=== PATIENT | male | born 1960 ===

== ENCOUNTER 2017-12-14 13:21 | Inpatient (IN) | payer OTHER ==
[~2017-12-14] VITALS: Ht 175.3 cm; Wt 86.4 kg
[~2017-12-14 13:21] MED LIST: CICL160A INH; CILO100T PO; CIPR1TAB11 PO; CMD10 PO; HYDR25TA4 PO; INSHI7030 SC; INSU1INJ SC; IRBE-37 PO; LEVA45AE INH; NORT25CA PO; ROSU40TA PO; [UNRECOGNIZED DRUG - OTHER] TOP
[2017-12-14] MEDS ORDERED: SODIUM CHLORIDE 0.9% 1000ML 1,000 ML IV STA (13:50)
--- NOTE | 2017-12-14 13:56 | EMERGENCY ROOM VISIT NOTE ---
History Report prepared by Kimo: Tiffany Lee Under the Supervision of: Dr. Solis Amaro M.D. First contact with patient: 13:40 Chief Complaint: FOOT PAIN Stated Complaint: L FOOT PAIN History of Present Illness The patient is a 57 year old male who presents to the Emergency Room with complaints of worsening left foot pain for the past several days. He is accompanied by 2 corrections officers from [facility], where he resides. He follows with the [facility] and states they recommended a CT scan and possible evaluation by Vascular Surgery. He currently has 79% stenosis of the mid left and right leg, seen on US done 11/21/17. His left pinky toe is black and draining. The patient rates his pain as a 6/10 in severity. He admits to a history of diabetes, PVD, COPD and HTN and states his sugars have been "pretty good" recently. He denies any pain in his legs or calves. He has not experienced any shortness of breath but admits he is a current smoker. His BSG in the field was 115. 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 A total of 10 systems reviewed and were otherwise negative. Past Medical & Surgical Medical Problems: (1) COPD (chronic obstructive pulmonary disease) (2) Diabetes mellitus (3) Hypertension (4) PVD (peripheral vascular disease) Social History Smoking Status: Current Every Day Smoker Drug Use: none Marital Status: single Housing Status: other ([facility]) Occupation Status: other Current/Historical Medications Scheduled Ciclesonide (Alvesco), 2 PUFF INH QAM Cilostazol (Pletal), 100 MG PO BID Ciprofloxacin Tab (Cipro), 500 MG PO BID Emollient Ointment (Hydrophor), 1 DOSE TOP BID Hydrochlorothiazide (Hctz), 25 MG PO QAM Insulin Human Isophan/Regular (Humulin 70/30), 25 UNITS SC QAM Insulin Isophan/Regular (Humulin 70/30), 30 UNITS SC QPM Irbesartan (Avapro), 1 TAB PO DAILY Nortriptyline (Pamelor), 25 MG PO HS Rosuvastatin Calcium (Crestor), 1 TAB PO DAILY Warfarin Sod (Coumadin), 10 MG PO HS Scheduled PRN Levalbuterol Tartrate (Levalbuterol Tartrate Hfa), 45 MCG INH TID PRN for PRN Allergies Coded Allergies: NO KNOWN DRUG ALLERGIES (Verified Allergy, Unknown, ., 12/14/17) Uncoded Allergies: BEETS (Allergy, Unknown, SWELLS UP, 12/07/15) Physical Exam Vital Signs Date Time Temp Pulse Resp B/P (MAP) Pulse Ox O2 Delivery O2 Flow Rate FiO2 12/14/17 15:31 89 20 232/92 98 Room Air 12/14/17 13:23 36.8 86 18 206/83 97 Room Air Physical Exam GENERAL: Patient is in Care Home garb, handcuffed to rail, well appearing and in no acute distress. EYES: No scleral icterus, unremarkable pupils. ENT: Mucous membranes moist, no nasal congestion. NECK: No masses appreciated, no meningismus, trachea is midline. RESPIRATORY: No dyspnea. Mild wheezing in bilateral lungs, no rhonchi. CARDIOVASCULAR: Regular rate and rhythm. No murmurs, rubs, gallops appreciated. GASTROINTESTINAL: Abdomen soft, nontender, no peritonitis. Bowel sounds positive. No masses appreciated. BACK: No midline tenderness, no CVA tenderness EXTREMITIES: Left foot is mildly swollen with first and fifth toes gangrenous and weeping, with a large ulceration along medial aspect of great toe. Normal motion all extremities, no cyanosis, no edema. NEUROLOGIC: Alert and oriented, no acute motor or sensory deficits, no focal weakness, cranial nerves grossly intact. SKIN: No rash, no jaundice, no diaphoresis. Medical Decision & Procedures ER Provider Diagnostic Interpretation: Radiology results and stated below per my review and radiologist interpretation. LEFT FOOT 3 VIEWS CLINICAL HISTORY: Gangrene of the first and fifth toes. FINDINGS: 3 views of the left foot are obtained. No prior studies are available for comparison at the time of dictation. The skeletal structures are heterogeneously osteopenic. No acute fracture is seen. There is postoperative change from fusion at the first interphalangeal joint with a cortical lag screw transfixing the joint. The orthopedic hardware is intact. Chronic posttraumatic deformity is seen in the distal shaft of the third, fourth, and fifth metatarsals. No bony erosion or periostitis is identified. Pes planus is observed. Degenerative spurring is seen along the dorsal aspect of the tarsal bones. Mild soft tissue edema is seen in the forefoot. There is atherosclerotic calcification of the regional arteries. IMPRESSION: 1. Soft tissue swelling in the forefoot with no acute bony abnormality identified. 2. Osteopenia with degenerative, chronic posttraumatic, and postoperative change as above. Electronically signed by: Ankush Osorio M.D. 12/14/2017 2:42 PM Laboratory Results 12/14/17 14:15 Red Blood Count 4.84, Mean Corpuscular Volume 86.8, Mean Corpuscular Hemoglobin 30.6, Mean Corpuscular Hemoglobin Concent 35.2, Mean Platelet Volume 9.2, Neutrophils (%) (Auto) 66.8, Lymphocytes (%) (Auto) 23.4, Monocytes (%) (Auto) 7.4, Eosinophils (%) (Auto) 1.8, Basophils (%) (Auto) 0.1, Neutrophils # (Auto) 5.86, Lymphocytes # (Auto) 2.05, Monocytes # (Auto) 0.65, Eosinophils # (Auto) 0.16, Basophils # (Auto) 0.01 12/14/17 14:15 Test 12/14/17 14:15 White Blood Count 8.77 K/uL (4.8-10.8) Red Blood Count 4.84 M/uL (4.7-6.1) Hemoglobin 14.8 g/dL (14.0-18.0) Hematocrit 42.0 % (42-52) Mean Corpuscular Volume 86.8 fL (80-100) Mean Corpuscular Hemoglobin 30.6 pg (25-34) Mean Corpuscular Hemoglobin Concent 35.2 g/dl (32-36) Platelet Count 163 K/uL (130-400) Mean Platelet Volume 9.2 fL (7.4-10.4) Neutrophils (%) (Auto) 66.8 % Lymphocytes (%) (Auto) 23.4 % Monocytes (%) (Auto) 7.4 % Eosinophils (%) (Auto) 1.8 % Basophils (%) (Auto) 0.1 % Neutrophils # (Auto) 5.86 K/uL (1.4-6.5) Lymphocytes # (Auto) 2.05 K/uL (1.2-3.4) Monocytes # (Auto) 0.65 K/uL (0.11-0.59) Eosinophils # (Auto) 0.16 K/uL (0-0.5) Basophils # (Auto) 0.01 K/uL (0-0.2) RDW Standard Deviation 48.4 fL (36.4-46.3) RDW Coefficient of Variation 15.4 % (11.5-14.5) Immature Granulocyte % (Auto) 0.5 % Immature Granulocyte # (Auto) 0.04 K/uL (0.00-0.02) Anion Gap 7.0 mmol/L (3-11) Estimated GFR () 108.5 Estimated GFR (Non- 93.6 BUN/Creatinine Ratio 13.3 (10-20) Calcium Level 8.7 mg/dl (8.5-10.1) C-Reactive Protein 0.81 mg/dl (0-0.29) Chemistry Specimen Hemolysis Laboratory results as reviewed by me. Medications Administered Medications (Trade) Dose Ordered Sig/Ivelisse Route Start Time Stop Time Status Last Admin Dose Admin Sodium Chloride 1,000 ml @ 75 mls/hr [id number] STAT IV 12/14/17 13:50 12/14/17 17:16 DC 12/14/17 14:23 75 MLS/HR ED Course 1341: The patient was evaluated in room B8. A complete history and physical exam was performed. 1350: NSS 1000 ml @ 75 mls/hr IV. 1500: Upon review of his records, the [facility] Care Clinic has been treating his left great toe. This morning during dressing change they noticed the left pinky toe was gangrenous and draining large amounts of pus. 1502: I reevaluated the patient. He is resting comfortably. I discussed my recommendation he remain in the hospital for further evaluation and management and he verbalized complete understanding and agreement. 1505: I discussed the patients case with Dr. Young, [facility] Hospitalist. I discussed getting blood cultures and starting antibiotics and the hospital medicine team will consult orthopedics or vascular surgery. The patient will be further evaluated. Medical Decision 57 yr old following with wound care for great left toe infection arrives for evaluation of this and left 5th digit ischemia. Pulses weak in foot but no evidnece of acute ischemia to entire leg at this time. Clearly infected 1st and 5th digits and I suspect they both just need to be removed as clearly becoming gangrenous. There is mild swelling of foot along though otherwise no evidence of systemic infection. Mild hypoglycemia thus given some food to eat as hadn't eaten all day. I do not feel that this diabetic male, with known vasculopathy will benefit from being discharged with outpatient follow up as he likely needs more urgent evaluation by ortho/vascular. Already following with wound care and will defer abx decisions to hospitalist as he is not septic nor evidence of bacteremia at this time. Medication Reconcilliation Current Medication List: was personally reviewed by me Blood Pressure Screening Patient's blood pressure: Elevated blood pressure Blood pressure disposition: Referred to PCP (The hospital medicine team will further monitor the patients elevated blood pressure) Consults Time Called: 1500 Consulting Physician: Dr. Young, [facility] Hospitalist Returned Call: [phone] I discussed the patients case with Dr. Young, [facility] Hospitalist. I discussed getting blood cultures and starting antibiotics and the hospital medicine team will consult orthopedics or vascular surgery. The patient will be further evaluated. Impression Primary Impression: Gangrene of toe of left foot Scribe Attestation The scribe's documentation has been prepared under my direction and personally reviewed by me in its entirety. I confirm that the note above accurately reflects all work, treatment, procedures, and medical decision making performed by me. Departure Information Dispostion Being Evaluated By Hospitalist Referrals No Doctor, Assigned (PCP) Patient Instructions My [facility]
[2017-12-14 14:25] LABS: BASO % 0.1 %; BASO ABS # 0.01 K/uL (0-0.2); EOS % 1.8 %; EOS ABS # 0.16 K/uL (0-0.5); HEMOGLOBIN 14.8 g/dL (14.0-18.0); IG# 0.04 K/uL (0.00-0.02); LYMPH % 23.4 %; LYMPH ABS # 2.05 K/uL (1.2-3.4); MEAN CELL VOLUME 86.8 fL (80-100); MEAN CORPUSCULAR HEMOGLOBIN 30.6 pg (25-34); MEAN CORPUSCULAR HGB CONC 35.2 g/dl (32-36); MEAN PLATELET VOLUME 9.2 fL (7.4-10.4); MONO % 7.4 %; MONO ABS # 0.65 K/uL (0.11-0.59); NEUT % 66.8 %; NEUT ABS # 5.86 K/uL (1.4-6.5); PLATELET COUNT 163 K/uL (130-400); RED CELL DISTRIBUTION WIDTH CV 15.4 % (11.5-14.5); RED CELL DISTRIBUTION WIDTH SD 48.4 fL (36.4-46.3); WHITE BLOOD COUNT 8.77 K/uL (4.8-10.8)
--- NOTE | 2017-12-14 14:44 | DIAGNOSTIC IMAGING REPORT ---
LEFT FOOT 3 VIEWS CLINICAL HISTORY: Gangrene of the first and fifth toes. FINDINGS: 3 views of the left foot are obtained. No prior studies are available for comparison at the time of dictation. The skeletal structures are heterogeneously osteopenic. No acute fracture is seen. There is postoperative change from fusion at the first interphalangeal joint with a cortical lag screw transfixing the joint. The orthopedic hardware is intact. Chronic posttraumatic deformity is seen in the distal shaft of the third, fourth, and fifth metatarsals. No bony erosion or periostitis is identified. Pes planus is observed. Degenerative spurring is seen along the dorsal aspect of the tarsal bones. Mild soft tissue edema is seen in the forefoot. There is atherosclerotic calcification of the regional arteries. IMPRESSION: 1. Soft tissue swelling in the forefoot with no acute bony abnormality identified. 2. Osteopenia with degenerative, chronic posttraumatic, and postoperative change as above. Electronically signed by: Ankush Osorio M.D. 12/14/2017 2:42 PM Dictated Date/Time: 12/14/2017 2:37 PM
[2017-12-14 14:55] LABS: BLOOD UREA NITROGEN 12 mg/dl (7-18); CALCIUM 8.7 mg/dl (8.5-10.1); CARBON DIOXIDE 28 mmol/L (21-32); CREATININE 0.89 mg/dl (0.60-1.40); GLUCOSE 54 mg/dl (70-99); POTASSIUM 4.1 mmol/L (3.5-5.1); SODIUM 143 mmol/L (136-145)
--- NOTE | 2017-12-14 15:42 | History and Physical ---
History & Physical Date & Time of Service: Dec 14, 2017 at 15:37 Chief Complaint: L Foot Pain Primary Care Physician: Ashleigh ONTIVEROS History of Present Illness Source: patient, other (correctional officers present at bedside) Mr. Sky Palma is a 57-year-old black gentleman with significant history of peripheral vascular disease, diabetes mellitus type 2, COPD, and hypertension. Patient is regularly seen at [facility] wound care clinic. As per records, they have requested vascular surgery to evaluate patient. Patient was in his usual state of health until a month ago when he developed dull pain on the fifth toe of left foot. Initially pain was dull but has been progressively getting worse in the last 2 days pain has become significantly sharper with a 9 out of 10 in severity. Furthermore patient reports some purulent drainage coming from affected toe. Pain tends to radiate across the metatarsals but does not move up cephalad. As per records patient has a 79% stenosis of the mid leg and right leg seen on ultrasound on 21 November 2017. He denies any other symptoms. No fevers, chills, chest pain, shortness of breath, nausea, vomiting , rest of ROS is negative. In the emergency department patient is afebrile hemodynamically stable Past Medical/Surgical History Medical Problems: (1) COPD (chronic obstructive pulmonary disease) (2) Diabetes mellitus (3) Hypertension (4) PVD (peripheral vascular disease) Social History Smoking Status: Current Every Day Smoker Drug Use: none Marital Status: single Occupational Status: other Allergies Coded Allergies: NO KNOWN DRUG ALLERGIES (Verified Allergy, Unknown, ., 12/14/17) Uncoded Allergies: BEETS (Allergy, Unknown, SWELLS UP, 12/07/15) Home Medications Scheduled Ciclesonide (Alvesco), 2 PUFF INH QAM Cilostazol (Pletal), 100 MG PO BID Ciprofloxacin Tab (Cipro), 500 MG PO BID Emollient Ointment (Hydrophor), 1 DOSE TOP BID Hydrochlorothiazide (Hctz), 25 MG PO QAM Insulin Human Isophan/Regular (Humulin 70/30), 25 UNITS SC QAM Insulin Isophan/Regular (Humulin 70/30), 30 UNITS SC QPM Irbesartan (Avapro), 1 TAB PO DAILY Nortriptyline (Pamelor), 25 MG PO HS Rosuvastatin Calcium (Crestor), 1 TAB PO DAILY Warfarin Sod (Coumadin), 10 MG PO HS Scheduled PRN Levalbuterol Tartrate (Levalbuterol Tartrate Hfa), 45 MCG INH TID PRN for PRN Review of Systems Constitutional: No fever, No chills, No sweats, No weight loss, No weakness, No fatigue, No problem reported Eyes: No worsening of vision, No eye pain, No redness, No discharge, No diplopia, No problem reported ENT: No hearing loss, No unusual epistaxis, No nasal symptoms, No sore throat, No tinnitus, No dental problems, No trouble swallowing, No problem reported Respiratory: No cough, No sputum, No wheezing, No shortness of breath, No dyspnea on exertion, No dyspnea at rest, No hemoptysis, No problem reported Cardiovascular: No chest pain, No orthopnea, No PND, No edema, No claudication , No palpitations, No problem reported Abdomen: No pain, No nausea, No vomiting, No diarrhea, No constipation, No GI bleeding, No problem reported Musculoskeletal: + joint pain ((L) 5th toe), No muscle pain, No swelling, No calf pain, No problem reported Genitourinary - Male: No hematuria, No dysuria, No urinary frequency, No urinary urgency, No urinary hesitancy, No urinary retention, No urinary incontinence, No penile discharge, No lesions, No impotence, No problem reported Neurologic: No memory loss, No paralysis, No weakness, No numbness/tingling, No vertigo, No balance problems, No problem reported Psychiatric: No depression symptoms, No anhedonism, No anxiety, No insomnia, No substance abuse, No problem reported Endocrine: No fatigue, No excessive thirst, No excessive urination, No problem reported Hematologic / Lymphatic: No abnormal bleeding/bruising, No clotting problems, No swollen lymph nodes, No night sweats, No problem reported Allergic / Immunologic: No environmental allergies, No seasonal allergies, No pet sensitivities, No food allergies, No hives, No frequent infections, No poor healing, No prolonged convalescence, No problem reported Physical Exam Vital Signs Date Time Temp Pulse Resp B/P (MAP) Pulse Ox O2 Delivery O2 Flow Rate FiO2 12/14/17 15:31 89 20 232/92 98 Room Air 12/14/17 13:23 36.8 86 18 206/83 97 Room Air General Appearance: WD/WN, no apparent distress Head: normocephalic, atraumatic Eyes: PERRL, EOMI ENT: normal ENT inspection Neck: supple, no adenopathy, no JVD, trachea midline Respiratory/Chest: chest non-tender, lungs clear, normal breath sounds, no respiratory distress, no accessory muscle use Cardiovascular: regular rate, rhythm, no edema, no gallop, no JVD, no murmur, + pertinent finding (distal pulses are present but faint) Abdomen/GI: normal bowel sounds, non tender, soft Extremities/Musculoskelatal: normal inspection, no calf tenderness, no pedal edema, normal range of motion 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, no motor/sensory deficits, oriented x 3 Skin: + pertinent finding (significant color change of (L)5th toe; gangrene - no crepitus apprecaited) Diagnostics Laboratory Results Results Past 24 Hours Test 12/14/17 14:15 Range/Units White Blood Count 8.77 4.8-10.8 K/uL Red Blood Count 4.84 4.7-6.1 M/uL Hemoglobin 14.8 14.0-18.0 g/dL Hematocrit 42.0 42-52 % Mean Corpuscular Volume 86.8 80-100 fL Mean Corpuscular Hemoglobin 30.6 25-34 pg Mean Corpuscular Hemoglobin Concent 35.2 32-36 g/dl Platelet Count 163 130-400 K/uL Mean Platelet Volume 9.2 7.4-10.4 fL Neutrophils (%) (Auto) 66.8 % Lymphocytes (%) (Auto) 23.4 % Monocytes (%) (Auto) 7.4 % Eosinophils (%) (Auto) 1.8 % Basophils (%) (Auto) 0.1 % Neutrophils # (Auto) 5.86 1.4-6.5 K/uL Lymphocytes # (Auto) 2.05 1.2-3.4 K/uL Monocytes # (Auto) 0.65 0.11-0.59 K/uL Eosinophils # (Auto) 0.16 0-0.5 K/uL Basophils # (Auto) 0.01 0-0.2 K/uL RDW Standard Deviation 48.4 36.4-46.3 fL RDW Coefficient of Variation 15.4 11.5-14.5 % Immature Granulocyte % (Auto) 0.5 % Immature Granulocyte # (Auto) 0.04 0.00-0.02 K/uL Sodium Level 143 136-145 mmol/L Potassium Level 4.1 3.5-5.1 mmol/L Chloride Level 108 98-107 mmol/L Carbon Dioxide Level 28 21-32 mmol/L Anion Gap 7.0 3-11 mmol/L Blood Urea Nitrogen 12 7-18 mg/dl Creatinine 0.89 0.60-1.40 mg/dl Estimated GFR () 108.5 Estimated GFR (Non- 93.6 BUN/Creatinine Ratio 13.3 10-20 Random Glucose 54 70-99 mg/dl Calcium Level 8.7 8.5-10.1 mg/dl C-Reactive Protein 0.81 0-0.29 mg/dl Chemistry Specimen Hemolysis Diagnostic Radiology Left X-ray CLINICAL HISTORY: Gangrene of the first and fifth toes. FINDINGS: 3 views of the left foot are obtained. No prior studies are available for comparison at the time of dictation. The skeletal structures are heterogeneously osteopenic. No acute fracture is seen. There is postoperative change from fusion at the first interphalangeal joint with a cortical lag screw transfixing the joint. The orthopedic hardware is intact. Chronic posttraumatic deformity is seen in the distal shaft of the third, fourth, and fifth metatarsals. No bony erosion or periostitis is identified. Pes planus is observed. Degenerative spurring is seen along the dorsal aspect of the tarsal bones. Mild soft tissue edema is seen in the forefoot. There is atherosclerotic calcification of the regional arteries. IMPRESSION: 1. Soft tissue swelling in the forefoot with no acute bony abnormality identified. 2. Osteopenia with degenerative, chronic posttraumatic, and postoperative change as above. Impression Assessment and Plan D.E 57/M admitted for gangrene of the left foot fifth digit. Patient has a known history of peripheral vascular disease and diabetes myelitis. CRP obtained emergency department is elevated will obtain an ESR and further imaging. As per records patient is well known to the [facility] wound care center and they have requested that vascular surgery see and evaluate patient. Since diabetic infections tend to be polymicrobial patient will be covered with broad-spectrum antibiotics and will be started on intravenous vancomycin and piperacillin-tazobactam. Patient currently afebrile hemodynamically stable. 1) (L) 5th tow Gangrene - possible osteomyelitis - known Hx of PVD and DM-II - vancomycin and pipercillin-tazobactam - Vascular Surgery and Wound services consulted - obtain MRI and ESR 2) Peripheral VAscular Disease - on anticoagulation therapy - resume warfarin and cilostazol 3) Hypertension - uncontrolled - clonidine 0.1mg PO NOW - resume HCTZ 25 mg PO qAM - might need further adjustment of medications 4) Diabetes mellitus type II - check CBG as per nursing - resume insulin therapy with sliding scale - ADA diet Admit: Med/Surg VS qshift Diet: ADA< heart healthy Activity: ad leanne DVT ppx SCD; on AC therapy Code Status FULL Resuscitation Status VTE Prophylaxis Will order VTE Prophylaxis: Yes
[2017-12-14] MEDS ORDERED: GLUCAGON FOR INJ 1 MG VIAL SQ PRN (15:45)
[2017-12-14] MEDS ORDERED: GLUCOSE 40% GEL 15 GM TUBE PO PRN (15:45)
[2017-12-14] MEDS ORDERED: DEXTROSE 50% 50 ML SYR IV PRN (15:45)
[2017-12-14] MEDS ORDERED: GLUCOSE 10 TABS/TUBE PO PRN (15:45)
[2017-12-14] MEDS ORDERED: VANCOMYCIN CONSULT ACTIVE PRN (16:15)
[2017-12-14] MEDS ORDERED: CLONIDINE HCL 0.1 MG TAB PO ONE ×2 (16:15→18:45)
[2017-12-14] MEDS ORDERED: PIPERACILL/TAZOBAC CONSULT ACTIVE PRN (16:15)
[2017-12-14] MEDS ORDERED: PATIENT'S HEIGHT AND/OR WEIGHT NEEDED SCH (16:30)
[2017-12-14 16:45] VITALS: BP 190/84; PULSE 88; TEMP 36.8; O2SAT 97; Ht 175.3 cm; Wt 86.4 kg
[2017-12-14] MEDS ORDERED: PIPERACILL/TAZOBAC IV 3.375 GM in DEXTROSE 5% 100ML 100 ML IV ONE (17:16)
[2017-12-14] MEDS ORDERED: VANCOMYCIN IV 2,000 MG in SODIUM CHLORIDE 0.9% 500ML 500 ML IV ONE (17:16)
[2017-12-14] MEDS ORDERED: INSULIN HUMAN 70% NPH/30% REGULAR SC SCH (17:30)
[2017-12-14] MEDS: INSULIN ASPART 100 UNITS/ML 3 ML PEN SC SCH ×2 (17:31→21:24)
[2017-12-14] MEDS ORDERED: OXYCODONE HCL IR 5 MG TAB (IMMEDIATE RELEASE) PO STA (18:38)
[2017-12-14 18:45] VITALS: BP 206/100
[2017-12-14] MEDS: INS REG SC SCH (18:52)
[2017-12-14] MEDS: INS HUMAN ISOPH SC SCH (18:52)
--- NOTE | 2017-12-14 19:25 | Pharmacy Progress Note ---
Pharmacy Abx Initial Consult Date of Service Dec 14, 2017. Pharmacy Dosing Scope Date of Consult: 12/14/17 Consultation requested by: Dr. Velasquez Pharmacy is consulted to initiate Vancomycin and Zosyn IV dosing therapy, order appropriate labs and adjust drug dose/frequency. Subjective The patient is a 57 year old male admitted on Dec 14, 2017 at 15:54. Objective Height (Feet): 5 Height (Inches): 9.00 Weight (Kilograms): 86.360 Vital Signs (Past 12Hrs) Vital Signs Past 12 Hours Date Time Temp Pulse Resp B/P (MAP) Pulse Ox O2 Delivery O2 Flow Rate FiO2 12/14/17 16:45 36.8 88 20 190/84 97 Room Air 12/14/17 16:29 89 20 200/88 98 12/14/17 15:31 89 20 232/92 98 Room Air 12/14/17 13:23 36.8 86 18 206/83 97 Room Air Lab Results (24Hrs) Laboratory Tests (24 Hours) Test 12/14/17 14:15 12/14/17 19:04 C-Reactive Protein 0.81 mg/dl (0-0.29) H White Blood Count 8.77 K/uL (4.8-10.8) Red Blood Count 4.84 M/uL (4.7-6.1) Hemoglobin 14.8 g/dL (14.0-18.0) Hematocrit 42.0 % (42-52) Mean Corpuscular Volume 86.8 fL (80-100) Mean Corpuscular Hemoglobin 30.6 pg (25-34) Mean Corpuscular Hemoglobin Concent 35.2 g/dl (32-36) Platelet Count 163 K/uL (130-400) Mean Platelet Volume 9.2 fL (7.4-10.4) Neutrophils (%) (Auto) 66.8 % Lymphocytes (%) (Auto) 23.4 % Monocytes (%) (Auto) 7.4 % Eosinophils (%) (Auto) 1.8 % Basophils (%) (Auto) 0.1 % Neutrophils # (Auto) 5.86 K/uL (1.4-6.5) Lymphocytes # (Auto) 2.05 K/uL (1.2-3.4) Monocytes # (Auto) 0.65 K/uL (0.11-0.59) H Eosinophils # (Auto) 0.16 K/uL (0-0.5) Basophils # (Auto) 0.01 K/uL (0-0.2) Micro Results Date/Time Source Procedure Growth Status 12/14/17 18:20 Nasal MRSA DNA Surveillance Screen Pending Received Risk Factors for Resistance * Resident in a [facility] or extended-care facility --> prisoner Assessment & Plan Assessment 57 year old male on empiric IV Vancomycin and Zosyn for left 5th toe gangrene, possible osteomyelitis. * Baseline renal function unclear, but no renal impairment noted. Most recent sCr = 0.89mg/dL with estimated CrCl ~97 mL/min. Estimated pharmacokinetic parameters: * Ke ~0.085/hr, T1/2 ~8.1 hrs Plan Vancomycin IV * Loading dose: 2000 mg (~23 mg/kg) IV x 1 * Maintenance dose: 1250 mg IV (~15 mg/kg) every 10 hours * Goal trough level for osteomyelitis : 15 to 20 mcg/mL * Trough level ordered for 12/16 @ 1130 (prior to 4th dose and should be reflective of steady state) Piperacillin/tazobactam * 3.375 g bolus administered over 30 minutes, then 3.375 g IV extended infusion every 8 hours for CrCl greater than 20 mL/min Pharmacy will continue to follow and will adjust dose/frequency as necessary. Thank you.
--- NOTE | 2017-12-14 19:28 | DIAGNOSTIC IMAGING REPORT ---
MRI OF THE LEFT FOREFOOT WITHOUT IV CONTRAST CLINICAL HISTORY: Gangrene. COMPARISON STUDY: Radiographs of left foot dated 12/14/2017. TECHNIQUE: MRI of the left forefoot is performed utilizing various T1 and T2-weighted sequences in the axial, sagittal, and coronal planes. IV contrast was not administered for this examination. The examination is severely compromised by motion artifact. This degrades diagnostic utility. FINDINGS: There is susceptibility artifact identified in the first toe secondary to orthopedic fixation at the first interphalangeal joint. Susceptibility artifact degrades assessment of the adjacent osseous structures. Marrow edema is suggested in the first proximal and middle phalanges. This is difficult to assess. Chronic post traumatic deformity is suggested in the distal third through fifth metatarsals. Soft tissue edema is seen throughout the forefoot, possibly resulting cellulitis. There is myositis in the regional musculature. The flexor extensor tendons are not well visualized. No organized fluid collection is suggested but this is not well assessed. IMPRESSION: 1. Severely motion degraded examination. This compromise diagnostic utility. 2. The first toe cannot be assessed due to extensive susceptibility artifact from metallic orthopedic hardware. 3. Marrow edema is suggested within the fifth proximal and middle phalanges. Osteomyelitis would be impossible to exclude. Clinical correlation will be required. 4. Diffuse soft tissue edema is noted throughout the forefoot and suggests cellulitis. Clinical correlation will be required. Dictated: 12/14/2017 5:56 PM Transcribed: 12/14/2017 7:28 PM [place] Electronically signed by: Ankush Osorio M.D. 12/14/2017 7:57 PM Dictated Date/Time: 12/14/2017 5:56 PM
[2017-12-14 19:37] LABS: INR 1.5 (0.9-1.1)
[2017-12-14] MEDS: CILOSTAZOL 100 MG TAB PO SCH (21:25)
[2017-12-14] MEDS: WARFARIN SOD 10 MG TAB PO SCH (21:26)
[2017-12-14] MEDS: NORTRIPTYLINE HCL 25 MG CAP PO SCH (21:27)
[2017-12-14] MEDS: PIPERACILL/TAZOBAC IV 3.375 GM in DEXTROSE 5% 100ML IV SCH (21:55)
[2017-12-14 22:14] VITALS: BP 184/94; PULSE 81
[2017-12-14] MEDS: OXYCODONE HCL IR 5 MG TAB (IMMEDIATE RELEASE) PO PRN (23:41)
[2017-12-15 00:22] VITALS: BP 176/93; PULSE 77; TEMP 37.1; O2SAT 97
[2017-12-15 05:33] LABS: BASO % 0.1 %; BASO ABS # 0.01 K/uL (0-0.2); EOS % 2.4 %; EOS ABS # 0.19 K/uL (0-0.5); HEMATOCRIT 36.5 % (42-52); HEMOGLOBIN 12.3 g/dL (14.0-18.0); IG# 0.04 K/uL (0.00-0.02); LYMPH % 34.3 %; LYMPH ABS # 2.73 K/uL (1.2-3.4); MEAN CELL VOLUME 87.3 fL (80-100); MEAN CORPUSCULAR HEMOGLOBIN 29.4 pg (25-34); MEAN CORPUSCULAR HGB CONC 33.7 g/dl (32-36); MEAN PLATELET VOLUME 8.7 fL (7.4-10.4); MONO % 9.7 %; MONO ABS # 0.77 K/uL (0.11-0.59); NEUT ABS # 4.22 K/uL (1.4-6.5); PLATELET COUNT 145 K/uL (130-400); RED CELL DISTRIBUTION WIDTH CV 15.2 % (11.5-14.5); RED CELL DISTRIBUTION WIDTH SD 48.2 fL (36.4-46.3); WHITE BLOOD COUNT 7.96 K/uL (4.8-10.8)
[2017-12-15 06:10] LABS: CALCIUM 8.3 mg/dl (8.5-10.1); CREATININE 0.91 mg/dl (0.60-1.40); POTASSIUM 3.8 mmol/L (3.5-5.1)
[2017-12-15] MEDS: PIPERACILL/TAZOBAC IV 3.375 GM in DEXTROSE 5% 100ML IV SCH ×3 (06:23→21:41)
[2017-12-15] MEDS: VANCOMYCIN IV 1,250 MG in SODIUM CHLORIDE 0.9% 250ML 250 ML IV SCH ×2 (06:23→16:13)
[2017-12-15] MEDS: OXYCODONE HCL IR 5 MG TAB (IMMEDIATE RELEASE) PO PRN ×4 (06:24→23:34)
[2017-12-15 07:14] VITALS: BP 173/84; PULSE 73; TEMP 36.8; O2SAT 97
[2017-12-15] MEDS ORDERED: INSULIN 70% ASPART PROTAMINE/30% ASPART SC SCH (08:00)
[2017-12-15] MEDS: INSULIN ASPART 100 UNITS/ML 3 ML PEN SC SCH ×4 (09:31→21:36)
[2017-12-15] MEDS: INS REG SC SCH ×2 (09:35→17:54)
[2017-12-15] MEDS: INS HUMAN ISOPH SC SCH ×2 (09:35→17:54)
[2017-12-15] MEDS: IRBESARTAN 150 MG TAB PO SCH (09:36)
[2017-12-15] MEDS: ROSUVASTATIN CALCIUM 20 MG TAB PO SCH (09:36)
[2017-12-15] MEDS: CILOSTAZOL 100 MG TAB PO SCH ×2 (09:36→21:40)
[2017-12-15] MEDS: HYDROCHLOROTHIAZIDE 25 MG TAB PO SCH (09:36)
--- NOTE | 2017-12-15 12:09 | Progress Note ---
Subjective Date of Service: Dec 15, 2017. Subjective Pt evaluation today including: conversation w/ patient, physical exam, chart review, lab review, review of studies, review of inpatient medication list Pain: 8-9 Voiding: no voiding problems, no incontinence Pt is seen and examined by me. Pt still has alot of pain in his toe, but denies cp,sob,dizziness,palpitation and loss of consciousness. Problem List Medical Problems: (1) Gangrene of left foot Status: Acute (2) Gangrene of toe of left foot Status: Acute Review of Systems Musculoskeletal: + joint pain (left fifth toe) Objective Vital Signs Date Time Temp Pulse Resp B/P (MAP) Pulse Ox O2 Delivery O2 Flow Rate FiO2 12/15/17 10:05 Room Air 12/15/17 07:14 36.8 73 18 173/84 (113) 97 Room Air 12/15/17 00:22 37.1 77 18 176/93 (120) 97 Room Air 12/14/17 23:59 Room Air 12/14/17 22:14 81 184/94 (124) 12/14/17 18:45 206/100 (135) 12/14/17 16:45 36.8 88 20 190/84 97 Room Air 12/14/17 16:29 89 20 200/88 98 12/14/17 15:31 89 20 232/92 98 Room Air 12/14/17 13:23 36.8 86 18 206/83 97 Room Air Physical Exam Comments: General Appearance: WD/WN, no apparent distress Head: normocephalic, atraumatic Eyes: PERRL, EOMI ENT: normal ENT inspection Neck: supple, no adenopathy, no JVD, trachea midline Respiratory/Chest: chest non-tender, lungs clear, normal breath sounds, no respiratory distress, no accessory muscle use Cardiovascular: regular rate, rhythm, no edema, no gallop, no JVD, no murmur, + pertinent finding (distal pulses are present but faint) Abdomen/GI: normal bowel sounds, non tender, soft Extremities/Musculoskelatal: normal inspection, no calf tenderness, no pedal edema, normal range of motion Neurologic/Psych: record maker II-XII nml as tested, no motor/sensory deficits, oriented x 3 Skin: + pertinent finding (significant color change of (L)5th toe; gangrene - no crepitus apprecaited) Laboratory Results Last 24 Hours Test 12/14/17 14:15 12/14/17 16:47 12/14/17 19:04 12/14/17 20:34 White Blood Count 8.77 K/uL Red Blood Count 4.84 M/uL Hemoglobin 14.8 g/dL Hematocrit 42.0 % Mean Corpuscular Volume 86.8 fL Mean Corpuscular Hemoglobin 30.6 pg Mean Corpuscular Hemoglobin Concent 35.2 g/dl Platelet Count 163 K/uL Mean Platelet Volume 9.2 fL Neutrophils (%) (Auto) 66.8 % Lymphocytes (%) (Auto) 23.4 % Monocytes (%) (Auto) 7.4 % Eosinophils (%) (Auto) 1.8 % Basophils (%) (Auto) 0.1 % Neutrophils # (Auto) 5.86 K/uL Lymphocytes # (Auto) 2.05 K/uL Monocytes # (Auto) 0.65 K/uL Eosinophils # (Auto) 0.16 K/uL Basophils # (Auto) 0.01 K/uL RDW Standard Deviation 48.4 fL RDW Coefficient of Variation 15.4 % Immature Granulocyte % (Auto) 0.5 % Immature Granulocyte # (Auto) 0.04 K/uL Sodium Level 143 mmol/L Potassium Level 4.1 mmol/L Chloride Level 108 mmol/L Carbon Dioxide Level 28 mmol/L Anion Gap 7.0 mmol/L Blood Urea Nitrogen 12 mg/dl Creatinine 0.89 mg/dl Estimated GFR () 108.5 Estimated GFR (Non- 93.6 BUN/Creatinine Ratio 13.3 Random Glucose 54 mg/dl Calcium Level 8.7 mg/dl C-Reactive Protein 0.81 mg/dl Chemistry Specimen Hemolysis Bedside Glucose 124 mg/dl 233 mg/dl Erythrocyte Sedimentation Rate 59 mm/hr Prothrombin Time 16.1 SECONDS Prothromb Time International Ratio 1.5 Test 12/15/17 05:06 12/15/17 06:31 12/15/17 06:54 White Blood Count 7.96 K/uL Red Blood Count 4.18 M/uL Hemoglobin 12.3 g/dL Hematocrit 36.5 % Mean Corpuscular Volume 87.3 fL Mean Corpuscular Hemoglobin 29.4 pg Mean Corpuscular Hemoglobin Concent 33.7 g/dl Platelet Count 145 K/uL Mean Platelet Volume 8.7 fL Neutrophils (%) (Auto) 53.0 % Lymphocytes (%) (Auto) 34.3 % Monocytes (%) (Auto) 9.7 % Eosinophils (%) (Auto) 2.4 % Basophils (%) (Auto) 0.1 % Neutrophils # (Auto) 4.22 K/uL Lymphocytes # (Auto) 2.73 K/uL Monocytes # (Auto) 0.77 K/uL Eosinophils # (Auto) 0.19 K/uL Basophils # (Auto) 0.01 K/uL RDW Standard Deviation 48.2 fL RDW Coefficient of Variation 15.2 % Immature Granulocyte % (Auto) 0.5 % Immature Granulocyte # (Auto) 0.04 K/uL Sodium Level 138 mmol/L Potassium Level 3.8 mmol/L Chloride Level 104 mmol/L Carbon Dioxide Level 29 mmol/L Anion Gap 5.0 mmol/L Blood Urea Nitrogen 13 mg/dl Creatinine 0.91 mg/dl Est Creatinine Clear Calc Drug Dose 95.2 ml/min Estimated GFR () 106.5 Estimated GFR (Non- 91.9 BUN/Creatinine Ratio 14.0 Random Glucose 52 mg/dl Calcium Level 8.3 mg/dl Bedside Glucose 74 mg/dl 95 mg/dl Assessment and Plan 57/M admitted for gangrene of the left foot fifth digit. Patient has a known history of peripheral vascular disease and diabetes myelitis. CRP obtained emergency department is elevated will obtain an ESR and further imaging. As per records patient is well known to the [facility] wound care center and they have requested that vascular surgery see and evaluate patient. Since diabetic infections tend to be polymicrobial patient will be covered with broad- spectrum antibiotics and will be started on intravenous vancomycin and piperacillin-tazobactam. Patient currently afebrile hemodynamically stable. 1) (L) 5th tow Gangrene - possible osteomyelitis - known Hx of PVD and DM-II - vancomycin and pipercillin-tazobactam - Vascular Surgery and Wound services consulted- pending - MRI: Marrow edema is suggested within the fifth proximal and middle phalanges.Osteomyelitis would be impossible to exclude. Clinical correlation will be required. Diffuse soft tissue edema is noted throughout the forefoot and suggests cellulitis. 2) Peripheral Vascular Disease - on anticoagulation therapy - resume warfarin and cilostazol 3) Hypertension - uncontrolled - clonidine 0.1mg PO NOW - resume HCTZ 25 mg PO qAM - might need further adjustment of medications 4) Diabetes mellitus type II - check CBG as per nursing - resume insulin therapy with sliding scale - ADA diet Admit: Med/Surg VS qshift Diet: ADA< heart healthy Activity: ad leanne DVT ppx SCD; on AC therapy Code Status FULL Continued [facility] stay due to: multiple IV medications needed Discharge planning: other
[2017-12-15 15:16] VITALS: BP 153/78; PULSE 88; TEMP 37; O2SAT 95
[2017-12-15 16:00] VITALS: O2SAT 95
[2017-12-15] MEDS: NORTRIPTYLINE HCL 25 MG CAP PO SCH (21:40)
[2017-12-15] MEDS: WARFARIN SOD 10 MG TAB PO SCH (21:41)
[2017-12-15 23:21] VITALS: BP 168/83; PULSE 84; TEMP 36.7; O2SAT 98
[2017-12-16] MEDS: VANCOMYCIN IV 1,250 MG in SODIUM CHLORIDE 0.9% 250ML 250 ML IV SCH ×3 (01:52→21:43)
[2017-12-16] MEDS: PIPERACILL/TAZOBAC IV 3.375 GM in DEXTROSE 5% 100ML IV SCH ×4 (06:21→21:43)
[2017-12-16] MEDS: OXYCODONE HCL IR 5 MG TAB (IMMEDIATE RELEASE) PO PRN ×3 (06:29→18:37)
[2017-12-16 07:25] VITALS: BP 181/81; PULSE 98; TEMP 36.8; O2SAT 97
[2017-12-16 07:33] LABS: CREATININE 0.95 mg/dl (0.60-1.40)
[2017-12-16] MEDS: IRBESARTAN 150 MG TAB PO SCH (08:06)
[2017-12-16] MEDS: CILOSTAZOL 100 MG TAB PO SCH ×2 (08:06→21:00)
[2017-12-16] MEDS: HYDROCHLOROTHIAZIDE 25 MG TAB PO SCH (08:06)
[2017-12-16] MEDS: ROSUVASTATIN CALCIUM 20 MG TAB PO SCH (08:06)
[2017-12-16] MEDS: INS HUMAN ISOPH SC SCH ×2 (08:09→18:34)
[2017-12-16] MEDS: INSULIN ASPART 100 UNITS/ML 3 ML PEN SC SCH ×4 (08:09→20:59)
[2017-12-16] MEDS: INS REG SC SCH ×2 (08:09→18:34)
[2017-12-16] MEDS ORDERED: OPTIRAY 320 IV PRN (08:15)
--- NOTE | 2017-12-16 08:34 | CARDIOLOGY CONSULTATION ---
DATE OF CONSULTATION: 12/16/2017 CONSULTATION REQUESTED BY: Silvano Velasquez MD. REASON FOR CONSULTATION: Lower extremity ulceration, question peripheral arterial disease. HISTORY OF PRESENT ILLNESS: Mr. Palma is a 57-year-old man with a history of longstanding insulin-dependent diabetes, hypertension, hyperlipidemia, COPD, ongoing tobacco abuse, and peripheral arterial disease who was previously seen by me at the wound care center and was admitted to [facility] in the setting of progression of new ulceration involving his left fifth toe. Cardiology consulted for further management of his peripheral arterial disease. The patient has been followed by the wound care center for an ulceration involving his first digit on his left foot for more than a month. This initially occurred in the setting of clipping toenail. Of note, patient has a prior history of hammertoe surgery involving that first digit on his left foot with questionable in place hardware at that site. The patient's previous peripheral arterial disease workup has included a lower extremity duplex done at the retirement where he is currently located which showed a right mid SFA stenosis, read as 75-90% and also DPA stenosis of the left which was read as 75% stenosis with a peak systolic velocity of 126. More recently, the patient's first digit ulceration has been slowly healing. The day prior to admission he was noted at the retirement to have pus draining from the fifth digit on his left foot and admission was recommended. Since admission, he has been started on broad spectrum antibiotics with vancomycin and Zosyn. He denies any fevers, chills or worsening pain at his foot. PAST MEDICAL HISTORY: 1. Diabetes, longstanding, on insulin. 2. Hypertension, difficult to control. 3. Dyslipidemia. 4. Prior hammertoe surgery. 5. Questionable COPD. 6. Questionable coronary artery disease. 7. History of possible left lower extremity DVT in 2009 on anticoagulation. 8. Peripheral arterial disease. SOCIAL HISTORY: The patient currently a prisoner at [facility]. He is an ongoing smoker. FAMILY HISTORY: Denies family history of premature coronary artery disease or sudden cardiac . ALLERGIES: No known drug allergies. HOME MEDICATIONS: Include ciclesonide, cilostazol, ciprofloxacin, hydrochlorothiazide, insulin, Valsartan, nortriptyline, rosuvastatin and warfarin. REVIEW OF SYSTEMS: Complete and otherwise negative unless listed in HPI. PHYSICAL EXAMINATION: VITAL SIGNS: Temperature 36.8, pulse 98, blood pressure 181/81, satting 97% on room air. GENERAL: The patient appears comfortable in no acute distress. HEENT: Sclerae are anicteric. Oropharynx is clear. LUNGS: Clear to auscultation bilaterally. HEART: Regular rate and rhythm with no appreciable murmurs. ABDOMEN: Soft, nontender. EXTREMITIES: He has 1+ radial pulses bilaterally. Distal lower extremities are thin without significant edema. DP and PT pulses nonpalpable bilaterally. Distal extremity is warm. Capillary refill could not be assessed. He has a healing small ulceration over the medial aspect of his first digit on his left foot. This is improved from a week and a half ago. His fifth digit is black, foul smelling without significant drainage. NEUROLOGIC: Decreased sensation to light touch in his feet bilaterally. PSYCHIATRIC: He is alert and oriented x3. LABORATORY DATA: White blood cell count on presentation 8.7, hemoglobin of 14.8, platelets of 163. His INR was 1.5. His creatinine today is 0.95. C-reactive protein mildly elevated at 0.81. IMAGING: Lower extremity MRI suggested marrow edema involving the fifth proximal and mid phalanges. Suspicion for osteomyelitis and diffuse soft tissue edema noted throughout the forefoot suggest possible cellulitis. IMPRESSION AND PLAN: 1. Left lower extremity diabetic foot ulceration, gangrenous fifth digit, suspected osteomyelitis. 2. Moderate peripheral arterial disease by prior lower extremity arterial duplex. 3. Insulin-dependent diabetes. 4. Hypertension. 5. Ongoing tobacco use. 6. Prior deep venous thrombosis on anticoagulation. 7. Dyslipidemia on high intensity statin. Mr. Palma is here with infection of fifth digit on his left foot in the setting of prior lower extremity arterial duplex suggesting moderate disease. Reviewed prior ultrasound report and velocities noted do not correlate with degree of stenosis suggested in final impression. ABIs were within normal limits. Recommend additional noninvasive imaging at this time and would obtain a CTA with bilateral lower extremity runoff to further evaluate left lower extremity arterial system. Otherwise, agree with continued antibiotics. Recommend consulting orthopedics for management of osteomyelitis/gangrenous digit. The patient previously on anticoagulation for what sounds to be a remote DVT. In case need for possible angiogram, possible surgical resection we would stop Coumadin at this time. Should be on baby aspirin. Otherwise, continue current statin and titrate antihypertensives. Further recommendations pending findings on CTA. Thank you for allowing us to participate in the care of this patient. CONTRERAS
[2017-12-16] MEDS ORDERED: VANCOMYCIN TROUGH ONE (11:30)
--- NOTE | 2017-12-16 14:05 | Pharmacy Progress Note ---
Pharmacy Abx Dose Short Note Date of Service Dec 16, 2017. Assessment & Plan 12/17/17 Trough therapeutic at 20.4. small decline in renal fxn overnight. Will lengthen dosing interval from q10 to q12. Trough ordered for 12/20/17 @0330. 12/16/17 Mr. Palma' trough prior to Css came back therapeutic, 18.1mcg/mL. Will continue current dose and regimen, given renal fxn has remained stable and he has a low risk of accumulation. Further, given the possibility of osteomyelitis in the setting of PVD I feel levels closer to 20mcg/mL should be achieved. Will order lvl for 12/18/17 @0330 to ensure we are achieving therapeutic lvls in Mr. Palma. R/o gangrene: Spoke with Dr. Craven about possibly adding Clindamycin for anti- toxin affect. Being deferred to ortho at this juncture. Pharmacy will continue to follow and will adjust dose/frequency as necessary. Thank you.
--- NOTE | 2017-12-16 14:06 | DIAGNOSTIC IMAGING REPORT ---
ANGIO AA REGGIE [facility]OFF CLINICAL HISTORY: 57 years-old Male presenting with gangrene of the left foot. TECHNIQUE: Multidetector CT angiography of the abdomen and pelvis with bilateral lower extremity runoff was performed after the administration of intravenous contrast. 3-D volumetric and/or maximum intensity projection (MIP) images were subsequently reconstructed for review. IV contrast: 120 mL of Optiray 320. A dose lowering technique was used consistent with the principles of ALARA (as low as reasonably achievable). Stenosis measurements were based on NASCET-like criteria. COMPARISON: None. CT DOSE (mGy.cm): The estimated cumulative dose is 1687.39 mGy.cm. FINDINGS: Fiction And Nonfiction Author topogram: Unremarkable. Vasculature: Abdomen and pelvis: Mild calcified atherosclerotic plaque of the normal caliber abdominal aorta. Celiac, superior mesenteric, bilateral single renal, and inferior mesenteric arteries patent. A replaced right hepatic artery is noted arising from the superior mesenteric artery. Atherosclerosis of the patent SMA. Bilateral common, internal, and external iliac arteries patent despite calcified atherosclerotic plaque. Right lower extremity: Common, superficial, and deep femoral arteries patent though with extensive calcified atherosclerotic plaque. Calcified and noncalcified atherosclerotic plaque mildly narrows the right popliteal artery (approximately 25% stenosis). Allowing for extensive calcified atherosclerotic plaque grossly patent three-vessel runoff in the right lower leg. Patent vasculature along the dorsal and plantar aspects of the right foot. Left lower extremity: Common, superficial, and deep femoral arteries patent though with extensive calcified atherosclerotic plaque. Complete occlusion of the distal most left superficial femoral artery at the abductor hiatus (series 3 image 6:30). Reconstitution of the proximal most popliteal artery via deep femoral collateral vessels. Noncalcified atherosclerotic plaque results in narrowing of the mid left popliteal artery (approximately 50% stenosis). Poor opacification of the mid to distal anterior tibial artery. The degree of calcified atherosclerotic plaque of the posterior tibial artery makes assessment of its patency difficult. The peroneal artery is widely patent though calcified atherosclerotic plaque. Opacification of the dorsal and plantar arteries of the left foot though less robustly than on the right. Remaining abdomen and pelvis: Lung bases: Dependent reticulation and architectural distortion suggesting scarring. Emphysema may be present. Normal heart size. No pericardial or pleural effusion. Liver: Normal morphology. No liver lesion allowing for the early arterial phase of contrast. Biliary: Pneumobilia. Gallbladder surgically absent. Pancreas: Moderate parenchymal atrophy. Spleen: Normal. Adrenal glands: Nonspecific nodular thickening of the left adrenal gland. Right adrenal gland normal. Kidneys and ureters: Normal. No hydronephrosis. Bladder: Circumferential bladder wall thickening. Pelvic organs: Prostate enlargement likely secondary to benign prostatic hyperplasia. Bowel: Moderate stool burden. The appendix is normal. No bowel obstruction. Peritoneal cavity: No free fluid or intraperitoneal gas. Lymph nodes: No enlarged lymph nodes in the abdomen or pelvis. Abdominal wall: Fat and fluid containing right inguinal hernia smaller fat-containing left inguinal hernia. Mild body wall edema diffusely. Musculoskeletal: Degenerative changes of the spine. Tricompartmental degenerative changes of the knees. IMPRESSION: 1. Focal short segment occlusion of the distal left superficial femoral artery to the proximal left popliteal artery, where there is reconstitution of flow. Poor opacification of the anterior and posterior left tibial arteries with relative asymmetry in the robustness of opacification of the left foot arteries versus the right. The degree of calcified atherosclerotic plaque makes assessment for complete occlusion of the small vessels difficult. 2. Patent right lower extreme the arteries. 3. Circumferential bladder wall thickening likely chronic outlet obstruction in the setting of prostatomegaly. 4. Pneumobilia is of uncertain etiology but mild reflects sphincter Oddi dysfunction or prior sphincterotomy. 5. Bilateral inguinal hernias. 6. Bilateral tricompartmental degenerative changes of the knees. Electronically signed by: Bladimir Schmitz M.D. 12/16/2017 2:05 PM Dictated Date/Time: 12/16/2017 1:47 PM
[2017-12-16 16:00] VITALS: O2SAT 95
[2017-12-16 16:18] VITALS: BP 142/76; PULSE 93; TEMP 37.1; O2SAT 97
--- NOTE | 2017-12-16 17:08 | Progress Note ---
Subjective Date of Service: Dec 16, 2017. Subjective Pt evaluation today including: conversation w/ patient Pt has no pain in his L foot at this time. Swelling has also resolved. He now has pain and swelling in his L knee, which he is quite clear was not present yesterday. No trauma. It was first noted this AM. Guards present were with him yesterday and state this was not there yesterday either. Stable otherwise. Pt denies fever, SOB, chest pain, abd pain, n/v/c/d. Tolerating PO without issue. Problem List Medical Problems: (1) Gangrene of left foot Status: Acute (2) Gangrene of toe of left foot Status: Acute Review of Systems All Other Systems: Reviewed and Negative Objective Vital Signs Date Time Temp Pulse Resp B/P (MAP) Pulse Ox O2 Delivery O2 Flow Rate FiO2 12/16/17 16:18 37.1 93 18 142/76 (98) 97 Room Air 12/16/17 08:00 Room Air 12/16/17 07:25 36.8 98 18 181/81 (114) 97 Room Air 12/16/17 00:30 Room Air 12/15/17 23:21 36.7 84 18 168/83 (111) 98 Room Air Physical Exam General Appearance: WD/WN, no apparent distress Eyes: normal inspection, sclerae normal Respiratory/Chest: normal breath sounds, no respiratory distress Cardiovascular: regular rate, rhythm, + normal peripheral pulses Abdomen: non tender, soft Extremities: non-tender, no pedal edema, + pertinent finding (L knee is swollen and diffusely TTP) Neurologic/Psychiatric: alert, normal mood/affect, oriented x 3 Skin: normal color, warm/dry Laboratory Results Last 24 Hours Test 12/15/17 20:37 12/16/17 03:07 12/16/17 03:47 12/16/17 06:37 Bedside Glucose 116 mg/dl 42 mg/dl 81 mg/dl Creatinine 0.95 mg/dl Est Creatinine Clear Calc Drug Dose 91.2 ml/min Estimated GFR () 101.1 Estimated GFR (Non- 87.3 Test 12/16/17 08:04 12/16/17 11:20 12/16/17 11:57 Bedside Glucose 230 mg/dl 289 mg/dl Vancomycin Level Trough 18.1 mcg/ml Assessment and Plan 57/M admitted for gangrene of the left foot fifth digit. Patient has a known history of peripheral vascular disease and diabetes myelitis. CRP obtained emergency department is elevated will obtain an ESR and further imaging. As per records patient is well known to the [facility] wound care center and they have requested that vascular surgery see and evaluate patient. Since diabetic infections tend to be polymicrobial patient will be covered with broad- spectrum antibiotics and will be started on intravenous vancomycin and piperacillin-tazobactam. Patient currently afebrile hemodynamically stable. 1) (L) 5th tow Gangrene - possible osteomyelitis, unable to exclude with MRI - known Hx of PVD and DM-II - vancomycin and pipercillin-tazobactam Follows with Dr. Mendez for vasc. Recs for ortho c/s and CTA b/l LE Ortho c/s pending 2) Peripheral Vascular Disease - on anticoagulation therapy - holding coumadin for possible OR 3) Hypertension - uncontrolled - clonidine 0.1mg PO NOW - resume HCTZ 25 mg PO qAM - might need further adjustment of medications 4) Diabetes mellitus type II - check CBG as per nursing - resume insulin therapy with sliding scale - ADA diet Admit: Med/Surg VS qshift Diet: ADA< heart healthy Activity: ad leanne DVT ppx SCD Code Status FULL Continued [facility] stay due to: multiple IV medications needed Discharge planning: other
--- NOTE | 2017-12-16 18:27 | ORTHOPEDIC CONSULTATION ---
DATE OF CONSULTATION: 12/16/2017 HISTORY OF PRESENT ILLNESS: This is a 57-year-old [facility] inmate seen at the request of Dr. Velasquez, for osteomyelitis and gangrene of the left fifth toe. Apparently, the patient has ongoing history of peripheral vascular disease, insulin-requiring diabetes mellitus for the last 10 years, COPD, hypertension, tobacco abuse. He has seen in the past by [facility] and he has been under the care of the wound care center and the vascular surgery for evaluations. Approximately a month ago, he developed pain in the left fifth toe and then eventually had drainage and discharge. He was admitted to the hospital for IV antibiotics. He has a 79% stenosis of his mid leg and right leg for an ultrasound dated 11/21/2017. He had no fevers, chills, nausea, vomiting, diarrhea, shortness of breath or chest pain. PAST MEDICAL HISTORY: As stated above. PAST SURGICAL HISTORY: Prior surgeries of his foot unrelated. ALLERGIES: No known drug allergies. HE HAS FOOD ALLERGY TO BEATS WITH SWELLING. MEDICATIONS: Alvesco 2 puffs q.a.m., Pletal 100 mg p.o. b.i.d.; Cipro 500 mg p.o. b.i.d., discontinued; Hydrophor one dose topical b.i.d., hydrochlorothiazide 25 mg p.o. q.a.m., Humulin 70/30 25 units q.a.m., Humulin 70/30 units q.p.m., Avapro 1 tab p.o. daily, Pamelor 25 mg p.o. at bedtime, Crestor 1 tab p.o. daily, Coumadin 10 mg p.o. at bedtime, p.r.n., Levalbuterol tartrate 45 mcg inhaled t.i.d. p.r.n. New medications added - vancomycin and Zosyn. SOCIAL HISTORY: He is a current everyday smoker. Denies current drug use or alcohol use. He is incarcerated. He is single. PHYSICAL EXAMINATION: GENERAL: This is a 57-year-old -[place] gentleman sitting at bedside, eating his dinner, business assistant is present. EXTREMITIES: Examination of the lower extremities demonstrates significantly dried and cracked skin on the left foot with 2 plantar ulcers which appeared to be in varying degrees of healing. There is no discharge. He has a malodorous fifth toe which has a slight foul-smelling discharge. The skin is hypertrophic and dried, consistent with gangrene changes distally. The fifth toe essentially is insensate to light touch. Deep pressure produced discomfort in any region of the forefoot. Dorsalis pedis and posterior tibial pulses are nonpalpable with digital pressure. The foot is moderately warm. Difficult to assess capillary refill due to the condition of the patient's skin. He has a stocking distribution neuropathic changes with loss of light touch from the distal tibia extending distally to the toes. This was involving bilateral feet. He also has a thickened hypertrophic skin of the fifth toe with no active discharge or drainage; however appearance of hypertrophic callus skin with some degree of healing ulceration. IMAGING DATA: Radiographs and other studies were reviewed. LABORATORY DATA: Reviewed. IMPRESSION: 1. Left fifth toe gangrene. 2. Peripheral vascular disease with noted partial occlusion superficial femoral artery. 3. Ulceration of the great toe, left foot. 4. Insulin-requiring diabetes mellitus. 5. Ongoing tobacco abuse. RECOMMENDATIONS: The patient is optimized for surgical intervention, per Dr. Mendez in any other procedures that he may deem necessary to perform to improve patient's peripheral vascular status, would recommend amputation of the fifth toe, at minimum. The patient is at high risk for requiring a transmetatarsal amputation versus BKA, depending upon flow distal to the trifurcation, as per Dr. Mendez' assessments. Will follow with you. Thank for the opportunity to consult in care of this patient.
[2017-12-16] MEDS: NORTRIPTYLINE HCL 25 MG CAP PO SCH (21:00)
[2017-12-16 23:07] VITALS: BP 152/83; PULSE 94; TEMP 37.1; O2SAT 96
[2017-12-17] MEDS: PIPERACILL/TAZOBAC IV 3.375 GM in DEXTROSE 5% 100ML IV SCH ×3 (06:04→21:38)
[2017-12-17] MEDS: INSULIN ASPART 100 UNITS/ML 3 ML PEN SC SCH ×4 (06:30→21:45)
[2017-12-17 07:12] VITALS: BP 132/81; PULSE 98; TEMP 37.1; O2SAT 96
[2017-12-17 07:13] LABS: INR 1.6 (0.9-1.1)
[2017-12-17] MEDS: VANCOMYCIN IV 1,250 MG in SODIUM CHLORIDE 0.9% 250ML 250 ML IV SCH ×2 (07:25→18:25)
[2017-12-17] MEDS: IRBESARTAN 150 MG TAB PO SCH (07:26)
[2017-12-17] MEDS: ROSUVASTATIN CALCIUM 20 MG TAB PO SCH (07:26)
[2017-12-17] MEDS: CILOSTAZOL 100 MG TAB PO SCH ×2 (07:26→21:02)
[2017-12-17] MEDS: HYDROCHLOROTHIAZIDE 25 MG TAB PO SCH (07:26)
[2017-12-17 07:36] LABS: CREATININE 1.08 mg/dl (0.60-1.40)
[2017-12-17] MEDS: INS HUMAN ISOPH SC SCH ×2 (08:02→18:32)
[2017-12-17] MEDS: INS REG SC SCH ×2 (08:02→18:32)
[2017-12-17] MEDS ORDERED: SENNA 8.6 MG TAB PO ONE (11:30)
[2017-12-17] MEDS ORDERED: MAGNESIUM HYDROXIDE SUSP 30 ML UDC PO ONE (11:30)
--- NOTE | 2017-12-17 12:47 | Progress Note ---
Subjective Date of Service: Dec 17, 2017. Subjective Pt evaluation today including: conversation w/ patient Pt notes no pain to L foot. Pain and swelling of L knee are much improved. Still present. Toleration PO without issue. Pt denies fever, SOB, chest pain, abd pain, n/v. Nursing informs me that pt has not had a bowel movement x3 days. Problem List Medical Problems: (1) Gangrene of left foot Status: Acute (2) Gangrene of toe of left foot Status: Acute Review of Systems All Other Systems: Reviewed and Negative Objective Vital Signs Date Time Temp Pulse Resp B/P (MAP) Pulse Ox O2 Delivery O2 Flow Rate FiO2 12/17/17 08:00 Room Air 12/17/17 07:12 37.1 98 18 132/81 (98) 96 Room Air 12/17/17 00:00 Room Air 12/16/17 23:07 37.1 94 18 152/83 (106) 96 Room Air 12/16/17 16:18 37.1 93 18 142/76 (98) 97 Room Air 12/16/17 16:00 95 Room Air Physical Exam Comments: General Appearance: WD/WN, no apparent distress Eyes: normal inspection, sclerae normal Respiratory/Chest: normal breath sounds, no respiratory distress Cardiovascular: regular rate, rhythm, + normal peripheral pulses Abdomen: non tender, soft Extremities: no pedal edema, + pertinent finding (L knee swelling is mostly resolved and with minimal TTP) Neurologic/Psychiatric: alert, normal mood/affect, oriented x 3 Skin: normal color, warm/dry Laboratory Results Last 24 Hours Test 12/16/17 17:04 12/16/17 20:18 12/17/17 06:33 Bedside Glucose 157 mg/dl 197 mg/dl Prothrombin Time 16.7 SECONDS Prothromb Time International Ratio 1.6 Creatinine 1.08 mg/dl Est Creatinine Clear Calc Drug Dose 80.2 ml/min Estimated GFR () 86.6 Estimated GFR (Non- 74.7 Assessment and Plan 57/M admitted for gangrene of the left foot fifth digit. Patient has a known history of peripheral vascular disease and diabetes myelitis. CRP obtained emergency department is elevated will obtain an ESR and further imaging. As per records patient is well known to the [facility] wound care manton and they have requested that vascular surgery see and evaluate patient. Since diabetic infections tend to be polymicrobial patient will be covered with broad- spectrum antibiotics and will be started on intravenous vancomycin and piperacillin-tazobactam. Patient currently afebrile hemodynamically stable. 1) (L) 5th tow Gangrene - possible osteomyelitis, unable to exclude with MRI - known Hx of PVD and DM-II - vancomycin and pipercillin-tazobactam Follows with Dr. Mendez for vasc issues CTA noted with L superficial femoral and L popliteal arterial occlusions Ortho planning for amputation of L 5th toe and high risk for requiring BKA 2) Peripheral Vascular Disease - on anticoagulation therapy - holding coumadin for possible OR 3) Hypertension labile on admission, now improved Cont HCTZ 25 mg PO qAM - might need further adjustment of medications 4) Diabetes mellitus type II - resume insulin therapy with sliding scale - ADA diet Add MOM/senna for constipation Admit: Med/Surg VS qshift Diet: ADA< heart healthy Activity: ad leanne DVT ppx SCD Code Status FULL Continued [facility] stay due to: multiple IV medications needed Discharge planning: other
--- NOTE | 2017-12-17 12:50 | Cardiology Follow-Up ---
Subjective Subjective Date of Service: Dec 17, 2017. Pt evaluation today including: conversation w/ patient, physical exam, chart review, lab review, review of studies, review of inpatient medication list Additional Details: Patient feeling well. No foot pain. No chest pain, shortness of breath, fevers or chills. Problem List Medical Problems: (1) Gangrene of left foot Status: Acute (2) Gangrene of toe of left foot Status: Acute Review of Systems Constitutional: No fever, No chills Cardiac: No chest pain Abdomen: No pain, No nausea Musculoskeletal: + joint pain (left fifth toe) Heme: No abnormal bleeding/bruising Skin: No rash Objective Vital Signs Last Vital Signs Documentation Date Time Temp Pulse Resp B/P (MAP) Pulse Ox O2 Delivery O2 Flow Rate FiO2 12/17/17 08:00 Room Air 12/17/17 07:12 37.1 98 18 132/81 (98) 96 Physical Exam: General Appearance: no apparent distress Respiratory/Chest: normal breath sounds, no respiratory distress Cardiovascular: regular rate, rhythm Abdomen: non tender, soft Extremities: non-tender, no pedal edema, + pertinent finding (L knee is swollen and diffusely TTP) Neurologic/Psychiatric: alert, normal mood/affect, oriented x 3 Skin: normal color, warm/dry Assessment and Plan 1. Left lower extremity diabetic foot ulceration, gangrenous fifth digit, suspected osteomyelitis. 2. Peripheral arterial disease--occluded distal SFA, likely DREW disease 3. Insulin-dependent diabetes. 4. Hypertension. 5. Ongoing tobacco use. 6. Prior deep venous thrombosis--anticoagulation on hold 7. Dyslipidemia Reviewed images from CTA from yesterday. Patient with short-segment occlusion in distal SFA and likely severe left DREW disease Recommend proceeding bilateral lower extremity angiogram and likely endovascular intervention to distal SFA, possible DREW Discussed procedure, risks, benefits, alternatives with patient and he is willing to proceed. Plan for procedure tomorrow morning Keep patient NPO past midnight, gentle IV fluids overnight, continue to hold Coumadin. Start low-dose aspirin, can discontinue Pletal. No other changes antihypertensives/statin Continued [facility] stay due to: multiple IV medications needed Discharge planning: other Medications: Current Inpatient Medications Medications (Trade) Dose Ordered Sig/Ivelisse Route Start Time Stop Time Status Last Admin Dose Admin Insulin Aspart (novoLOG ASPART) SLIDING SCALE If C... ACHS SC 12/14/17 16:00 01/13/18 15:59 12/17/17 11:46 2 UNITS Glucose (Glucose 40% Gel) 15-30 GRAMS 15 GRAMS... UD PRN PO 12/14/17 15:45 01/13/18 15:44 Glucose (Glucose Chew Tab) 4-8 Tablets 4 Tabl... UD PRN PO 12/14/17 15:45 01/13/18 15:44 Dextrose (Dextrose 50% 50ML Syringe) 25-50ML OF 50% DW IV FOR... UD PRN IV 12/14/17 15:45 01/13/18 15:44 12/16/17 03:25 25 ML Glucagon (Glucagon Inj) 1 mg UD PRN SQ 12/14/17 15:45 01/13/18 15:44 Miscellaneous Information (Consult) 1 ea UD PRN N/A 12/14/17 16:15 01/13/18 16:14 Miscellaneous Information (Consult) 1 ea UD PRN N/A 12/14/17 16:15 01/13/18 16:14 Cilostazol (Pletal Tab) 100 mg BID PO 12/14/17 20:00 01/13/18 20:59 12/17/17 07:26 100 MG Hydrochlorothiazide (Hydrochlorothiazide Tab) 25 mg QAM PO 12/15/17 08:00 01/14/18 08:59 12/17/17 07:26 25 MG Irbesartan (Avapro Tab) 150 mg DAILY PO 12/15/17 08:00 01/14/18 08:59 12/17/17 07:26 150 MG Nortriptyline HCl (Pamelor Cap) 25 mg HS PO 12/14/17 21:00 01/13/18 20:59 12/16/17 21:00 25 MG Rosuvastatin Calcium (Crestor Tab) 40 mg DAILY PO 12/15/17 08:00 01/14/18 08:59 12/17/17 07:26 40 MG Warfarin Sodium (Coumadin Tab) 10 mg HS PO 12/14/17 22:00 01/13/18 21:59 Future Hold 12/15/17 21:41 10 MG Miscellaneous Information (Order Awaiting Action) 1 ea QS N/A 12/15/17 00:00 5/1/18 00:00 Insulin Human Isoph/Insulin Regular (humuLIN 70/30) 25 units QDB SC 12/15/17 08:00 01/14/18 07:59 12/17/17 08:02 25 UNITS Insulin Human Isoph/Insulin Regular (humuLIN 70/30) 30 units QDD SC 12/14/17 18:30 01/13/18 18:29 12/16/17 18:34 30 UNITS Oxycodone HCl (Roxicodone Immediate Rel Tab) 5 mg Q4H PRN PO 12/14/17 18:45 12/28/17 18:44 12/16/17 18:37 5 MG Oxycodone HCl (Roxicodone Immediate Rel Tab) 10 mg Q4H PRN PO 12/14/17 18:45 12/28/17 18:44 12/16/17 13:52 10 MG Piperacillin Sod/ Tazobactam Sod 3.375 gm/Dextrose 115 ml @ 28.75 mls/ hr Q8H IV 12/14/17 22:00 12/24/17 21:59 12/17/17 06:04 28.75 MLS/HR Vancomycin HCl 1250 mg/Sodium Chloride 275 ml @ 125 mls/hr Q10H IV 12/15/17 06:00 12/24/17 05:59 12/17/17 07:25 125 MLS/HR Ioversol (Optiray 320) 125 ml UD PRN IV 12/16/17 08:15 12/20/17 08:14 Magnesium Hydroxide (Milk Of Magnesia Susp) 30 ml DAILY PO 12/18/17 08:00 01/17/18 07:59 Senna (Senokot Tab) 8.6 mg QAM PO 12/18/17 08:00 01/17/18 07:59 Lab Results: 12/17/17 06:33 Test 12/16/17 20:18 12/17/17 06:33 Bedside Glucose 197 mg/dl (70-99) Prothrombin Time 16.7 SECONDS (9.0-12.0) Prothromb Time International Ratio 1.6 (0.9-1.1) Est Creatinine Clear Calc Drug Dose 80.2 ml/min Estimated GFR () 86.6 Estimated GFR (Non- 74.7
[2017-12-17] MEDS: OXYCODONE HCL IR 5 MG TAB (IMMEDIATE RELEASE) PO PRN ×2 (13:55→21:47)
[2017-12-17 14:51] VITALS: BP 129/80; PULSE 100; TEMP 37.1; O2SAT 93
[2017-12-17 16:00] VITALS: O2SAT 95
[2017-12-17] MEDS: NORTRIPTYLINE HCL 25 MG CAP PO SCH (21:03)
[2017-12-17 23:26] VITALS: BP 128/75; PULSE 21; TEMP 37.3; O2SAT 100
[2017-12-17 23:59] VITALS: O2SAT 100
[2017-12-18] VITALS (9 sets, daily range): BP systolic 121–175; BP diastolic 69–92; PULSE 101–117; TEMP 36.5–36.9; O2SAT 91–100
[2017-12-18] MEDS ORDERED: VANCOMYCIN TROUGH ONE (03:30)
[2017-12-18 03:33] LABS: INR 1.2 (0.9-1.1)
[2017-12-18 03:43] LABS: CREATININE 1.16 mg/dl (0.60-1.40)
[2017-12-18] MEDS: VANCOMYCIN IV 1,250 MG in SODIUM CHLORIDE 0.9% 250ML 250 ML IV SCH ×2 (04:56→15:56)
[2017-12-18] MEDS: PIPERACILL/TAZOBAC IV 3.375 GM in DEXTROSE 5% 100ML IV SCH ×3 (06:19→21:10)
[2017-12-18] MEDS: INSULIN ASPART 100 UNITS/ML 3 ML PEN SC SCH ×4 (06:30→21:07)
[2017-12-18] MEDS ORDERED: NITROGLYCERIN/D5W 100MCG/ML 20ML SYR ONE (07:39)
--- NOTE | 2017-12-18 07:43 | Cardiology Follow-Up ---
Subjective Subjective Date of Service: Dec 18, 2017. Pt evaluation today including: conversation w/ patient, physical exam, chart review, lab review, review of studies, review of inpatient medication list Additional Details: Feeling well. Ready to proceed with procedure. Problem List Medical Problems: (1) Gangrene of left foot Status: Acute (2) Gangrene of toe of left foot Status: Acute Review of Systems Constitutional: No fever, No chills Cardiac: No chest pain Abdomen: No pain, No nausea Musculoskeletal: + joint pain (left fifth toe) Heme: No abnormal bleeding/bruising Skin: No rash Objective Vital Signs Last Vital Signs Documentation Date Time Temp Pulse Resp B/P (MAP) Pulse Ox O2 Delivery O2 Flow Rate FiO2 12/18/17 06:50 36.8 101 19 175/75 (108) 95 Room Air Physical Exam: General Appearance: no apparent distress Respiratory/Chest: normal breath sounds, no respiratory distress Cardiovascular: regular rate, rhythm Abdomen: non tender, soft Extremities: non-tender, no pedal edema, + pertinent finding (L knee is swollen and diffusely TTP) Neurologic/Psychiatric: alert, normal mood/affect, oriented x 3 Skin: normal color, warm/dry Assessment and Plan 1. Left lower extremity diabetic foot ulceration, gangrenous fifth digit, suspected osteomyelitis. 2. Peripheral arterial disease--occluded distal SFA, likely DREW disease 3. Insulin-dependent diabetes. 4. Hypertension. 5. Ongoing tobacco use. 6. Prior deep venous thrombosis--anticoagulation on hold 7. Dyslipidemia Proceed with bilateral LE angiogram and likely intervention to left SFA +/- DREW. Further recommendations pending findings. Continued [facility] stay due to: multiple IV medications needed Discharge planning: other Medications: Current Inpatient Medications Medications (Trade) Dose Ordered Sig/Ivelisse Route Start Time Stop Time Status Last Admin Dose Admin Insulin Aspart (novoLOG ASPART) SLIDING SCALE If C... ACHS SC 12/14/17 16:00 01/13/18 15:59 12/17/17 21:45 2 UNITS Glucose (Glucose 40% Gel) 15-30 GRAMS 15 GRAMS... UD PRN PO 12/14/17 15:45 01/13/18 15:44 Glucose (Glucose Chew Tab) 4-8 Tablets 4 Tabl... UD PRN PO 12/14/17 15:45 01/13/18 15:44 Dextrose (Dextrose 50% 50ML Syringe) 25-50ML OF 50% DW IV FOR... UD PRN IV 12/14/17 15:45 01/13/18 15:44 12/16/17 03:25 25 ML Glucagon (Glucagon Inj) 1 mg UD PRN SQ 12/14/17 15:45 01/13/18 15:44 Miscellaneous Information (Consult) 1 ea UD PRN N/A 12/14/17 16:15 01/13/18 16:14 Miscellaneous Information (Consult) 1 ea UD PRN N/A 12/14/17 16:15 01/13/18 16:14 Cilostazol (Pletal Tab) 100 mg BID PO 12/14/17 20:00 01/13/18 20:59 12/17/17 21:02 100 MG Hydrochlorothiazide (Hydrochlorothiazide Tab) 25 mg QAM PO 12/15/17 08:00 01/14/18 08:59 12/17/17 07:26 25 MG Irbesartan (Avapro Tab) 150 mg DAILY PO 12/15/17 08:00 01/14/18 08:59 12/17/17 07:26 150 MG Nortriptyline HCl (Pamelor Cap) 25 mg HS PO 12/14/17 21:00 01/13/18 20:59 12/17/17 21:03 25 MG Rosuvastatin Calcium (Crestor Tab) 40 mg DAILY PO 12/15/17 08:00 01/14/18 08:59 12/17/17 07:26 40 MG Warfarin Sodium (Coumadin Tab) 10 mg HS PO 12/14/17 22:00 01/13/18 21:59 Future Hold 12/15/17 21:41 10 MG Miscellaneous Information (Order Awaiting Action) 1 ea QS N/A 12/15/17 00:00 01/14/18 00:00 Insulin Human Isoph/Insulin Regular (humuLIN 70/30) 25 units QDB SC 12/15/17 08:00 01/14/18 07:59 12/17/17 08:02 25 UNITS Insulin Human Isoph/Insulin Regular (humuLIN 70/30) 30 units QDD SC 12/14/17 18:30 01/13/18 18:29 12/17/17 18:32 30 UNITS Oxycodone HCl (Roxicodone Immediate Rel Tab) 5 mg Q4H PRN PO 12/14/17 18:45 12/28/17 18:44 12/17/17 21:47 5 MG Oxycodone HCl (Roxicodone Immediate Rel Tab) 10 mg Q4H PRN PO 12/14/17 18:45 12/28/17 18:44 12/17/17 13:55 10 MG Piperacillin Sod/ Tazobactam Sod 3.375 gm/Dextrose 115 ml @ 28.75 mls/ hr Q8H IV 12/14/17 22:00 12/24/17 21:59 12/18/17 06:19 28.75 MLS/HR Vancomycin HCl 1250 mg/Sodium Chloride 275 ml @ 125 mls/hr Q10H IV 12/15/17 06:00 12/24/17 05:59 12/18/17 04:56 125 MLS/HR Ioversol (Optiray 320) 125 ml UD PRN IV 12/16/17 08:15 12/20/17 08:14 Magnesium Hydroxide (Milk Of Magnesia Susp) 30 ml DAILY PO 12/18/17 08:00 01/17/18 07:59 Senna (Senokot Tab) 8.6 mg QAM PO 12/18/17 08:00 01/17/18 07:59 Lab Results: 12/18/17 03:14 Test 12/17/17 20:11 12/18/17 03:14 Bedside Glucose 235 mg/dl (70-99) Prothrombin Time 12.7 SECONDS (9.0-12.0) Prothromb Time International Ratio 1.2 (0.9-1.1) Est Creatinine Clear Calc Drug Dose 74.7 ml/min Estimated GFR () 79.4 Estimated GFR (Non- 68.5 Vancomycin Level Trough 20.4 mcg/ml (SEE COMMENT)
--- NOTE | 2017-12-18 07:44 | Pre Sedation Assessment ---
Pre Sedation Assessment General Date of Sedation: Dec 18, 2017. Vital Signs Past 12 Hours Date Time Temp Pulse Resp B/P (MAP) Pulse Ox O2 Delivery O2 Flow Rate FiO2 12/18/17 06:50 36.8 101 19 175/75 (108) 95 Room Air 12/17/17 23:59 100 Room Air 12/17/17 23:26 37.3 21 19 128/75 (92) 100 Room Air Review Cardiovascular: regular rate, rhythm, no edema Lungs: chest non-tender, lungs clear Pre-Sedation Airway Assessment Smoking Status: Current Every Day Smoker Hx of Sleep Apnea: Yes Hx of difficult intubation: No Short Thick Neck: Yes Thyro-mental Distance: > 3 Finger Breadths Oral Cavity: Dental Abnormalities Mallampati Classification: Class II ASA Classification: Class III NPO Status Date of Last Intake of Fluids: Dec 17, 2017 Time of Last Intake of Fluids: 2300 Date of Last Intake of Solids: Dec 17, 2017 Time of Last Intake of Solids: 2300 Procedure Planning Contraindications for Sedation: None Current Medications Reviewed: Yes Notes The planned sedation has been discussed with the patient. Informed Consent was obtained. I have identified the patient, determined the appropriateness of sedation and have assessed the patient immediately prior to the procedure. All medicine(s) and interventions are by my order.
[2017-12-18] MEDS ORDERED: MIDAZOLAM HCL 1 MG/ML 2ML VIAL ONE ×2 (07:45→09:16)
[2017-12-18] MEDS ORDERED: HEPARIN SOD (PORCINE) 1000 UNIT/ML 10 ML VIAL ONE (07:45)
[2017-12-18] MEDS ORDERED: FENTANYL CITRATE INJ 50 MCG/1 ML 2 ML VIAL ONE ×2 (07:45→09:16)
[2017-12-18] MEDS: MAGNESIUM HYDROXIDE SUSP 30 ML UDC PO SCH (08:00)
[2017-12-18] MEDS ORDERED: HydrALAZINE HCL 20 MG/ML VIAL IV. ONE (08:55)
[2017-12-18] MEDS: HydrALAZINE HCL 20 MG/ML VIAL ONE (08:56)
[2017-12-18] MEDS ORDERED: NiCARDipine HCL INJ 2.5 MG/ML 10 ML AMP ONE (09:13)
[2017-12-18] MEDS ORDERED: NITROGLYCERIN 5 MG/ML 10 ML VIAL ONE (09:13)
[2017-12-18] MEDS ORDERED: HEPARIN SOD (PORCINE) 1000 UNIT/ML 10 ML VIAL IV ONE (10:10)
[2017-12-18] MEDS ORDERED: NITROGLYCERIN 5 MG/ML 10 ML VIAL IART ONE (10:10)
[2017-12-18] MEDS ORDERED: MIDAZOLAM HCL 1 MG/ML 2ML VIAL IV ONE (10:10)
[2017-12-18] MEDS ORDERED: LIDOCAINE HCL 1% 20 ML VIAL SQ ONE (10:10)
[2017-12-18] MEDS ORDERED: IODIXANOL (VISIPAQUE) 270 MG/ML 150ML IV ONE (10:10)
[2017-12-18] MEDS ORDERED: FENTANYL CITRATE INJ 50 MCG/1 ML 2 ML VIAL IV ONE ×2 (10:10→10:26)
--- NOTE | 2017-12-18 10:49 | Post Sedation Assessment ---
Post Sedation Assessment General Date of Sedation Dec 18, 2017. Vital Signs: Vital Signs Past 12 Hours Date Time Temp Pulse Resp B/P (MAP) Pulse Ox O2 Delivery O2 Flow Rate FiO2 12/18/17 10:29 121 18 112/73 100 Room Air 12/18/17 10:24 122 18 112/72 100 Room Air 12/18/17 10:19 123 16 107/69 100 Room Air 12/18/17 10:14 125 16 106/73 100 Room Air 12/18/17 10:09 125 16 148/72 100 Room Air 12/18/17 10:05 125 16 100 Oxymask 4 12/18/17 10:00 123 16 100 Oxymask 4 12/18/17 09:55 122 16 100 Oxymask 4 12/18/17 09:50 127 16 99 Oxymask 4 12/18/17 09:45 126 16 100 Oxymask 4 12/18/17 09:40 126 16 100 Oxymask 4 12/18/17 09:35 125 12 100 Oxymask 4 12/18/17 09:30 122 16 100 Oxymask 4 12/18/17 09:25 125 16 100 Oxymask 4 12/18/17 09:20 122 16 100 Oxymask 4 12/18/17 09:15 122 16 100 Oxymask 4 12/18/17 09:10 120 16 100 Oxymask 4 12/18/17 09:05 119 16 100 Oxymask 4 12/18/17 09:00 118 16 100 Oxymask 4 12/18/17 08:55 113 16 100 Oxymask 4 12/18/17 08:50 116 14 100 Oxymask 4 12/18/17 08:45 117 20 100 Oxymask 4 12/18/17 08:40 111 14 100 Oxymask 4 12/18/17 08:35 106 16 100 Oxymask 4 12/18/17 08:30 108 20 100 Oxymask 4 12/18/17 08:25 113 15 162/89 100 Room Air 4 12/18/17 08:00 Room Air 12/18/17 06:50 36.8 101 19 175/75 (108) 95 Room Air 12/17/17 23:59 100 Room Air 12/17/17 23:26 37.3 21 19 128/75 (92) 100 Room Air Post Procedure Recovery Score Activity: (2) Moves 4 extremities * Respiration: (2) Deep breath/cough Circulation: (2) +/-20% PreAnes Value Consciousness: (2) Fully Awake Oxygen Saturation: (2) > 92% On Room Air Post Anesthesia Score: 10 Discharge Sedation Level of Care: Fast Track Phase II Post Sedation Plan On clinical assessment, the patient appears to have tolerated the sedation without complications. Patient is recovering as anticipated. Patient will continue to be monitored by nursing and may be discharged when sedation discharge criteria are met per below protocol. Upon Completions of procedure and additional 15 minutes continue every 5 minute vital signs and the P.A.R. score; then discharge to a Phase I or Fast Track to Phase II per the following guidelines: * Discharge Patient to appropriate Phase II area if PAR is 8 or greater or return to pre- procedure baseline. The post - procedure orders will be as directed. * If PAR score is less than 8 or not return to pre-procedure baseline then patient will follow Phase I monitoring till PAR is reached for Phase II. The Phase I may be done in procedure room or may call to secure a Phase I area. * If naloxone or flumazenil are used for reversal, hold in Phase I for an additional 60 -120 minutes before discharge to Phase II. Please call the Sedation Physician to re-evaluate and complete post-note for discharge to Phase II area. Do NOT discharge from procedure sedation or Phase 1 until post- sedation evaluation note is complete by procedure /sedation MD Sedation Discharge Instructions to be given to the patient at discharge to home.
[2017-12-18] MEDS ORDERED: CLOPIDOGREL BISULFATE 300 MG TAB PO STA (10:50)
[2017-12-18] MEDS ORDERED: SODIUM CHLORIDE 0.9% 1000ML 1,000 ML IV SCH (10:50)
--- NOTE | 2017-12-18 10:50 | [facility] Operative Report ---
Operative Report Operative Date Dec 18, 2017. Pre-Operative Diagnosis Peripheral arterial disease Post-Operative Diagnosis Peripheral arterial disease Procedure(s) Performed Bilateral Lower Extremity Angiogram Percutaneous Transluminal Angioplasty of Superficial Femoral Artery Mechanical Closure of Right Femoral Artery Moderate Sedation [id number] Surgeon Andrea Associate Director Of Development Surgeon(s) None Estimated Blood Loss 23 Specimens None Drains None Anesthesia Type IV Sedat Cons RN Only Complication(s) none Disposition PCU Description of Procedure Left lower extremity: Common iliac - Minimal disease External iliac - Minimal disease Internal iliac - Minimal disease DESIZING MACHINE OFFBEARER - Minimal disease Profunda - Minimal disease SFA - Mild diffuse atherosclerosis Distal SFA - moderately calcified with ~ 10 cm complete occlusion Popliteal - reconstitutes via collaterals, mild disease TPT - minimal disease AT - Occluded in mid segment PT - Occluded proximally Peroneal - minimal disease PT at the level of the foot reconstitutes, pedal loop occluded Right lower extremity: Common iliac - Minimal disease External iliac - Minimal disease Internal iliac - Minimal disease DESIZING MACHINE OFFBEARER - Minimal disease, OK for closure device placement Profunda - Minimal disease SFA - Mild diffuse atherosclerosis Popliteal - mild to moderate atherosclerosis TPT - minimal disease AT - moderate diffuse disease PT - occluded proximally Peroneal - moderate diffuse disease Access of right DESIZING MACHINE OFFBEARER with 5Fr sheath Up and over with with rim catheter. Selective angiogram via DESIZING MACHINE OFFBEARER with glide-catheter Distal SFA lesion crossed with glideadvantage wire and glide catheter Attempted to wire into distal AT with 0.14 command wire/trailblazer but unable to pass distal calcification Distal SFA expanded with 4.0 and 5.0 balloons. Distal SFA treated with 5.0 x 120 Metronic BARBARA Post angioplasty no dissections and SFA well-expanded. Straight inline flow via peroneal to ankle, limited collaterals in the foot. Contrast used: 135 cc. Mynx right groin. Post deployment apparent hematoma with drop in BP - 20 minutes manual hemostasis. Summary: 1. Left lower extremity with occluded distal SFA and single vessel distal runoff (occluded PT/AT). 2. Right lower extremity with mild to moderate distal SFA/popliteal disease and two vessel distal runoff with occluded PT. 3. Successful DIRECTOR CAREER with drug-eluting balloon to left distal SFA artery Recommendations: - Patient now with brisk in-line flow to the ankle. Pedal vessel remains severely diseased with limited collaterals likely impairing distal wound healing. I attest to the content of the Intraoperative Record and any orders documented therein. Any exceptions are noted below.
[2017-12-18] MEDS: ROSUVASTATIN CALCIUM 20 MG TAB PO SCH (10:57)
[2017-12-18] MEDS: SENNA 8.6 MG TAB PO SCH (10:57)
[2017-12-18] MEDS: CILOSTAZOL 100 MG TAB PO SCH ×2 (10:57→19:40)
[2017-12-18] MEDS: HYDROCHLOROTHIAZIDE 25 MG TAB PO SCH (10:57)
[2017-12-18] MEDS: IRBESARTAN 150 MG TAB PO SCH (10:57)
[2017-12-18] MEDS ORDERED: ACETAMINOPHEN 325 MG TAB PO PRN (11:00)
[2017-12-18] MEDS: INS REG SC SCH ×2 (11:33→17:34)
[2017-12-18] MEDS: INS HUMAN ISOPH SC SCH ×2 (11:33→17:34)
--- NOTE | 2017-12-18 11:33 | DIAGNOSTIC IMAGING REPORT ---
L KNEE 1 OR 2 VIEWS ROUTINE CLINICAL HISTORY: Evaluate for pseudogout. COMPARISON: None FINDINGS: There is a moderate-sized left knee joint effusion. No fracture or suspicious lesion is present. There is marked lateral compartment joint space narrowing with moderate to severe patellofemoral joint space narrowing and mild medial compartment joint space narrowing. There is chondrocalcinosis within the menisci. Extensive vascular calcification is present. IMPRESSION: 1. No acute fracture. 2. Moderate-sized left knee joint effusion. 3. Severe lateral compartment joint space narrowing and moderate to severe patellofemoral compartment joint space narrowing. Chondrocalcinosis within the menisci. The findings may reflect CPPD arthropathy or severe osteoarthritis. Electronically signed by: Antonino Montero M.D. 12/18/2017 11:32 AM Dictated Date/Time: 12/18/2017 11:30 AM
[2017-12-18] MEDS: LACTOBACILLUS ACIDOPHILUS (FLORANEX) TAB PO SCH ×2 (11:48→17:30)
[2017-12-18] MEDS: DICLOFENAC SOD 1% GEL 100 GM TUBE EXT SCH ×2 (11:49→17:36)
--- NOTE | 2017-12-18 19:02 | Progress Note ---
Subjective Date of Service: Dec 18, 2017. Subjective Pt evaluation today including: conversation w/ patient, physical exam, chart review, lab review, review of studies (a-gram by Dr. Mendez, left knee x-rays), conversation w/ organization development consultant (orthopedics), review of inpatient medication list Pain: left knee - started sometime last night PO Intake: just returned from OR - had been NPO Voiding: no voiding problems pt's main complaint is that of left knee pain when asked if he has ever had gout he states no Problem List Medical Problems: (1) Gangrene of left foot Status: Acute (2) Gangrene of toe of left foot Status: Acute Review of Systems Constitutional: No fever Respiratory: No shortness of breath Cardiac: No chest pain Abdomen: No pain Objective Vital Signs Date Time Temp Pulse Resp B/P (MAP) Pulse Ox O2 Delivery O2 Flow Rate FiO2 12/18/17 14:39 36.6 114 18 168/92 (117) 97 Room Air 12/18/17 13:30 36.5 117 18 121/85 (97) 96 Room Air 12/18/17 12:30 36.8 114 20 139/80 (99) 94 12/18/17 11:57 36.9 115 18 152/89 (110) 100 12/18/17 11:26 36.9 111 18 159/84 (109) 93 Room Air 12/18/17 11:08 36.8 115 18 158/80 (106) 91 Room Air 12/18/17 10:50 36.9 115 18 142/69 (93) 99 Room Air 12/18/17 10:29 121 18 112/73 100 Room Air 12/18/17 10:24 122 18 112/72 100 Room Air 12/18/17 10:19 123 16 107/69 100 Room Air 12/18/17 10:14 125 16 106/73 100 Room Air 12/18/17 10:09 125 16 148/72 100 Room Air 12/18/17 10:05 125 16 100 Oxymask 4 12/18/17 10:00 123 16 100 Oxymask 4 12/18/17 09:55 122 16 100 Oxymask 4 12/18/17 09:50 127 16 99 Oxymask 4 12/18/17 09:45 126 16 100 Oxymask 4 12/18/17 09:40 126 16 100 Oxymask 4 12/18/17 09:35 125 12 100 Oxymask 4 12/18/17 09:30 122 16 100 Oxymask 4 12/18/17 09:25 125 16 100 Oxymask 4 12/18/17 09:20 122 16 100 Oxymask 4 12/18/17 09:15 122 16 100 Oxymask 4 12/18/17 09:10 120 16 100 Oxymask 4 12/18/17 09:05 119 16 100 Oxymask 4 12/18/17 09:00 118 16 100 Oxymask 4 12/18/17 08:55 113 16 100 Oxymask 4 12/18/17 08:50 116 14 100 Oxymask 4 12/18/17 08:45 117 20 100 Oxymask 4 12/18/17 08:40 111 14 100 Oxymask 4 12/18/17 08:35 106 16 100 Oxymask 4 12/18/17 08:30 108 20 100 Oxymask 4 12/18/17 08:25 113 15 162/89 100 Room Air 4 12/18/17 08:00 Room Air 12/18/17 06:50 36.8 101 19 175/75 (108) 95 Room Air 12/17/17 23:59 100 Room Air 12/17/17 23:26 37.3 21 19 128/75 (92) 100 Room Air Physical Exam General Appearance: no apparent distress ENT: pharynx normal Neck: no JVD Respiratory/Chest: lungs clear, no respiratory distress, no accessory muscle use Cardiovascular: no gallop, no murmur, + tachycardia, + pertinent finding ( pulses, both feet - <1+ DP and pos tib pulses b/l; popliteal pulses about 1+ b/ l ) Abdomen: normal bowel sounds, non tender, soft, no organomegaly Extremities: no pedal edema, + pertinent finding (left knee - mild-mod effusion present; minimally warm; tender to palpation and with passive ROM) Neurologic/Psychiatric: alert, + disoriented (mildly confused) Skin: + pertinent finding (severe xerosis of both feet and all toes; left 5th toe with black color and very foul odor with tenderness to palpation; left 2nd toe also black in color and tender to palpation; no open ulcers) Laboratory Results Last 24 Hours Test 12/17/17 20:11 12/18/17 03:14 12/18/17 07:17 12/18/17 08:06 Bedside Glucose 235 mg/dl 94 mg/dl Prothrombin Time 12.7 SECONDS Prothromb Time International Ratio 1.2 Creatinine 1.16 mg/dl Est Creatinine Clear Calc Drug Dose 74.7 ml/min Estimated GFR () 79.4 Estimated GFR (Non- 68.5 Vancomycin Level Trough 20.4 mcg/ml Kaolin Activated Coagulation Time 285 SECONDS Test 12/18/17 11:11 12/18/17 16:06 Bedside Glucose 161 mg/dl 118 mg/dl Assessment and Plan 57yo male - 1. gangrene left 5th toe with concern of osteomyelitis - to OR on Saturday with Dr. Garcia - either will have amputation of toe vs TMA vs BKA (worst case scenario). Continue current IV antibiotics. I am concerned now about viability of left 2nd toe as well given the appearance today. 2. PAD s/p LE arteriogram today by Dr. Mendez - s/p left SFA angioplasty with stent. Loaded with plavix, and will take plavix 75mg daily. Check lipids in am; cont statin in meantime. Despite work on the left SFA today he has poor blood flow to the foot given small vessel PAD. Ortho aware. 3. left knee pain with joint effusion - has CPPD changes on x-rays today and thus this may represent pseudogout; gout also possible given his HCTZ use. Start with voltaren gel. Poor candidate for NSAIDs in light of arteriogram today. Poor candidate for steroids as well. Consider arthrocentesis and injection. Check uric acid level in am. 4. HTN - continue outpatient meds. 5. ?delirium - 2nd to #1 if truly present. Follow. 6. COPD - from tobacco dependence. 7. T2DM - on 70/30 insulin. While hospitalized will convert to lantus/ novolog. Start this tomorrow AM. Start lantus 12 units BID in the AM; novolog - correction factor 30, carb ratio 1:10. 8. h/o DVT, LLE, 2009 (based on records) - on chronic coumadin. Coumadin held for procedure today. Since he will have surgery Saturday will start SC heparin tomorrow for DVT proph. 9. tachycardia - suspect SIRS from #1. Check TSH to be complete in the AM. 10. hyperlipidemia - check lipid profile in am. 11. ?history of CAD - noted. 12. tobacco dependence - pre parole counseling aide to quit. Continued [facility] stay due to: multiple IV medications needed Discharge planning: other (snf )
[2017-12-18] MEDS: OXYCODONE HCL IR 5 MG TAB (IMMEDIATE RELEASE) PO PRN (19:40)
[2017-12-18] MEDS: NORTRIPTYLINE HCL 25 MG CAP PO SCH (21:08)
[2017-12-19] MEDS: DICLOFENAC SOD 1% GEL 100 GM TUBE EXT SCH ×4 (00:21→17:53)
[2017-12-19 00:29] VITALS: BP 154/73; PULSE 80; TEMP 36.7; O2SAT 99
[2017-12-19] MEDS: VANCOMYCIN IV 1,250 MG in SODIUM CHLORIDE 0.9% 250ML 250 ML IV SCH ×2 (05:00→16:46)
[2017-12-19] MEDS: PIPERACILL/TAZOBAC IV 3.375 GM in DEXTROSE 5% 100ML IV SCH ×3 (05:50→21:10)
[2017-12-19 06:58] LABS: HEMATOCRIT 35.6 % (42-52); HEMOGLOBIN 12.4 g/dL (14.0-18.0); MEAN CORPUSCULAR HGB CONC 34.8 g/dl (32-36); MEAN PLATELET VOLUME 9.2 fL (7.4-10.4); PLATELET COUNT 183 K/uL (130-400); WHITE BLOOD COUNT 9.22 K/uL (4.8-10.8)
[2017-12-19 07:10] LABS: INR 1.1 (0.9-1.1)
[2017-12-19 07:15] VITALS: BP 168/81; PULSE 98; TEMP 36.6; O2SAT 95
[2017-12-19 07:26] LABS: CREATININE 1.02 mg/dl (0.60-1.40); POTASSIUM 3.5 mmol/L (3.5-5.1); URIC ACID 3.2 mg/dl (2.6-7.2)
--- NOTE | 2017-12-19 07:57 | Orthopedic Progress Note ---
Orthopedic Progress Note Date of Service Dec 19, 2017. Subjective Reports: feeling well, Denies: complaints, chest pain, SOB, nausea / vomiting, light headedness Additional Notes: S/P revascularization by Dr Mendez yesterday. No increased pain in LE. Objective calves soft nontender, A&O x3 left 5th toe gangrene with foul odor. Devitalized skin and nail 5th. 1st and 2nd toe with superficial ulceration. No change in pedal pulses compared to previous exam. Feet warm to touch. Date Time Temp Pulse Resp B/P (MAP) Pulse Ox O2 Delivery O2 Flow Rate FiO2 12/19/17 07:15 36.6 98 18 168/81 (110) 95 Room Air 12/19/17 00:29 36.7 80 20 154/73 (100) 99 Room Air 12/19/17 00:00 Room Air 12/18/17 16:00 97 Room Air 12/18/17 14:39 36.6 114 18 168/92 (117) 97 Room Air 12/18/17 13:30 36.5 117 18 121/85 (97) 96 Room Air 12/18/17 12:30 36.8 114 20 139/80 (99) 94 12/18/17 11:57 36.9 115 18 152/89 (110) 100 12/18/17 11:26 36.9 111 18 159/84 (109) 93 Room Air 12/18/17 11:08 36.8 115 18 158/80 (106) 91 Room Air 12/18/17 10:50 36.9 115 18 142/69 (93) 99 Room Air 12/18/17 10:29 121 18 112/73 100 Room Air 12/18/17 10:24 122 18 112/72 100 Room Air 12/18/17 10:19 123 16 107/69 100 Room Air 12/18/17 10:14 125 16 106/73 100 Room Air 12/18/17 10:09 125 16 148/72 100 Room Air 12/18/17 10:05 125 16 100 Oxymask 4 12/18/17 10:00 123 16 100 Oxymask 4 12/18/17 09:55 122 16 100 Oxymask 4 12/18/17 09:50 127 16 99 Oxymask 4 12/18/17 09:45 126 16 100 Oxymask 4 12/18/17 09:40 126 16 100 Oxymask 4 12/18/17 09:35 125 12 100 Oxymask 4 12/18/17 09:30 122 16 100 Oxymask 4 12/18/17 09:25 125 16 100 Oxymask 4 12/18/17 09:20 122 16 100 Oxymask 4 12/18/17 09:15 122 16 100 Oxymask 4 12/18/17 09:10 120 16 100 Oxymask 4 12/18/17 09:05 119 16 100 Oxymask 4 12/18/17 09:00 118 16 100 Oxymask 4 12/18/17 08:55 113 16 100 Oxymask 4 12/18/17 08:50 116 14 100 Oxymask 4 12/18/17 08:45 117 20 100 Oxymask 4 12/18/17 08:40 111 14 100 Oxymask 4 12/18/17 08:35 106 16 100 Oxymask 4 12/18/17 08:30 108 20 100 Oxymask 4 12/18/17 08:25 113 15 162/89 100 Room Air 4 12/18/17 08:00 Room Air Laboratory Results 24 Hours: Test 12/19/17 06:32 Hematocrit 35.6 % Hemoglobin 12.4 g/dL Prothromb Time International Ratio 1.1 Prothrombin Time 11.3 SECONDS Assessment & Plan Assessment: Left 5th toe gangrene 1st and 2nd toe superficial ulcerations B LE stocking neuropathy PVD S/P revascularization L LE 12/18/17 Plan: NPO after midnight To OR for amputation left 5th toe tomorrow Hold Plavix
[2017-12-19 08:00] VITALS: O2SAT 95
[2017-12-19] MEDS: MAGNESIUM HYDROXIDE SUSP 30 ML UDC PO SCH (08:00)
[2017-12-19] MEDS: ROSUVASTATIN CALCIUM 20 MG TAB PO SCH (08:45)
[2017-12-19] MEDS: HYDROCHLOROTHIAZIDE 25 MG TAB PO SCH (08:46)
[2017-12-19] MEDS: LACTOBACILLUS ACIDOPHILUS (FLORANEX) TAB PO SCH ×3 (08:46→16:52)
[2017-12-19] MEDS: CILOSTAZOL 100 MG TAB PO SCH ×2 (08:46→21:09)
[2017-12-19] MEDS: IRBESARTAN 150 MG TAB PO SCH (08:47)
[2017-12-19] MEDS: SENNA 8.6 MG TAB PO SCH (08:47)
[2017-12-19] MEDS: INSULIN ASPART 100 UNITS/ML 3 ML PEN SC SCH ×4 (08:53→21:03)
[2017-12-19] MEDS: OXYCODONE HCL IR 5 MG TAB (IMMEDIATE RELEASE) PO PRN ×3 (08:55→21:10)
[2017-12-19] MEDS ORDERED: CLOPIDOGREL BISULFATE 75 MG TAB PO SCH (09:00)
[2017-12-19] MEDS: INSULIN GLARGINE SOLOSTAR 100 UNITS/ML 3 ML PEN SC SCH ×2 (11:19→21:04)
[2017-12-19 15:59] VITALS: BP 112/66; PULSE 88; TEMP 36.8; O2SAT 94
[2017-12-19 16:00] VITALS: O2SAT 94
[2017-12-19] MEDS ORDERED: BISACODYL 10 MG SUPP PR PRN (17:30)
[2017-12-19] MEDS ORDERED: BISACODYL 5 MG TABEC PO ONE (17:30)
--- NOTE | 2017-12-19 17:33 | Progress Note ---
Progress Note Date of Service Dec 19, 2017. 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 Garcia tomorrow. PMH includes COPD, QUENTIN, tobacco abuse, HTN, h/o DVT on plavix and coumadin, PAD/PVD, DM II on insulin. Has been followed by Dr. Mendez for his PAD s/p L SFA on 12/18/17. Anesthesia plan including risks were explained to patient and consent was signed. Pt was advised to be NPO after midnight except for sips of water with meds on DOS.
[2017-12-19] MEDS: NORTRIPTYLINE HCL 25 MG CAP PO SCH (21:09)
[2017-12-19 23:52] VITALS: BP 171/74; PULSE 86; TEMP 36.9; O2SAT 92
--- NOTE | 2017-12-20 00:06 | Progress Note ---
Subjective Date of Service: Dec 19, 2017. Subjective Pt evaluation today including: conversation w/ patient, physical exam, chart review, lab review Pain: left foot - mild PO Intake: normal - eating well Voiding: no voiding problems no events overnight c/o constipation denies any cp, dyspnea, abd pain, diarrhea left knee feels better w/ use of voltaren gel Problem List Medical Problems: (1) Gangrene of left foot Status: Acute (2) Gangrene of toe of left foot Status: Acute Review of Systems Constitutional: No fever Respiratory: No cough, No shortness of breath Cardiac: No chest pain Abdomen: No pain Objective Vital Signs Date Time Temp Pulse Resp B/P (MAP) Pulse Ox O2 Delivery O2 Flow Rate FiO2 12/19/17 16:00 94 Room Air 12/19/17 15:59 36.8 88 20 112/66 (81) 94 Room Air 12/19/17 08:00 95 Room Air 12/19/17 07:15 36.6 98 18 168/81 (110) 95 Room Air 12/19/17 00:29 36.7 80 20 154/73 (100) 99 Room Air 12/19/17 00:00 Room Air Physical Exam General Appearance: no apparent distress ENT: pharynx normal Neck: no JVD Respiratory/Chest: lungs clear, no respiratory distress, no accessory muscle use Cardiovascular: regular rate, rhythm, no gallop, no murmur, + pertinent finding (pulses both feet <1+ b/l -- a little worse on left ) Abdomen: normal bowel sounds, non tender, soft, no organomegaly Extremities: no pedal edema, + pertinent finding (left knee effusion - mild, less tenderness with palpation and active ROM) Neurologic/Psychiatric: alert, oriented x 3 Skin: + pertinent finding (severe xerosis both feet; gangrene left 5th toe unchanged w/ foul odor; 2nd toe is cool, black in color, concerning for gangrene ) Laboratory Results Last 24 Hours Test 12/18/17 21:38 12/18/17 22:18 12/19/17 06:32 12/19/17 07:40 Bedside Glucose 53 mg/dl 103 mg/dl 118 mg/dl White Blood Count 9.22 K/uL Red Blood Count 4.14 M/uL Hemoglobin 12.4 g/dL Hematocrit 35.6 % Mean Corpuscular Volume 86.0 fL Mean Corpuscular Hemoglobin 30.0 pg Mean Corpuscular Hemoglobin Concent 34.8 g/dl RDW Standard Deviation 47.0 fL RDW Coefficient of Variation 15.0 % Platelet Count 183 K/uL Mean Platelet Volume 9.2 fL Prothrombin Time 11.3 SECONDS Prothromb Time International Ratio 1.1 Sodium Level 136 mmol/L Potassium Level 3.5 mmol/L Chloride Level 100 mmol/L Carbon Dioxide Level 30 mmol/L Anion Gap 6.0 mmol/L Blood Urea Nitrogen 18 mg/dl Creatinine 1.02 mg/dl Est Creatinine Clear Calc Drug Dose 84.9 ml/min Estimated GFR () 92.8 Estimated GFR (Non- 80.1 BUN/Creatinine Ratio 17.5 Random Glucose 78 mg/dl Uric Acid 3.2 mg/dl Calcium Level 9.0 mg/dl Magnesium Level 2.0 mg/dl Triglycerides Level 42 mg/dl Cholesterol Level 127 mg/dl HDL Cholesterol 62 mg/dl LDL Cholesterol, Calculated 57 mg/dl VLDL Cholesterol, Calculated 8 mg/dl Cholesterol/HDL Ratio 2.0 Thyroid Stimulating Hormone (TSH) 1.530 uIu/ml Test 12/19/17 11:31 12/19/17 16:42 12/19/17 20:32 Bedside Glucose 199 mg/dl 211 mg/dl 215 mg/dl Assessment and Plan 57yo male - 1. gangrene left 5th toe with concern of osteomyelitis - to OR tomorrow with Dr. Garcia - either will have amputation of toe vs TMA vs BKA (worst case scenario). Continue current IV antibiotics. I am concerned about viability of left 2nd toe as well. 2. PAD s/p LE arteriogram and left SFA angioplasty with stent by Dr. Mendez. Lipids controlled; cont statin. Resume plavix when ok with ortho. Despite work on the left SFA he has poor blood flow to the foot given small vessel PAD. Ortho aware. 3. left knee pseudogout - improved w/ voltaren gel qid. 4. HTN - continue outpatient meds. 5. ?delirium - unlikely, ruled out, mental status seems at baseline. 6. COPD - from tobacco dependence. 7. T2DM - cont lantus 12 units BID & novolog with correction factor 30, carb ratio 1:10. Adjust as needed. 8. h/o DVT, LLE, 2009 (based on records) - on chronic coumadin. Coumadin held for procedures. Resume coumadin when ok with ortho. 9. tachycardia - suspect SIRS from #1. Improved. TSH was wnl. 10. hyperlipidemia - controlled w/ statin agent. 11. ?history of CAD - noted. 12. tobacco dependence - counselor marriage and family to quit. 13. constipation - bowel regimen. NPO after WA tonight Continued [facility] stay due to: multiple IV medications needed Discharge planning: other (longterm )
[2017-12-20] MEDS: DICLOFENAC SOD 1% GEL 100 GM TUBE EXT SCH ×4 (00:25→17:30)
[2017-12-20] MEDS ORDERED: VANCOMYCIN TROUGH ONE (03:30)
[2017-12-20 04:19] LABS: CALCIUM 8.8 mg/dl (8.5-10.1); CREATININE 1.21 mg/dl (0.60-1.40); POTASSIUM 4.2 mmol/L (3.5-5.1)
[2017-12-20] MEDS: PIPERACILL/TAZOBAC IV 3.375 GM in DEXTROSE 5% 100ML IV SCH ×3 (05:28→21:48)
[2017-12-20] MEDS: VANCOMYCIN IV 1,250 MG in SODIUM CHLORIDE 0.9% 250ML 250 ML IV SCH ×2 (05:29→20:13)
[2017-12-20] MEDS: INSULIN ASPART 100 UNITS/ML 3 ML PEN SC SCH ×4 (06:29→20:33)
[2017-12-20 07:00] VITALS: BP 146/74; PULSE 92; TEMP 36.7; O2SAT 92
[2017-12-20 08:00] VITALS: O2SAT 95
[2017-12-20] MEDS: ROSUVASTATIN CALCIUM 20 MG TAB PO SCH (08:00)
[2017-12-20] MEDS: MAGNESIUM HYDROXIDE SUSP 30 ML UDC PO SCH (08:00)
[2017-12-20] MEDS: LACTOBACILLUS ACIDOPHILUS (FLORANEX) TAB PO SCH ×3 (08:00→17:28)
[2017-12-20] MEDS: SENNA 8.6 MG TAB PO SCH (08:00)
[2017-12-20] MEDS: HYDROCHLOROTHIAZIDE 25 MG TAB PO SCH (08:00)
[2017-12-20] MEDS: CILOSTAZOL 100 MG TAB PO SCH ×2 (08:00→20:14)
[2017-12-20] MEDS: IRBESARTAN 150 MG TAB PO SCH (08:00)
--- NOTE | 2017-12-20 08:20 | Pharmacy Progress Note ---
Pharmacy Antibiotic Prog Note Date of Service Dec 20, 2017. Subjective The patient is currently receiving vancomycin 1250 mg IV every 12 hours. The patient is currently on day # 7 of IV therapy. Objective Height (Feet): 5 Height (Inches): 9.00 Weight (Kilograms): 86.360 Levels: Item Value Date Time Vancomycin Level Trough 23.9 mcg/ml 12/20/17 0332 Vancomycin Level Trough 20.4 mcg/ml 12/18/17 0314 Vancomycin Level Trough 18.1 mcg/ml 12/16/17 1120 Lab Results (24hrs): Test 12/19/17 20:32 12/20/17 03:32 12/20/17 05:57 Bedside Glucose 215 mg/dl (70-99) 215 mg/dl (70-99) Sodium Level 132 mmol/L (136-145) Potassium Level 4.2 mmol/L (3.5-5.1) Chloride Level 98 mmol/L (98-107) Carbon Dioxide Level 28 mmol/L (21-32) Anion Gap 6.0 mmol/L (3-11) Blood Urea Nitrogen 22 mg/dl (7-18) Creatinine 1.21 mg/dl (0.60-1.40) Est Creatinine Clear Calc Drug Dose 71.6 ml/min Estimated GFR () 75.5 Estimated GFR (Non- 65.1 BUN/Creatinine Ratio 18.5 (10-20) Random Glucose 224 mg/dl (70-99) Calcium Level 8.8 mg/dl (8.5-10.1) Vancomycin Level Trough 23.9 mcg/ml (SEE COMMENT) Assessment & Plan Patient on vancomycin and zosyn for concern of osteomyelitis - plan to go to OR today and have possible amputation of toe or BKA. Vancomycin: * Trough level this am came back supratherapeutic at ~23 mcg/ml (goal 15-20 mcg/ ml for bone infections). Previous dose given late, would expect true trough to be slightly lower * Of note, Scr also trending up today; Scr 1.2 (CrCl ~71 ml/min) * Will adjust vancomycin regimen to 1250 mg iv q 14 hrs to target trough ~15-20 mcg/ml * Will order a trough prior to the 1400 dose on 12-22 to ensure therapeutic * Would expect abx to continue 1-2 days s/p amputation, depending on OR findings Zosyn: * 3.375 gm iv q 8 hrs; no change Pharmacy will continue to follow and will adjust dose/frequency as necessary. Thank you
[2017-12-20] MEDS: INSULIN GLARGINE SOLOSTAR 100 UNITS/ML 3 ML PEN SC SCH ×2 (08:56→20:32)
--- NOTE | 2017-12-20 09:57 | History & Physical Bridge Note ---
H&P Re-Evaluation Bridge Note: I have examined the patient, reviewed the History & Physical and in the interval since the performance of the History & Physical I have noted the following changes of clinical significance: To OR for amputation left fifth toe , irrigation and debridement left great toe and left second toe today.
[2017-12-20] MEDS ORDERED: MIDAZOLAM HCL 1 MG/ML 2ML VIAL ONE ×2 (10:22→12:04)
[2017-12-20] MEDS ORDERED: FENTANYL CITRATE INJ 50 MCG/1 ML 2 ML VIAL ONE (10:22)
[2017-12-20] MEDS ORDERED: PROPOFOL IV EMULSION 10 MG/ML 20 ML VIAL IV ONE (10:22)
[2017-12-20] MEDS ORDERED: LIDOCAINE HCL 2% 2 ML VIAL (20MG/ML) ONE (10:22)
[2017-12-20] MEDS ORDERED: BACITRACIN 50000 UNIT VIAL ONE (10:53)
[2017-12-20] MEDS ORDERED: BUPIVACAINE 0.5 % 5 MG/1 ML MPF 30ML VIAL ONE (10:53)
[2017-12-20] MEDS ORDERED: HYDROmorphone INJ 0.5 MG/0.5 ML SYR IV PRN (11:00)
[2017-12-20] MEDS ORDERED: MEPERIDINE HCL 25 MG/ML CARP IV PRN (11:00)
[2017-12-20] MEDS ORDERED: EpHEDrine SULFATE INJ 50 MG/ML AMP IV PRN (11:00)
[2017-12-20] MEDS ORDERED: FLUMAZENIL 0.1 MG/1 ML 10 ML VIAL IV PRN (11:00)
[2017-12-20] MEDS ORDERED: NALOXONE HCL 0.4 MG/1 ML VIAL/CARP IV PRN (11:00)
[2017-12-20] MEDS ORDERED: ONDANSETRON INJ 2 MG/ML 2 ML VIAL IV PRN (11:00)
[2017-12-20] MEDS ORDERED: FENTANYL CITRATE INJ 50 MCG/1 ML 2 ML VIAL IV PRN (11:00)
[2017-12-20] MEDS ORDERED: ATROPINE SULFATE 0.1 MG/ML 5ML SYR IV PRN (11:00)
[2017-12-20] MEDS ORDERED: PHENYLEPHRINE 100MCG/ML 5ML SYR IV PRN (11:00)
[2017-12-20] MEDS ORDERED: LABETALOL HCL IV 5 MG/ML 20ML IV PRN (11:00)
[2017-12-20] MEDS ORDERED: LIDOCAINE HCL 2% LOCAL 50ML VIAL ONE (11:11)
[2017-12-20] MEDS ORDERED: ESMOLOL HCL 10 MG/ML 10 ML VIAL ONE (11:52)
--- NOTE | 2017-12-20 13:02 | [facility] Post Operative Brief Note ---
Immediate Operative Summary Operative Date Dec 20, 2017. Pre-Operative Diagnosis Left 5th toe gangrene, Left 1st and 2nd toe neuropathic ulcerations, Dystrophic ingrown great toenail Post-Operative Diagnosis Left 5th toe gangrene, Left 1st and 2nd toe neuropathic ulcerations, Dystrophic ingrown great toenail, ulceration plantar 3rd and 5th metatarsal heads Procedure(s) Performed 1. Left 5th Toe amputation 2. Left fifth Metatarsal Head Amputation 3. Irrigation and Debridement of left 1st and 2nd toe neuropathic ulcerations (skin full thickness) 4. Removal of nail plate of left great toe 5. Debridement plantar ulcerations 3rd and 5th metatarsal heads (skin full thickness) Surgeon Dr Humberto Garcia Data Lead Surgeon(s) Aman Hyde PA-C Estimated Blood Loss 5ml Findings Consistent with Post-Op Diagnosis Specimens A) Left 5th toe B) Left 5th mettarsal head Drains None Anesthesia Type MAC Regional Complication(s) none Disposition Accompanied Pt To Recover: no Disposition: Recovery Room / PACU
--- NOTE | 2017-12-20 13:48 | Anesthesiology Progress Note ---
Anesthesia Post Op Note Date & Time Dec 20, 2017 at 13:48 Vital Signs Pain Intensity: 1 Vital Signs Past 12 Hours Date Time Temp Pulse Resp B/P (MAP) Pulse Ox O2 Delivery O2 Flow Rate FiO2 12/20/17 13:40 36.4 90 16 145/80 95 Room Air 12/20/17 13:25 36.4 84 16 136/78 96 Room Air 12/20/17 13:15 36.4 95 16 154/90 100 Oxymask 7 12/20/17 13:05 36.4 92 16 163/92 100 Oxymask 7 12/20/17 08:00 95 Room Air 12/20/17 07:00 36.7 92 19 146/74 (98) 92 Room Air Notes Mental Status: alert / awake / arousable, participated in evaluation Pt Amnestic to Procedure: Yes Nausea / Vomiting: adequately controlled Pain: adequately controlled Airway Patency, RR, SpO2: stable & adequate BP & HR: stable & adequate Hydration State: stable & adequate Anesthetic Complications: no major complications apparent
[2017-12-20 13:55] VITALS: BP 147/91; PULSE 88; TEMP 36.8; O2SAT 95
[2017-12-20 14:10] VITALS: O2SAT 95
[2017-12-20 14:31] VITALS: BP 150/84; PULSE 86; TEMP 36.7; O2SAT 96
--- NOTE | 2017-12-20 15:47 | OPERATIVE REPORT ---
DATE OF OPERATION: 12/20/2017 PREOPERATIVE DIAGNOSES: 1. Left foot fifth toe gangrene. 2. Ulceration of the second toe and the first toe. POSTOPERATIVE DIAGNOSES: 1. Left foot fifth toe gangrene. 2. Left foot fifth metatarsal head osteomyelitis. 3. Ulceration, second toe and first toe. 4. Ingrown dystrophic great toenail. 5. Plantar ulcerations of the third and fifth metatarsal heads. PROCEDURES: 1. Left foot fifth toe amputation. 2. Left foot fifth metatarsal head resection. 3. Irrigation and debridement of the first and second toe ulcerations including full thickness skin. 4. Removal of great toe nail plate. 5. Debridement of plantar ulcerations, third and fifth metatarsal heads, full thickness, 1 cm in diameter. SURGEON: Dr. Garcia. MARINE GEOLOGIST: Aman Hyde PA-C who was present for patient positioning, sterile prep and drape, management of retractors and instruments. He was present through the critical portions of the case including wound closure, application of sterile dressing and transport of the patient to recovery. ANESTHESIA: Ankle block with sedation. SPECIMENS: Fifth toe and fifth metatarsal head. DRAINS: None. COMPLICATIONS: None. BLOOD LOSS: 5 mL. PERTINENT HISTORY: This is a 57-year-old inmate who had developed approximately a month long history of left lower extremity pain. He was found to have a superficial femoral artery occlusion and underwent a revascularization procedure with stenting by Dr. Mendez with interventional cardiology. This was performed on Saturday and he also noted to have necrosis and gangrene of his fifth toe of the left foot as well as ulcerations of the second and first toe. The patient was then scheduled for surgery as indicated. All potential risks, benefits, complications, alternatives, rehab, potential for incomplete relief of symptoms, need for further surgery, DVT, PE, , persistent pain, swelling, scarring, weakness, neurovascular injury was discussed with the patient in addition to possible need for further amputation, particularly since the patient has poor blood flow past the trifurcation with some evidence of reconstitution, per CT angiogram. The patient decided to proceed with the procedure as indicated. DESCRIPTION OF PROCEDURE: The patient was taken to operative suite, placed supine on the operating room table and after review of the consent and identification of operative site, the patient was sedated. He had an ankle block performed by the department of anesthesia. Left lower extremity was then sterilely prepped in usual fashion, elevated and partially exsanguinated from the calcaneus proximally with a 4-inch Esmarch was then applied over sterile surgical towel at the level of the ankle for a tourniquet. Next, a 15 blade scalpel was used to sharply excise the gangrenous left fifth toe that was noted to be completely devitalized prior to surgery. Next, the toe was excised at the level of the fifth metatarsal head with circumferential release of the fifth metatarsophalangeal joint capsule with a 15 blade scalpel. The surrounding soft tissues in the plantar aspect and plantar medial aspect of the fifth toe were noted to be necrotic and foul smelling. The skin flap therefore, had to be modified and resected in accordance with the viable tissue. There was noted to be softening of the fifth metatarsal head consistent with early osteomyelitis. Noted to be devitalization of the surrounding soft tissues at the distal aspect of the fifth metatarsal; therefore, this area of osteomyelitis was then resected using a bone-biting rongeur. Next, the skin flaps were then debrided of any devitalized tissue and wound was copiously irrigated with sterile saline until clear. Next, attention was then directed toward the great toe. There was noted to be dystrophic ingrown nail of the great toe with dorsal ulceration and plantar ulceration. Next, a hemostat was then used to undermine the nail plate and then using a rolling maneuver, the great toe nail plate was then excised. This removed this dystrophic thickened nail and removed a significant pincer deformity on the germinal matrix. Next, the ulceration of the great toe dorsal and dorsomedial was then excised using a 15 blade scalpel full thickness through the skin. Next, attention was then directed toward the dorsal aspect of the left second toe and an 8 mm diameter ulceration was then sharply debrided full thickness skin with a 15 blade scalpel. There was no exposed tendon or bone. Next, attention was then directed toward the plantar aspect of the left foot, third and fifth metatarsal heads noted to be hypertrophic, ulcerations of the metatarsal heads. This 15 blade scalpel was used to debride full thickness ulcerations of the third and fifth metatarsal heads of the left foot, approximately 1 cm diameter. Next, the pulsatile lavage was then used to irrigate the foot until clear and then the foot was then dried and then next, 3-0 nylon sutures was then used to closed the tissue flap in the lateral border of the left foot loosely. There was no evidence of necrotic tissue or abscess. A sterile lightly compressive dressing was applied, consisting of Xeroform gauze, sterile 4 x 4's, ABDs and a well padded soft dressing was applied overwrapped with Donal wraps. The tourniquet was released; the patient was awakened and taken to recovery in stable condition. I attest to the content of the Intraoperative Record and any orders documented therein. Any exception s are noted below.
[2017-12-20 16:48] VITALS: BP 131/50; PULSE 88; TEMP 36.8; O2SAT 97
--- NOTE | 2017-12-20 17:23 | Cardiology Follow-Up ---
Subjective Subjective Date of Service: Dec 20, 2017. Pt evaluation today including: conversation w/ patient, physical exam, chart review, lab review, review of studies, conversation w/ sales consultant, review of inpatient medication list Additional Details: Underwent left 5th toe amputation, 5th metatarsal head resection and debridement of distal ulcerations with orthopedics today. This afternoon patient feeling well denies significant pain. No other new concerns. Problem List Medical Problems: (1) Gangrene of left foot Status: Acute (2) Gangrene of toe of left foot Status: Acute Review of Systems Constitutional: No fever Respiratory: No cough, No shortness of breath Cardiac: No chest pain Abdomen: No pain Musculoskeletal: + joint pain (left fifth toe) Heme: No abnormal bleeding/bruising Skin: No rash Objective Vital Signs Last Vital Signs Documentation Date Time Temp Pulse Resp B/P (MAP) Pulse Ox O2 Delivery O2 Flow Rate FiO2 12/20/17 16:48 36.8 88 20 131/50 (77) 97 12/20/17 16:00 Room Air 12/20/17 13:15 7 Physical Exam: General Appearance: no apparent distress ENT: pharynx normal Neck: no JVD Respiratory/Chest: lungs clear, no respiratory distress Cardiovascular: regular rate, rhythm, no gallop, no murmur, + tachycardia, + pertinent finding Abdomen: normal bowel sounds, non tender, soft Extremities: no pedal edema, + pertinent finding (Left lower extremity dressed , or proximal extremity warm; palpable DP pulses on right. Right common femoral arterial access site, no hematoma, ecchymosis, intact pulses) Neurologic/Psychiatric: alert, oriented x 3 Skin: + pertinent finding (severe xerosis both feet; gangrene left 5th toe unchanged w/ foul odor; 2nd toe is cool, black in color, concerning for gangrene ) Assessment and Plan 1. Left lower extremity diabetic foot ulceration, gangrenous fifth digit, suspected osteomyelitis--post 5th toe/metatarsal head amputation today 2. Peripheral arterial disease--occluded distal SFA, postprocedure day 2 post [employer] with drug-eluting balloon 3. Insulin-dependent diabetes. 4. Hypertension. 5. Ongoing tobacco use. 6. Prior deep venous thrombosis--anticoagulation on hold 7. Dyslipidemia Patient doing well postoperatively this afternoon. No apparent complications from endovascular intervention 2 days ago. --recommend restarting antiplatelet therapy when okay from an orthopedic standpoint --would plan on dual antiplatelet therapy with aspirin and Plavix for 1 month , then aspirin indefinitely --if planning to resume prior anticoagulation then would just do Coumadin and Plavix for 1st month and then continue on Coumadin and aspirin indefinitely --can continue cilostazol --continue current statin Vascular follow-up with repeat ultrasound in 3-4 weeks --long-term would plan on dual antiplatelet therapy for 1 month, then continue on aspirin alone Continued [facility] stay due to: multiple IV medications needed Discharge planning: other ([place] [facility] Medications: Current Inpatient Medications Medications (Trade) Dose Ordered Sig/Ivelisse Route Start Time Stop Time Status Last Admin Dose Admin Insulin Aspart (novoLOG ASPART) SLIDING SCALE If C... ACHS SC 12/14/17 16:00 01/13/18 15:59 12/20/17 06:29 2 UNITS Glucose (Glucose 40% Gel) 15-30 GRAMS 15 GRAMS... UD PRN PO 12/14/17 15:45 01/13/18 15:44 Glucose (Glucose Chew Tab) 4-8 Tablets 4 Tabl... UD PRN PO 12/14/17 15:45 01/13/18 15:44 12/18/17 21:46 8 TABS Dextrose (Dextrose 50% 50ML Syringe) 25-50ML OF 50% DW IV FOR... UD PRN IV 12/14/17 15:45 01/13/18 15:44 12/16/17 03:25 25 ML Glucagon (Glucagon Inj) 1 mg UD PRN SQ 12/14/17 15:45 01/13/18 15:44 Miscellaneous Information (Consult) 1 ea UD PRN N/A 12/14/17 16:15 01/13/18 16:14 Miscellaneous Information (Consult) 1 ea UD PRN N/A 12/14/17 16:15 01/13/18 16:14 Cilostazol (Pletal Tab) 100 mg BID PO 12/14/17 20:00 01/13/18 20:59 12/19/17 21:09 100 MG Hydrochlorothiazide (Hydrochlorothiazide Tab) 25 mg QAM PO 12/15/17 08:00 01/14/18 08:59 12/19/17 08:46 25 MG Irbesartan (Avapro Tab) 150 mg DAILY PO 12/15/17 08:00 01/14/18 08:59 12/19/17 08:47 150 MG Nortriptyline HCl (Pamelor Cap) 25 mg HS PO 12/14/17 21:00 01/13/18 20:59 12/19/17 21:09 25 MG Rosuvastatin Calcium (Crestor Tab) 40 mg DAILY PO 12/15/17 08:00 01/14/18 08:59 12/19/17 08:45 40 MG Warfarin Sodium (Coumadin Tab) 10 mg HS PO 12/14/17 22:00 01/13/18 21:59 Future Hold 12/15/17 21:41 10 MG Miscellaneous Information (Order Awaiting Action) 1 ea QS N/A 12/15/17 00:00 01/14/18 00:00 Oxycodone HCl (Roxicodone Immediate Rel Tab) 5 mg Q4H PRN PO 12/14/17 18:45 12/28/17 18:44 12/19/17 08:55 5 MG Oxycodone HCl (Roxicodone Immediate Rel Tab) 10 mg Q4H PRN PO 12/14/17 18:45 12/28/17 18:44 12/19/17 21:10 10 MG Piperacillin Sod/ Tazobactam Sod 3.375 gm/Dextrose 115 ml @ 28.75 mls/ hr Q8H IV 12/14/17 22:00 12/24/17 21:59 12/20/17 14:31 28.75 MLS/HR Magnesium Hydroxide (Milk Of Magnesia Susp) 30 ml DAILY PO 12/18/17 08:00 01/17/18 07:59 Senna (Senokot Tab) 8.6 mg QAM PO 12/18/17 08:00 01/17/18 07:59 12/19/17 08:47 8.6 MG Acetaminophen (Tylenol Tab) 650 mg Q4H PRN PO 12/18/17 11:00 01/17/18 10:59 Diclofenac Sodium (Voltaren 1% Top Gel) 4 appln Q6H EXT 12/18/17 12:00 01/17/18 11:59 12/20/17 05:35 4 APPLN Lactobacillus Acidophilus (Floranex Tab) 4 tab TIDM PO 12/18/17 12:00 01/17/18 11:59 12/19/17 16:52 4 TAB Insulin Glargine (Lantus Solostar Pen) 12 units BID SC 12/19/17 08:00 01/18/18 07:59 12/20/17 08:56 12 UNITS Bisacodyl (Dulcolax Supp) 10 mg DAILY PRN AK 12/19/17 17:30 01/18/18 17:29 Vancomycin HCl 1250 mg/Sodium Chloride 275 ml @ 125 mls/hr Q14H IV 12/20/17 20:00 12/28/17 19:59 Lab Results: 12/20/17 03:32 Test 12/20/17 03:32 12/20/17 16:32 Anion Gap 6.0 mmol/L (3-11) Est Creatinine Clear Calc Drug Dose 71.6 ml/min Estimated GFR () 75.5 Estimated GFR (Non- 65.1 BUN/Creatinine Ratio 18.5 (10-20) Calcium Level 8.8 mg/dl (8.5-10.1) Vancomycin Level Trough 23.9 mcg/ml (SEE COMMENT) Bedside Glucose 100 mg/dl (70-99)
[2017-12-20] MEDS: OXYCODONE HCL IR 5 MG TAB (IMMEDIATE RELEASE) PO PRN ×2 (19:08→23:59)
[2017-12-20] MEDS ORDERED: HYDROmorphone INJ 0.5 MG/0.5 ML SYR IV STA (19:49)
[2017-12-20] MEDS: NORTRIPTYLINE HCL 25 MG CAP PO SCH (20:14)
[2017-12-21] VITALS: O2SAT 95
[2017-12-21 00:06] VITALS: BP 183/97; PULSE 106; TEMP 37; O2SAT 96
[2017-12-21 01:00] VITALS: BP 195/91
--- NOTE | 2017-12-21 01:08 | Progress Note ---
Subjective Date of Service: late entry for visit Dec 20, 2017. Subjective Pt evaluation today including: conversation w/ patient, physical exam, chart review, lab review Pain: left foot PO Intake: normal Voiding: no voiding problems I saw the patient post-op today he was resting comfortably and denied cp, dyspnea, abd pain, diarrhea only mild left foot pain Problem List Medical Problems: (1) Gangrene of left foot Status: Acute (2) Gangrene of toe of left foot Status: Acute Review of Systems Constitutional: No fever, No chills Respiratory: No cough, No sputum, No shortness of breath Abdomen: No pain, No nausea Objective Vital Signs Date Time Temp Pulse Resp B/P (MAP) Pulse Ox O2 Delivery O2 Flow Rate FiO2 12/21/17 00:06 37.0 106 20 183/97 (125) 96 Room Air 12/20/17 16:48 36.8 88 20 131/50 (77) 97 12/20/17 16:00 Room Air 12/20/17 14:31 36.7 86 18 150/84 (106) 96 Room Air 12/20/17 14:10 95 Room Air 12/20/17 13:55 36.8 88 18 147/91 (109) 95 Room Air 12/20/17 13:40 36.4 90 16 145/80 95 Room Air 12/20/17 13:25 36.4 84 16 136/78 96 Room Air 12/20/17 13:15 36.4 95 16 154/90 100 Oxymask 7 12/20/17 13:05 36.4 92 16 163/92 100 Oxymask 7 12/20/17 08:00 95 Room Air 12/20/17 07:00 36.7 92 19 146/74 (98) 92 Room Air Physical Exam General Appearance: no apparent distress ENT: pharynx normal Neck: no JVD Respiratory/Chest: lungs clear, no respiratory distress, no accessory muscle use Cardiovascular: regular rate, rhythm, no gallop, no murmur, + normal peripheral pulses (feet b/l, 2+) Abdomen: normal bowel sounds, non tender, soft, no organomegaly Extremities: no pedal edema, + pertinent finding (left foot wrapped in large dressing from the toes to above the ankle; blood-soaked dressings over first toe ) Neurologic/Psychiatric: alert, oriented x 3 Skin: + pertinent finding (fingernail clubbing) Comments: musculo - left knee effusion largely resolved, no warmth or tenderness Laboratory Results Last 24 Hours Test 12/20/17 03:32 12/20/17 05:57 12/20/17 08:10 12/20/17 10:52 Sodium Level 132 mmol/L Potassium Level 4.2 mmol/L Chloride Level 98 mmol/L Carbon Dioxide Level 28 mmol/L Anion Gap 6.0 mmol/L Blood Urea Nitrogen 22 mg/dl Creatinine 1.21 mg/dl Est Creatinine Clear Calc Drug Dose 71.6 ml/min Estimated GFR () 75.5 Estimated GFR (Non- 65.1 BUN/Creatinine Ratio 18.5 Random Glucose 224 mg/dl Calcium Level 8.8 mg/dl Vancomycin Level Trough 23.9 mcg/ml Bedside Glucose 215 mg/dl 151 mg/dl 143 mg/dl Test 12/20/17 13:11 12/20/17 16:32 12/20/17 20:32 Bedside Glucose 139 mg/dl 100 mg/dl 125 mg/dl Assessment and Plan 57yo male - 1. gangrene left 5th toe with concern of osteomyelitis - s/p amputation of toe and 5th metatarsal head. also s/p removal of great toe toenail and debridement of several ulcers if margins were clean from the operation potentially could stop IV antibiotics over the weekend would d/w ortho service 2. PAD s/p LE arteriogram and left SFA angioplasty with stent by Dr. Mendez. Lipids controlled; cont statin. Resume plavix when ok with ortho. Plavix will be needed for 1 month. After 1 month of plavix then aspirin indefinitely. 3. left knee pseudogout - resolved w/ voltaren gel. 4. HTN - continue outpatient meds. 5. ?delirium - unlikely, ruled out, mental status seems at baseline. 6. COPD - from tobacco dependence. 7. T2DM - cont lantus 12 units BID & novolog with correction factor 30, carb ratio 1:10. Adjust as needed. Control fairly good last 24 hours. 8. h/o DVT, LLE, 2009 (based on records) - on chronic coumadin. Coumadin held for procedures. Unclear why he has been maintained on coumadin for so long. Would defer the coumadin decision to his medical investigator at the care home who has been managing such. Resume when ok w/ ortho. 9. tachycardia - suspect SIRS from #1. Resolved. TSH was wnl. 10. hyperlipidemia - controlled w/ statin agent. 11. ?history of CAD - noted. 12. tobacco dependence - herb counselor to quit. 13. constipation - bowel regimen. will need to clarify weight bearing status on left foot with orthopedics Continued [facility] stay due to: multiple IV medications needed Discharge planning: other (care home )
[2017-12-21] MEDS ORDERED: HydrALAZINE 10 MG TAB PO PRN (02:00)
[2017-12-21] MEDS: DICLOFENAC SOD 1% GEL 100 GM TUBE EXT SCH ×5 (05:58→23:55)
[2017-12-21] MEDS: PIPERACILL/TAZOBAC IV 3.375 GM in DEXTROSE 5% 100ML IV SCH (05:58)
[2017-12-21 06:30] LABS: HEMOGLOBIN 12.4 g/dL (14.0-18.0); MEAN CELL VOLUME 85.8 fL (80-100); MEAN CORPUSCULAR HEMOGLOBIN 30.4 pg (25-34); MEAN CORPUSCULAR HGB CONC 35.4 g/dl (32-36); MEAN PLATELET VOLUME 9.2 fL (7.4-10.4); PLATELET COUNT 191 K/uL (130-400); RED CELL DISTRIBUTION WIDTH CV 14.4 % (11.5-14.5); RED CELL DISTRIBUTION WIDTH SD 44.8 fL (36.4-46.3)
[2017-12-21 07:08] VITALS: BP 138/80; PULSE 89; TEMP 37; O2SAT 94
[2017-12-21 07:14] LABS: CALCIUM 9.5 mg/dl (8.5-10.1); CREATININE 0.99 mg/dl (0.60-1.40)
[2017-12-21] MEDS: OXYCODONE HCL IR 5 MG TAB (IMMEDIATE RELEASE) PO PRN ×2 (07:52→19:29)
[2017-12-21] MEDS: LACTOBACILLUS ACIDOPHILUS (FLORANEX) TAB PO SCH ×3 (07:53→18:32)
[2017-12-21] MEDS: ROSUVASTATIN CALCIUM 20 MG TAB PO SCH (07:53)
[2017-12-21] MEDS: SENNA 8.6 MG TAB PO SCH (07:54)
[2017-12-21] MEDS: IRBESARTAN 150 MG TAB PO SCH (07:54)
[2017-12-21] MEDS: HYDROCHLOROTHIAZIDE 25 MG TAB PO SCH (07:55)
[2017-12-21] MEDS: CILOSTAZOL 100 MG TAB PO SCH ×2 (07:55→20:54)
[2017-12-21] MEDS: MAGNESIUM HYDROXIDE SUSP 30 ML UDC PO SCH (07:56)
[2017-12-21] MEDS: INSULIN GLARGINE SOLOSTAR 100 UNITS/ML 3 ML PEN SC SCH ×2 (09:04→20:56)
[2017-12-21] MEDS: INSULIN ASPART 100 UNITS/ML 3 ML PEN SC SCH ×4 (09:05→20:59)
[2017-12-21] MEDS: VANCOMYCIN IV 1,250 MG in SODIUM CHLORIDE 0.9% 250ML 250 ML IV SCH (10:06)
--- NOTE | 2017-12-21 10:46 | Orthopedic Progress Note ---
Orthopedic Progress Note Date of Service Dec 21, 2017. Subjective Additional Notes: Patient seen lying in bed with security at bedside. Comfortable, denies pain, no acute issues overnight. Objective Left lower extremity, lower extremity stocking neuropathy, +2 dorsalis pedis pulse. Incisions clean dry and intact, compartments soft nontender. Date Time Temp Pulse Resp B/P (MAP) Pulse Ox O2 Delivery O2 Flow Rate FiO2 12/21/17 07:08 37.0 89 18 138/80 (99) 94 12/21/17 01:00 195/91 (125) 12/21/17 00:06 37.0 106 20 183/97 (125) 96 Room Air 12/21/17 00:00 95 Room Air 12/20/17 16:48 36.8 88 20 131/50 (77) 97 12/20/17 16:00 Room Air 12/20/17 14:31 36.7 86 18 150/84 (106) 96 Room Air 12/20/17 14:10 95 Room Air 12/20/17 13:55 36.8 88 18 147/91 (109) 95 Room Air 12/20/17 13:40 36.4 90 16 145/80 95 Room Air 12/20/17 13:25 36.4 84 16 136/78 96 Room Air 12/20/17 13:15 36.4 95 16 154/90 100 Oxymask 7 12/20/17 13:05 36.4 92 16 163/92 100 Oxymask 7 Laboratory Results 24 Hours: Test 12/21/17 06:08 Hematocrit 35.0 % Hemoglobin 12.4 g/dL Assessment & Plan Assessment: POD#1 s/p 1. Left foot fifth toe amputation. 2. Left foot fifth metatarsal head resection. 3. Irrigation and debridement of the first and second toe ulcerations including full thickness skin. 4. Removal of great toe nail plate. 5. Debridement of plantar ulcerations, third and fifth metatarsal heads, full thickness, 1 cm in diameter Left 5th toe gangrene 1st and 2nd toe superficial ulcerations B LE stocking neuropathy PVD S/P revascularization L LE 12/18/17 Plan: abx per medial team WBAT through heel with surgical post op shoe, otherwise non weight bearing outside of shoe PT/OT Dressing changed today 12/21/17 am labs - hgb 12.4 surgical path pending may restart anticoagulation
[2017-12-21] MEDS ORDERED: CLOPIDOGREL BISULFATE 75 MG TAB PO ONE (11:00)
[2017-12-21] MEDS ORDERED: POLYETHYLENE (MIRALAX) 17 GM PACK PO ONE (11:05)
[2017-12-21] MEDS ORDERED: IRBESARTAN 150 MG TAB PO STA (11:05)
[2017-12-21] MEDS ORDERED: FLUTICASONE HFA 110MCG INHALER INH ONE (11:27)
--- NOTE | 2017-12-21 11:29 | Hospitalist Progress Note ---
Hospitalist Progress Note Date of Service Dec 21, 2017. Subjective Pt evaluation today including: conversation w/ patient, conversation w/ reservoir engineering consultant (Orthopedics) Voiding: no voiding problems Pt has no complaints. Pain controlled. Has not moved his bowels in 4 days. Denies CP/SOB, no abd pain, no diarrhea. Ortho changed his dressing this AM and tells me it looks clean, no signs of infection Constitutional: No fever All Other Systems: Reviewed and Negative Objective Vital Signs Date Time Temp Pulse Resp B/P (MAP) Pulse Ox O2 Delivery O2 Flow Rate FiO2 12/21/17 08:00 Room Air 12/21/17 07:08 37.0 89 18 138/80 (99) 94 12/21/17 01:00 195/91 (125) 12/21/17 00:06 37.0 106 20 183/97 (125) 96 Room Air 12/21/17 00:00 95 Room Air 12/20/17 16:48 36.8 88 20 131/50 (77) 97 12/20/17 16:00 Room Air 12/20/17 14:31 36.7 86 18 150/84 (106) 96 Room Air 12/20/17 14:10 95 Room Air 12/20/17 13:55 36.8 88 18 147/91 (109) 95 Room Air 12/20/17 13:40 36.4 90 16 145/80 95 Room Air 12/20/17 13:25 36.4 84 16 136/78 96 Room Air 12/20/17 13:15 36.4 95 16 154/90 100 Oxymask 7 12/20/17 13:05 36.4 92 16 163/92 100 Oxymask 7 Physical Exam General Appearance: WD/WN, no apparent distress Eyes: normal inspection, sclerae normal ENT: hearing grossly normal Neck: trachea midline Respiratory/Chest: no respiratory distress, no accessory muscle use, + pertinent finding (a few scattered rhonchi) Cardiovascular: regular rate, rhythm, no edema, no gallop, no murmur Abdomen: normal bowel sounds, non tender, soft, no organomegaly Extremities: no pedal edema, no calf tenderness, + pertinent finding (left foot and ankle in bulky dressing not removed) Neurologic/Psychiatric: alert, normal mood/affect, oriented x 3 Skin: normal color, warm/dry, no rash Laboratory Results Last 24 Hours Test 12/20/17 13:11 12/20/17 16:32 12/20/17 20:32 12/21/17 06:08 Bedside Glucose 139 mg/dl 100 mg/dl 125 mg/dl White Blood Count 6.80 K/uL Red Blood Count 4.08 M/uL Hemoglobin 12.4 g/dL Hematocrit 35.0 % Mean Corpuscular Volume 85.8 fL Mean Corpuscular Hemoglobin 30.4 pg Mean Corpuscular Hemoglobin Concent 35.4 g/dl RDW Standard Deviation 44.8 fL RDW Coefficient of Variation 14.4 % Platelet Count 191 K/uL Mean Platelet Volume 9.2 fL Sodium Level 134 mmol/L Potassium Level 4.0 mmol/L Chloride Level 100 mmol/L Carbon Dioxide Level 27 mmol/L Anion Gap 7.0 mmol/L Blood Urea Nitrogen 15 mg/dl Creatinine 0.99 mg/dl Est Creatinine Clear Calc Drug Dose 87.5 ml/min Estimated GFR () 96.2 Estimated GFR (Non- 83.0 BUN/Creatinine Ratio 15.3 Random Glucose 132 mg/dl Calcium Level 9.5 mg/dl Chemistry Specimen Hemolysis Test 12/21/17 07:48 Bedside Glucose 105 mg/dl Assessment and Plan Mr. Sky Palma is a 57-year-old male with a history of PAD, DMII,COPD, and HTN, who presented with worsening pain of the left fifth toe and purulent drainage. [facility] and was noted ot have severe PAD and was pending Vascular evaluation prior to admission. 1. Gangrene left 5th toe with osteomyelitis - s/p amputation of toe and 5th metatarsal head with confirmed OM during surgery as per op reports. -also s/p removal of left great toe toenail and debridement of several ulcers on other toes Discussed with Ortho--> ok to stop IV abx and will give 2 more days of po antibiotics as wound appears clean and infected portion now amputated -dc IV ZOsyn and Vanco, MRSA swab negative -start Augmentin 875mg po bid x 2 more days -continue Orthopedic follow up and to change dressing tomorrow, then can likely dc with dressing change recommendations to follow from Orhto -order post-op shoe with heel touch only on left as per Ortho -pain control with oxycodone Constipation-worsened by inactivity and opioids -needs more aggressive bowel regimen -add Miralax -add Docusate-senna bid -continue MOM and Bisacodyl suppos prn 2. PAD s/p LE arteriogram and left SFA angioplasty with drug-eluting balloon by Dr. Mendez. Lipids controlled; cont statin. -Begin Plavix 75mg po daily today as is ok with Ortho--> Plavix will be needed for 1 month. After 1 month of plavix then switch to aspirin indefinitely. 3. left knee pseudogout - resolved w/ voltaren gel. xray with large effusion 4. HTN - not well controlled at all, required prn hydralazine and labetalol yesterday -continue HCTZ -increase irbesartan to 300mg qday 5. ?delirium - unlikely, ruled out, mental status seems at baseline. 6. COPD - from tobacco dependence.stable but has some rhonchi -was not on home inhaled corticosteroid here as nonformulary -start Flovent 1 puff bid to replace home Alvesco -order prn levalbuterol 7. T2DM - no HgbA1C in ou system, glucose checks fairly well controlled here -cont lantus 12 units BID & novolog sliding scale Adjust as needed. -check HgbA1C 8. h/o DVT, LLE, 2010 (based on records) - on chronic coumadin. Coumadin held for procedures. Unclear why he has been maintained on coumadin for so long. Would defer the coumadin decision to [facility] medical auditor [facility] who has been managing such. -ok to resume coumadin 10mg qPM today -follow PT/INR 9. tachycardia - suspect SIRS from #1. -Resolved. TSH was wnl. 10. hyperlipidemia - controlled w/ statin agent. 11. ?history of CAD - noted. 12. tobacco dependence - food counselor to quit. Proph-coumadin to restart today, add low dose heparin until INR therapeutic [facility]po-to [facility] hopefully tomorrow after next dressing change
[2017-12-21] MEDS ORDERED: LEVALBUTEROL 0.63MG/3 ML NEB INH PRN (11:30)
[2017-12-21] MEDS: AMOXICILLIN/CLAVULANATE TAB 875 MG TAB PO SCH ×2 (11:36→18:31)
[2017-12-21 16:16] VITALS: BP 142/78; PULSE 91; TEMP 36.7; O2SAT 97
[2017-12-21] MEDS: WARFARIN SOD 10 MG TAB PO SCH (16:22)
[2017-12-21] MEDS: FLUTICASONE HFA 110MCG INHALER INH SCH (20:52)
[2017-12-21] MEDS: DOCUSATE SODIUM/SENNA 50/8.6MG TAB PO SCH (20:53)
[2017-12-21] MEDS: HEPARIN SOD 5000 UNIT/0.5 ML CARP SQ SCH (20:57)
[2017-12-21] MEDS: NORTRIPTYLINE HCL 25 MG CAP PO SCH (20:59)
[2017-12-21 23:41] VITALS: BP 126/80; PULSE 95; TEMP 36.8; O2SAT 94
[2017-12-22] MEDS: DICLOFENAC SOD 1% GEL 100 GM TUBE EXT SCH ×3 (05:59→16:46)
[2017-12-22 06:26] LABS: BASO % 0.4 %; BASO ABS # 0.03 K/uL (0-0.2); EOS % 3.4 %; EOS ABS # 0.24 K/uL (0-0.5); HEMATOCRIT 34.7 % (42-52); HEMOGLOBIN 12.3 g/dL (14.0-18.0); IG# 0.01 K/uL (0.00-0.02); LYMPH % 21.4 %; LYMPH ABS # 1.51 K/uL (1.2-3.4); MEAN CELL VOLUME 85.9 fL (80-100); MEAN CORPUSCULAR HEMOGLOBIN 30.4 pg (25-34); MEAN CORPUSCULAR HGB CONC 35.4 g/dl (32-36); MEAN PLATELET VOLUME 9.3 fL (7.4-10.4); MONO ABS # 0.92 K/uL (0.11-0.59); NEUT % 61.7 %; NEUT ABS # 4.35 K/uL (1.4-6.5); PLATELET COUNT 190 K/uL (130-400); RED CELL DISTRIBUTION WIDTH CV 14.1 % (11.5-14.5); RED CELL DISTRIBUTION WIDTH SD 44.1 fL (36.4-46.3); WHITE BLOOD COUNT 7.06 K/uL (4.8-10.8)
[2017-12-22 06:57] VITALS: BP 170/92; PULSE 93; TEMP 36.8; O2SAT 95
[2017-12-22 06:59] LABS: CALCIUM 9.5 mg/dl (8.5-10.1); CREATININE 0.94 mg/dl (0.60-1.40); POTASSIUM 3.8 mmol/L (3.5-5.1)
[2017-12-22] MEDS ORDERED: POLYETHYLENE (MIRALAX) 17 GM PACK PO SCH (08:00)
[2017-12-22] MEDS ORDERED: IRBESARTAN 150 MG TAB PO SCH (08:00)
[2017-12-22] MEDS ORDERED: CLOPIDOGREL BISULFATE 75 MG TAB PO SCH (08:00)
[2017-12-22] MEDS: FLUTICASONE HFA 110MCG INHALER INH SCH (08:36)
[2017-12-22] MEDS: LACTOBACILLUS ACIDOPHILUS (FLORANEX) TAB PO SCH ×3 (08:38→16:44)
[2017-12-22] MEDS: ROSUVASTATIN CALCIUM 20 MG TAB PO SCH (08:38)
[2017-12-22] MEDS: CILOSTAZOL 100 MG TAB PO SCH (08:39)
[2017-12-22] MEDS: HYDROCHLOROTHIAZIDE 25 MG TAB PO SCH (08:40)
[2017-12-22] MEDS: AMOXICILLIN/CLAVULANATE TAB 875 MG TAB PO SCH ×2 (08:41→16:43)
[2017-12-22] MEDS: DOCUSATE SODIUM/SENNA 50/8.6MG TAB PO SCH (08:43)
[2017-12-22] MEDS: MAGNESIUM HYDROXIDE SUSP 30 ML UDC PO SCH (08:51)
[2017-12-22] MEDS: INSULIN GLARGINE SOLOSTAR 100 UNITS/ML 3 ML PEN SC SCH (08:54)
[2017-12-22] MEDS: HEPARIN SOD 5000 UNIT/0.5 ML CARP SQ SCH (08:54)
[2017-12-22] MEDS: INSULIN ASPART 100 UNITS/ML 3 ML PEN SC SCH ×3 (08:54→16:50)
--- NOTE | 2017-12-22 09:20 | Orthopedic Progress Note ---
Orthopedic Progress Note Date of Service Dec 22, 2017. Subjective Post OP Day: 2 Reports: feeling well, pain controlled w PO medications, Denies: complaints, chest pain, SOB, nausea / vomiting, light headedness, calf pain Objective calves soft nontender, N/V intact, capillary refill less than 2 sec., incision C /D/I, A&O x3, toes mobile Date Time Temp Pulse Resp B/P (MAP) Pulse Ox O2 Delivery O2 Flow Rate FiO2 12/22/17 06:57 36.8 93 19 170/92 (118) 95 Room Air 12/22/17 00:20 Room Air 12/21/17 23:41 36.8 95 19 126/80 (95) 94 Room Air 12/21/17 21:00 Room Air 12/21/17 16:16 36.7 91 18 142/78 (99) 97 Room Air 12/21/17 16:00 Room Air Laboratory Results 24 Hours: Test 12/22/17 06:10 White Blood Count 7.06 K/uL Red Blood Count 4.04 M/uL Hemoglobin 12.3 g/dL Hematocrit 34.7 % Mean Corpuscular Volume 85.9 fL Mean Corpuscular Hemoglobin 30.4 pg Mean Corpuscular Hemoglobin Concent 35.4 g/dl Platelet Count 190 K/uL Mean Platelet Volume 9.3 fL Neutrophils (%) (Auto) 61.7 % Lymphocytes (%) (Auto) 21.4 % Monocytes (%) (Auto) 13.0 % Eosinophils (%) (Auto) 3.4 % Basophils (%) (Auto) 0.4 % Neutrophils # (Auto) 4.35 K/uL Lymphocytes # (Auto) 1.51 K/uL Monocytes # (Auto) 0.92 K/uL Eosinophils # (Auto) 0.24 K/uL Basophils # (Auto) 0.03 K/uL Prothromb Time International Ratio 1.0 Prothrombin Time 10.7 SECONDS Assessment & Plan Assessment: POD#2 s/p 1. Left foot fifth toe amputation. 2. Left foot fifth metatarsal head resection. 3. Irrigation and debridement of the first and second toe ulcerations including full thickness skin. 4. Removal of great toe nail plate. 5. Debridement of plantar ulcerations, third and fifth metatarsal heads, full thickness, 1 cm in diameter Left 5th toe gangrene 1st and 2nd toe superficial ulcerations B LE stocking neuropathy PVD S/P revascularization L LE 12/18/17 Plan: abx per medial team WBAT through heel with surgical post op shoe, otherwise non weight bearing outside of shoe PT/OT Dressing changed today 12/22/17 am labs - hgb 12.4 surgical path pending
[2017-12-22] MEDS: OXYCODONE HCL IR 5 MG TAB (IMMEDIATE RELEASE) PO PRN (09:34)
--- NOTE | 2017-12-22 11:11 | Consultant Recommendations ---
Salt Washer Recommendations Date of Service Dec 22, 2017. Salt Washer Recommendations ACTIVITY RECOMMENDATIONS: Limitations: Heel weight bearing only if able to tolerate. Continue post op shoe with ambulation Daily dressing changes of Xeroform, 4x4, Kerlix and PANTERA wrap Continue antibiotics as per medicine team SPECIAL CARE INSTRUCTIONS: * Some drainage onto the dressing is normal and is no cause for alarm. * Some swelling is natural especially after walking. * When resting, keep your foot elevated above the level of your heart. * Call [facility] if you notice: -Increased drainage -Fever over 101 degrees F -Severe constant pain BANDAGE: * Daily dressing changes can be performed with Xeroform, 4x4, Kerlix and PANTERA wrap FOLLOW UP VISIT WITH DR. GLEZ If appointment is not already scheduled: Please call [facility] after you get home today to schedule a follow-up appointment for [address] Glez at .
[2017-12-22] MEDS ORDERED: VANCOMYCIN TROUGH ONE (13:30)
[2017-12-22 15:08] VITALS: BP 145/76; PULSE 88; TEMP 36.7; O2SAT 97
[2017-12-22] MEDS ORDERED: MRLP17 PO (15:36)
[2017-12-22] MEDS ORDERED: PLV75 PO (15:36)
[2017-12-22] MEDS ORDERED: IRBE1TAB50 PO (15:36)
[2017-12-22] MEDS ORDERED: AMOX1TAB43 PO (15:36)
[2017-12-22] MEDS ORDERED: VLTG EXT (15:36)
[2017-12-22] MEDS ORDERED: ACET-1047 PO (15:36)
[2017-12-22] MEDS ORDERED: INSU1INJ SC (15:36)
[2017-12-22] MEDS ORDERED: SENN8.6T7 PO (15:36)
[2017-12-22] MEDS ORDERED: ASPEC81 PO (15:36)
--- NOTE | 2017-12-22 15:46 | Discharge Instructions ---
Discharge Instructions Date of Service Dec 22, 2017. Admission Reason for Admission: Gangrene Of Left Foot Discharge Discharge Diagnosis / Problem: Left 5th toe gangrene s/p amputation, Osteomyelitis Discharge Goals Goal(s): Improve disease control, Diagnostic testing, Therapeutic intervention Activity Recommendations Activity Limitations: as noted below Shower/Bathe: keep incision dry See Orthopedic Instructions below . Instructions / Follow-Up Instructions / Follow-Up Mr. Palma had a gangrenous left 5th toe which was amputated, ingrown left great toenail now removed, and some plantar ulcerations that were debrided. He should remain on oral antibiotics for a few more days. He should have follow up with Orthopedic Surgery in the next 3-5 days for follow up, and dressing changes as per instructions by Ortho. He should also continue follow up in the Wound Clinic as before. He had revascularization of the left superficial femoral artery and needs outpatient follow up with Dr. Suleamn Mendez of [facility] in 3-4 weeks. His blood pressure medicine was increased for significantly elevated blood pressures which are now improved. He was also found to have pseudogout of the left knee which is now improved. He was restarted on coumadin and will need his INR checked in 2-3 days. He should also have his CBC, ESR, and Crp repeated in 2-3 days. Current Hospital Diet Patient's current hospital diet: Diabetes Type 2 Diet, AHA Diet (Heart Healthy) Discharge Diet Recommended Diet: AHA Diet (Heart Healthy), Diabetes Type 2 Diet Procedures Procedures Performed: 1. Left 5th Toe amputation 2. Left fifth Metatarsal Head Amputation 3. Irrigation and Debridement of left 1st and 2nd toe neuropathic ulcerations (skin full thickness) 4. Removal of nail plate of left great toe Left foot xray Left knee xray Left foot MRI CT angiography abdominal aorta with runoff of bilateral lower extremities 5. Debridement plantar ulcerations 3rd and 5th metatarsal heads (skin full thickness) Pending Studies Studies pending at discharge: no Laboratory Results Last 24 Hours Test 12/21/17 16:57 12/21/17 20:20 12/22/17 06:10 12/22/17 07:45 Bedside Glucose 150 mg/dl 173 mg/dl 136 mg/dl White Blood Count 7.06 K/uL Red Blood Count 4.04 M/uL Hemoglobin 12.3 g/dL Hematocrit 34.7 % Mean Corpuscular Volume 85.9 fL Mean Corpuscular Hemoglobin 30.4 pg Mean Corpuscular Hemoglobin Concent 35.4 g/dl Platelet Count 190 K/uL Mean Platelet Volume 9.3 fL Neutrophils (%) (Auto) 61.7 % Lymphocytes (%) (Auto) 21.4 % Monocytes (%) (Auto) 13.0 % Eosinophils (%) (Auto) 3.4 % Basophils (%) (Auto) 0.4 % Neutrophils # (Auto) 4.35 K/uL Lymphocytes # (Auto) 1.51 K/uL Monocytes # (Auto) 0.92 K/uL Eosinophils # (Auto) 0.24 K/uL Basophils # (Auto) 0.03 K/uL RDW Standard Deviation 44.1 fL RDW Coefficient of Variation 14.1 % Immature Granulocyte % (Auto) 0.1 % Immature Granulocyte # (Auto) 0.01 K/uL Erythrocyte Sedimentation Rate > 90 mm/hr Prothrombin Time 10.7 SECONDS Prothromb Time International Ratio 1.0 Sodium Level 133 mmol/L Potassium Level 3.8 mmol/L Chloride Level 99 mmol/L Carbon Dioxide Level 28 mmol/L Anion Gap 6.0 mmol/L Blood Urea Nitrogen 15 mg/dl Creatinine 0.94 mg/dl Est Creatinine Clear Calc Drug Dose 92.1 ml/min Estimated GFR () 102.4 Estimated GFR (Non- 88.4 BUN/Creatinine Ratio 15.7 Random Glucose 176 mg/dl Calcium Level 9.5 mg/dl C-Reactive Protein 6.49 mg/dl Test 12/22/17 11:45 12/22/17 13:33 Bedside Glucose 154 mg/dl Vancomycin Level Trough 6.6 mcg/ml Hemoglobin A1c Test 12/22/17 06:10 Range/Units Lipid Panel Test 12/19/17 06:32 Range/Units Triglycerides Level 42 0-150 mg/dl Cholesterol Level 127 0-200 mg/dl HDL Cholesterol 62 mg/dl Cholesterol/HDL Ratio 2.0 LDL Cholesterol, Calculated 57 mg/dl Medical Emergencies . Who to Call and When: Medical Emergencies: If at any time you feel your situation is an emergency, please call 911 immediately. . Non-Emergent Contact Non-Emergency issues call your: Primary Care Provider Call Non-Emergent contact if: you have a fever, temperature is above 100.5, your pain is not controlled, your pain is worsening, your pain is unusual for you, your pain is concerning you, wound has increased drainage, wound has increased redness, wound has increased pain, you have any medication questions . . "Provider Documentation" section prepared by Laurita Box. . Security Escort Recommendations Security Escort Recommendations: ACTIVITY RECOMMENDATIONS: Limitations: Heel weight bearing only if able to tolerate. Continue post op shoe with ambulation Daily dressing changes of Xeroform, 4x4, Kerlix and PANTERA wrap Continue antibiotics as per medicine team SPECIAL CARE INSTRUCTIONS: * Some drainage onto the dressing is normal and is no cause for alarm. * Some swelling is natural especially after walking. * When resting, keep your foot elevated above the level of your heart. * Call [facility] if you notice: -Increased drainage -Fever over 101 degrees F -Severe constant pain BANDAGE: * Daily dressing changes can be performed with Xeroform, 4x4, Kerlix and PANTERA wrap FOLLOW UP VISIT WITH DR. GARCIA If appointment is not already scheduled: Please call [facility] after you get home today to schedule a follow-up appointment for [address] Garcia at .
--- NOTE | 2017-12-22 16:03 | Discharge Summary ---
Discharge Summary Date of Service Dec 22, 2017. 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 Sinus tachycardia Hyperlipidemia History of CAD Tobacco dependence Procedures: Left 5th Toe amputation Left fifth Metatarsal Head Amputation Irrigation and Debridement of left 1st and 2nd toe neuropathic ulcerations (skin full thickness) Removal of nail plate of left great toe Debridement plantar ulcerations 3rd and 5th metatarsal heads (skin full thickness) Left foot xray Left knee xray Left foot MRI CT angiography abdominal aorta with runoff of bilateral lower extremities Consultations: Orthopedic Surgery Interventional Cardiology Medication Reconciliation New Medications: Aspirin (Aspirin EC Low Dose) 81 Mg Ectab 81 MG PO DAILY for 30 Days DO NOT START UNTIL AFER ON PLAVIX FOR 30 DAYS Irbesartan (Irbesartan) 300 Mg Tab 1 TAB PO DAILY for 30 Days, #30 TAB 0 Refills Acetaminophen (Mapap) 325 Mg Tab 650 MG PO Q4H PRN for Pain for 30 Days Amoxicillin & Pot Clavulanate (Amoxicillin/Clavulanate P) 1 Tab Tab 875 MG PO BIDM for 2 Days, #4 TAB Clopidogrel Bisulfate (Clopidogrel) 75 Mg Tab 75 MG PO QAM for 30 Days, #30 TAB ONLY x 1 MONTH, THEN SWITCH TO ASPIRIN 81 mg ONCE DAILY Diclofenac Sod (Voltaren) 100 Appln/100 Gm Gel 4 APPLN EXT Q6H for 7 Days apply to left knee as needed for pain Polyethylene (Miralax) 17 Gm Pow 17 GM PO DAILY PRN for Constipation for 30 Days Sennosides-Docusate Sodium (Senokot S) 1 Tab Tab 1 TAB PO BID for 30 Days, TAB Changed Medications: Insulin Isophan/Regular (Humulin 70/30) Susp 30 UNITS SC QPM for 30 Days (Medication details modified) HOLD DOSE ON EVENING OF 12/22/17 ALREADY RECEIVED LANTUS TODAY IN HOSPITAL Continued Medications: Ciclesonide (Alvesco) 160 Mcg/Act Aer 2 PUFF INH QAM Cilostazol (Pletal) 100 Mg Tab 100 MG PO BID, TAB Emollient Ointment (Hydrophor) 454 Gm Oint 1 DOSE TOP BID Hydrochlorothiazide (Hctz) 25 Mg Tab 25 MG PO QAM, TAB Insulin Human Isophan/Regular (Humulin 70/30) Inj 25 UNITS SC QAM Levalbuterol Tartrate (Levalbuterol Tartrate Hfa) 45 Mcg/Act Aer 45 MCG INH TID PRN for PRN Nortriptyline (Pamelor) 25 Mg Cap 25 MG PO HS, CAP CRUSH Rosuvastatin Calcium (Crestor) 40 Mg Tab 1 TAB PO DAILY, TAB Warfarin Sod (Coumadin) 10 Mg Tab 10 MG PO HS Discontinued Medications: Ciprofloxacin Tab (Cipro) 250 Mg Tab 500 MG PO BID, TAB Irbesartan (Avapro) 150 Mg Tab 1 TAB PO DAILY, TAB Referrals At Discharge Follow up Referrals: Ec Teacher Referral - Within a Month with Freddy Mendez MD Discharge Exam Pt feeling fine, no CP or SOB, pain controlled. He moved his bowels yesterday. No abd pain. Afebrile. BP much improved today. Physical Exam Vitals reviewed General Appearance: WD/WN, no apparent distress Eyes: normal inspection, sclerae normal ENT: hearing grossly normal Neck: trachea midline Respiratory/Chest: no respiratory distress, no accessory muscle use, + pertinent finding (a few scattered rhonchi) Cardiovascular: regular rate, rhythm, no edema, no gallop, no murmur Abdomen: normal bowel sounds, non tender, soft, no organomegaly Extremities: no pedal edema, no calf tenderness, + pertinent finding (left foot and ankle in bulky dressing not removed) Neurologic/Psychiatric: alert, normal mood/affect, oriented x 3 Skin: normal color, warm/dry, no rash Review of Systems: Constitutional: No fever Eyes: No problem reported ENT: No problem reported Respiratory: No problem reported Cardiovascular: No problem reported Abdomen: No problem reported Musculoskeletal: No problem reported Genitourinary - Male: No problem reported Neurologic: No problem reported Psychiatric: No problem reported Endocrine: No problem reported Hematologic / Lymphatic: No problem reported Integumentary: No problem reported Hospital Course Mr. Sky Palma is a 57-year-old male with a history of PAD, DMII,COPD, and HTN, who presented with worsening pain of the left fifth toe and purulent drainage. He was being followed by the Wound Clinic and was noted to have severe PAD and was pending Vascular evaluation prior to admission. Gangrene left 5th toe with osteomyelitis - s/p amputation of toe and 5th metatarsal head with confirmed OM during surgery as per op reports. -also s/p removal of left great toe toenail and debridement of several ulcers on other toes Discussed with Ortho--> received IV abx and will give 2 more days of Augmentin as wound appears clean and infected portion now amputated -Orthopedic surgery changed dressing today, 12/22--> follow up this week -order post-op shoe with heel touch only on left as per Ortho -pain control with tylenol prn Constipation-worsened by inactivity and opioids--> now had a BM and is improved -continue Miralax -continue Docusate-senna bid PAD s/p LE arteriogram and left SFA angioplasty with drug-eluting balloon by Dr. Mendez. Lipids controlled; cont statin. -continue Plavix 75mg po daily--> Plavix will be needed for 1 month. After 1 month of plavix then switch to aspirin 81mg indefinitely. Left knee pseudogout - resolved w/ voltaren gel. xray with large effusion HTN - was not well controlled here, increased Avapro to 300mg and now much improved -continue HCTZ -continue increased dose of irbesartan to 300mg qday COPD - from tobacco dependence.stable but has some rhonchi -continue Alvesco -continue prn levalbuterol DMII - glucose checks fairly well controlled here, HgbA1C pending here at time of discharge -received lantus 12 units BID & novolog sliding scale here -switch back to home 70/30 on discharge H/o DVT, LLE, 2009 (based on records) - on chronic coumadin. 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 Clotting disorder? 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 -continue coumadin 10mg qPM -follow PT/INR in 2-3 days Sinus tachycardia - suspect SIRS from #1. -Resolved. TSH was wnl. Hyperlipidemia - controlled w/ statin agent. History of CAD - noted. 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 Stable for discharge to [facility] Total Time Spent: Greater than 30 minutes This includes examination of the patient, discharge planning, medication reconciliation, and communication with other providers. Discharge Instructions Please refer to the electronic Patient Visit Report (Discharge Instructions) for additional information. Follow-Up With [facility] PCP within 1-2 days With Orthopedic Surgery within 3-5 days With Interventional Cardiology in 3-4 weeks Check PT/INR, CBC, Crp, ESR in 2-3 days. Additional Copies To Pantera Garcia D.O.; Freddy Mendez MD; Ashleigh ONTIVEROS
[2017-12-22 16:04] VITALS: BP 145/76; PULSE 88; TEMP 36.7; O2SAT 97
[2017-12-22] MEDS: WARFARIN SOD 10 MG TAB PO SCH (16:45)
[2017-12-23 06:44] LABS: HEMOGLOBIN A1C 7.5 % (4.5-5.6)
== END 2017-12-22 18:45 | DRG 253 ==
LOC: C.EDB 13:22 → C.MS4W 15:54 → EDBEDREQ 16:01
PROVIDERS: ADMIT Internal Medicine; ATTEND Family Medicine
PROC: 047L3Z1 Dilation of Left Femoral Artery using Drug-Coated Balloon, Percutaneous Approach (ICD-10-PCS; principal; 2017-12-18 08:00)
PROC: 047K3ZZ Dilation of Right Femoral Artery, Percutaneous Approach (ICD-10-PCS; principal; 2017-12-18 08:00)
PROC: 0HDRXZZ Extraction of Toe Nail, External Approach (ICD-10-PCS; 2017-12-20 11:45)
PROC: 0QBN0ZZ Excision of Right Metatarsal, Open Approach (ICD-10-PCS; 2017-12-20 11:45)
PROC: 0Y6Y0Z0 Detachment at Left 5th Toe, Complete, Open Approach (ICD-10-PCS; 2017-12-20 11:45)
DX: E11.52 Type 2 diabetes mellitus with diabetic peripheral angiopathy with gangrene (principal); M86.172 Other acute osteomyelitis, left ankle and foot; I70.262 Atherosclerosis of native arteries of extremities with gangrene, left leg; L97.528 Non-pressure chronic ulcer of other part of left foot with other specified severity; E11.69 Type 2 diabetes mellitus with other specified complication; I70.201 Unspecified atherosclerosis of native arteries of extremities, right leg; L60.0 Ingrowing nail; K59.03 Drug induced constipation; T40.2X5A Adverse effect of other opioids, initial encounter; R00.0 Tachycardia, unspecified; E11.621 Type 2 diabetes mellitus with foot ulcer; L97.524 Non-pressure chronic ulcer of other part of left foot with necrosis of bone; E11.649 Type 2 diabetes mellitus with hypoglycemia without coma; M25.562 Pain in left knee; M25.462 Effusion, left knee; E78.5 Hyperlipidemia, unspecified; I25.10 Atherosclerotic heart disease of native coronary artery without angina pectoris; I11.9 Hypertensive heart disease without heart failure; J44.9 Chronic obstructive pulmonary disease, unspecified; F17.200 Nicotine dependence, unspecified, uncomplicated; Z79.899 Other long term (current) drug therapy; Z79.01 Long term (current) use of anticoagulants; Z79.4 Long term (current) use of insulin; Z86.718 Personal history of other venous thrombosis and embolism; Z91.018 Allergy to other foods

== ENCOUNTER 2018-01-12 08:50 | Inpatient (IN) | payer OTHER ==
[~2018-01-12] VITALS: Ht 175.3 cm; Wt 86.7 kg
[~2018-01-12 08:50] MED LIST changes: +ACET-1047 PO; +AMOX1TAB43 PO; +ASPI-320 PO; -CIPR1TAB11 PO; -IRBE-37 PO; +IRBE1TAB50 PO; +MRLP17 PO; +PLV75 PO; +SENN8.6T7 PO; +VLTG EXT
[2018-01-12] MEDS ORDERED: ACET-1256 PO (09:37)
[2018-01-12] MEDS ORDERED: MELO7.5T5 PO (09:40)
[2018-01-12 09:49] LABS: BASO % 0.3 %; BASO ABS # 0.02 K/uL (0-0.2); EOS % 4.2 %; EOS ABS # 0.29 K/uL (0-0.5); HEMATOCRIT 39.3 % (42-52); HEMOGLOBIN 13.8 g/dL (14.0-18.0); IG# 0.02 K/uL (0.00-0.02); LYMPH % 24.1 %; LYMPH ABS # 1.66 K/uL (1.2-3.4); MEAN CELL VOLUME 87.1 fL (80-100); MEAN CORPUSCULAR HEMOGLOBIN 30.6 pg (25-34); MEAN CORPUSCULAR HGB CONC 35.1 g/dl (32-36); MEAN PLATELET VOLUME 9.4 fL (7.4-10.4); MONO % 8.3 %; MONO ABS # 0.57 K/uL (0.11-0.59); NEUT % 62.8 %; NEUT ABS # 4.32 K/uL (1.4-6.5); PLATELET COUNT 186 K/uL (130-400); RED CELL DISTRIBUTION WIDTH CV 14.6 % (11.5-14.5); RED CELL DISTRIBUTION WIDTH SD 46.8 fL (36.4-46.3); WHITE BLOOD COUNT 6.88 K/uL (4.8-10.8)
[2018-01-12] MEDS ORDERED: CLOP1TAB15 PO (09:52)
[2018-01-12] MEDS ORDERED: INSHI7030 SC (09:52)
[2018-01-12 09:56] LABS: INR 2.5 (0.9-1.1); PTT PATIENT 37.6 SECONDS (21.0-31.0)
[2018-01-12 10:11] LABS: ALBUMIN 3.4 gm/dl (3.4-5.0); CALCIUM 9.2 mg/dl (8.5-10.1); CREATININE 0.86 mg/dl (0.60-1.40); POTASSIUM 3.9 mmol/L (3.5-5.1)
[2018-01-12 10:21] LABS: TOTAL PROTEIN 8.5 gm/dl (6.4-8.2)
--- NOTE | 2018-01-12 10:42 | DIAGNOSTIC IMAGING REPORT ---
LEFT FOOT 3 VIEWS CLINICAL HISTORY: Left foot pain. Drainage. Recent fifth toe amputation. FINDINGS: 3 views of the left foot are compared to study dated 12/14/2017. The skeletal structures are heterogeneously osteopenic. No acute fracture is seen. There as been interval amputation of the fifth toe at the level of the distal metatarsal shaft. Again seen postoperative change from fusion at the first interphalangeal joint with a cortical lag screw transfixing the joint. The orthopedic hardware appears intact. Chronic posttraumatic deformity is seen in the distal shaft of the third and fourth metatarsals. No bony erosion or periostitis is identified. Pes planus is observed. Degenerative spurring is seen along the dorsal aspect of the tarsal bones. Mild soft tissue edema is seen throughout the foot. There is atherosclerotic calcification of the regional arteries. IMPRESSION: 1. Soft tissue swelling with no acute bony abnormality identified. 2. Osteopenia with degenerative, chronic posttraumatic, and postoperative changes as above. Electronically signed by: Ankush Osorio M.D. 01/12/2018 10:40 AM Dictated Date/Time: 01/12/2018 10:38 AM
[2018-01-12] MEDS ORDERED: ERTAPENEM 1 GM ADDVIAL IV ONE (12:15)
[2018-01-12] MEDS ORDERED: ERTAPENEM IV 1 GM in SODIUM CHLOR 0.9% AD-VAN 50ML IV ONE (12:30)
[2018-01-12] MEDS ORDERED: POLYETHYLENE (MIRALAX) 17 GM PACK PO PRN ×2 (14:00)
[2018-01-12] MEDS ORDERED: ACETAMINOPHEN 325 MG TAB PO PRN (14:00)
[2018-01-12] MEDS ORDERED: GLUCOSE 40% GEL 15 GM TUBE PO PRN (14:00)
[2018-01-12] MEDS ORDERED: ZOLPIDEM TARTRATE 5 MG TAB PO PRN ×2 (14:00)
[2018-01-12] MEDS ORDERED: VANCOMYCIN CONSULT ACTIVE PRN (14:00)
[2018-01-12] MEDS ORDERED: ONDANSETRON INJ 2 MG/ML 2 ML VIAL IV PRN (14:00)
[2018-01-12] MEDS ORDERED: ALUMINUM/MAGNESIUM/SIMETH (MAALOX MAX) 30 ML UDC PO PRN (14:00)
[2018-01-12] MEDS ORDERED: GLUCAGON FOR INJ 1 MG VIAL SQ PRN (14:00)
[2018-01-12] MEDS ORDERED: LEValbuterol HFA 15GM INHALER INH PRN (14:00)
[2018-01-12] MEDS ORDERED: MAGNESIUM HYDROXIDE SUSP 30 ML UDC PO PRN (14:00)
[2018-01-12] MEDS ORDERED: GLUCOSE 10 TABS/TUBE PO PRN (14:00)
[2018-01-12] MEDS ORDERED: DEXTROSE 50% 50 ML SYR IV PRN (14:00)
--- NOTE | 2018-01-12 14:50 | History and Physical ---
History & Physical Date & Time of Service: Jan 12, 2018 at 14:16 Chief Complaint: Left Foot Pain Primary Care Physician: Ashleigh ONTIVEROS History of Present Illness 57 years old man with pmhx of DMII on insulin, htn, copd, PAD s/p recent SFA HERMINIA stent , DVT in 2009 currently on coumadin, CAD, tobbaco dependence and recent fifth toe / 5th metatarsal head amputation for OM. patient presented from [facility] with left fourth toe discoloration and discharge from the previous wound on his left foot. Patient denies any fever or chills, said that he only had some bloody discharge coming from the wound of his previous surgery, also appears to have some dehiscence. Patient went to the [facility] nurse for wound change. He was told by the nurse of the [facility] that his wound looks infected, with discharge, also there is a discoloration in his fourth toe. He was sent to the ED for further evaluation. Patient discharged any significant pain in his foot or fever. 3 weeks ago he had a drug-eluting stent in his left SFA done by Dr. Freddy Mendez. He was supposed to be on aspirin and Plavix, patient stated that he ran out of his aspirin in [facility] about a week ago. He has not been taking his aspirin. He thinks he has been taking his Plavix but is not sure. He also has been taking his Coumadin and his INR is therapeutic. Patient is on Coumadin for a previous DVT in 2009. Past Medical/Surgical History Medical Problems: (1) COPD (chronic obstructive pulmonary disease) (2) Diabetes mellitus (3) Gangrene of left foot (4) Gangrene of toe of left foot (5) Hypertension (6) PVD (peripheral vascular disease) Family History Cancer Diabetes mellitus Hypertension Social History Smoking Status: Current Every Day Smoker Drug Use: none Marital Status: single Occupational Status: other Allergies Coded Allergies: Red Beet Powder (Verified Allergy, Intermediate, Beets - swells up, 12/17/17 ) NO KNOWN DRUG ALLERGIES (Verified Allergy, Unknown, ., 12/14/17) Home Medications Scheduled Acetaminophen (Tylenol), 1,000 MG PO TID Aspirin (Aspirin EC Low Dose), 81 MG PO DAILY Ciclesonide (Alvesco), 1 PUFF INH BID Cilostazol (Pletal), 100 MG PO BID Clopidogrel (Plavix), 75 MG PO DAILY Diclofenac Sod (Voltaren), 4 APPLN EXT Q6H Emollient Ointment (Hydrophor), 1 DOSE TOP BID Hydrochlorothiazide (Hctz), 25 MG PO QAM Insulin Human Isophan/Regular (Humulin 70/30), 25 UNITS SC QAM Insulin Human Isophan/Regular (Humulin 70/30), 30 UNITS SC QPM Irbesartan (Irbesartan), 1 TAB PO DAILY Meloxicam (Mobic), 7.5 MG PO HS Nortriptyline (Pamelor), 25 MG PO HS Rosuvastatin Calcium (Crestor), 1 TAB PO DAILY Sennosides-Docusate Sodium (Senokot S), 1 TAB PO BID Warfarin Sod (Coumadin), 10 MG PO HS Scheduled PRN Levalbuterol Tartrate (Levalbuterol Tartrate Hfa), 45 MCG INH TID PRN for PRN Polyethylene (Miralax), 17 GM PO DAILY PRN for Constipation Review of Systems Review of system Constitutional: No fever / no chills / no sweats / no weakness / no fatigue Eyes: no blurring of vision / no eye pain / no discharge / no redness ENT: no hearing loss / no epistaxis /no swallowing problems Respiratory: no cough / no wheezing / no SOB / no hemoptysis Cardiovascular: no Chest pain / no lower extremity edema / no palpitation Abdomen: no pain / no nausea / no vomiting / no constipation Musculoskeletal: Left foot pain /also had some bloody discharge from left foot wound, no muscle pain / no joint swelling Genitourinary: no dysuria / no incontinence / no urinary retention Neurologic: no focal weakness / no numbness/tingling / no ataxia Psychiatric: no depression symptoms / no anxiety / no insomnia Endocrine: no excessive thirst / no excessive urination Hematologic: no abnormal bleeding / no bruising / no LN swelling Skin: No rash / no pallor Physical Exam Vital Signs Date Time Temp Pulse Resp B/P (MAP) Pulse Ox O2 Delivery O2 Flow Rate FiO2 01/12/18 13:08 76 18 137/91 100 Room Air 01/12/18 11:19 85 18 119/77 100 Room Air 01/12/18 09:01 37.0 78 18 175/115 100 Room Air Physical examination General patient appears to be comfortable, not in acute distress HEENT: Atraumatic , normocephalic /no jaundice /no pallor /anicteric /no dry mucous membrane /normal external ear inspection Neck: Supple /no swelling /central trach Heart: S1/S2 normal/regular rate and rhythm/no gallop /no rub /no murmur Lungs: Clear to auscultation bilaterally/normal chest with expansion/no rhonchi/ no rales/no wheezing/no use of accessory muscles of respiration Abdomen: Soft/nontender/no guarding/no rebound/no organomegaly/no pulsatile mass Musculoskeletal: Left foot wound dehiscence, I could not appreciate discharge at the time of my exam. Left fourth toe appears slightly discolored. Neuro exam: Awake alert oriented 3/cranial nerves II through XII appear to be intact/sensation intact/moves all extremities/no abnormal movements Psychiatric evaluation: No depressed mood/normal affect Skin: No rash on exposed skin area/no erythema Extremity: Normal pulse/no pitting edema/no clubbing or cyanosis Endocrine/lymphatic: No obvious lymphadenopathy /no lymphedema Diagnostics Laboratory Results Results Past 24 Hours Test 01/12/18 09:34 01/12/18 09:40 01/12/18 13:56 Range/Units White Blood Count 6.88 4.8-10.8 K/uL Red Blood Count 4.51 4.7-6.1 M/uL Hemoglobin 13.8 14.0-18.0 g/dL Hematocrit 39.3 42-52 % Mean Corpuscular Volume 87.1 80-100 fL Mean Corpuscular Hemoglobin 30.6 25-34 pg Mean Corpuscular Hemoglobin Concent 35.1 32-36 g/dl Platelet Count 186 130-400 K/uL Mean Platelet Volume 9.4 7.4-10.4 fL Neutrophils (%) (Auto) 62.8 % Lymphocytes (%) (Auto) 24.1 % Monocytes (%) (Auto) 8.3 % Eosinophils (%) (Auto) 4.2 % Basophils (%) (Auto) 0.3 % Neutrophils # (Auto) 4.32 1.4-6.5 K/uL Lymphocytes # (Auto) 1.66 1.2-3.4 K/uL Monocytes # (Auto) 0.57 0.11-0.59 K/uL Eosinophils # (Auto) 0.29 0-0.5 K/uL Basophils # (Auto) 0.02 0-0.2 K/uL RDW Standard Deviation 46.8 36.4-46.3 fL RDW Coefficient of Variation 14.6 11.5-14.5 % Immature Granulocyte % (Auto) 0.3 % Immature Granulocyte # (Auto) 0.02 0.00-0.02 K/uL Prothrombin Time 25.7 9.0-12.0 SECONDS Prothromb Time International Ratio 2.5 0.9-1.1 Activated Partial Thromboplast Time 37.6 21.0-31.0 SECONDS Partial Thromboplastin Ratio 1.4 Sodium Level 136 136-145 mmol/L Potassium Level 3.9 3.5-5.1 mmol/L Chloride Level 100 98-107 mmol/L Carbon Dioxide Level 31 21-32 mmol/L Anion Gap 5.0 3-11 mmol/L Blood Urea Nitrogen 11 7-18 mg/dl Creatinine 0.86 0.60-1.40 mg/dl Est Creatinine Clear Calc Drug Dose 92.5 ml/min Estimated GFR () 110.0 Estimated GFR (Non- 94.9 BUN/Creatinine Ratio 12.3 10-20 Random Glucose 221 70-99 mg/dl Calcium Level 9.2 8.5-10.1 mg/dl Magnesium Level 1.5 1.8-2.4 mg/dl Total Bilirubin 0.4 0.2-1 mg/dl Direct Bilirubin 0.1 0-0.2 mg/dl Aspartate Amino Transf (AST/SGOT) 17 15-37 U/L Alanine Aminotransferase (ALT/SGPT) 42 12-78 U/L Alkaline Phosphatase 96 45-117 U/L Total Protein 8.5 6.4-8.2 gm/dl Albumin 3.4 3.4-5.0 gm/dl Thyroid Stimulating Hormone (TSH) 0.808 0.300-4.500 uIu/ml Bedside Lactic Acid Venous 1.68 0.90-1.70 mmol/L Microbiology Results 01/12/18 Blood Culture, Received Pending 01/12/18 Blood Culture, Received Pending 01/12/18 Gram Stain, Received Pending 01/12/18 Wound Culture, Received Pending Diagnostic Radiology LEFT FOOT 3 VIEWS CLINICAL HISTORY: Left foot pain. Drainage. Recent fifth toe amputation. FINDINGS: 3 views of the left foot are compared to study dated 12/14/2017. The skeletal structures are heterogeneously osteopenic. No acute fracture is seen. There as been interval amputation of the fifth toe at the level of the distal metatarsal shaft. Again seen postoperative change from fusion at the first interphalangeal joint with a cortical lag screw transfixing the joint. The orthopedic hardware appears intact. Chronic posttraumatic deformity is seen in the distal shaft of the third and fourth metatarsals. No bony erosion or periostitis is identified. Pes planus is observed. Degenerative spurring is seen along the dorsal aspect of the tarsal bones. Mild soft tissue edema is seen throughout the foot. There is atherosclerotic calcification of the regional arteries. IMPRESSION: 1. Soft tissue swelling with no acute bony abnormality identified. 2. Osteopenia with degenerative, chronic posttraumatic, and postoperative changes as above. Impression Assessment and Plan 57 years old man with pmhx of DMII on insulin, htn, copd, PAD s/p recent SFA HERMINIA stent , DVT in 2009 currently on coumadin, CAD, tobbaco dependence and recent fifth toe / 5th metatarsal head amputation for OM. patient [facility] from [facility] with left fourth toe discoloration and discharge from the previous wound on his left foot. Assessment recent fifth toe / 5th metatarsal head amputation for OM complicated by surgical wound dehiscence and infection Left fourth toe discoloration possible dry gangrene DMII on insulin Essential hypertension copd not in exacerbation PAD s/p recent SFA HERMINIA stent DVT in 2009 currently on coumadin CAD tobbaco dependence Plan Admit patient to telemetry Discussed with Dr. Garcia, will continue aspirin and Plavix due to the recent stent and SFA, will Place Coumadin on hold but will not reverse INR at this point, Dr. Garcia will evaluate him tomorrow and if his surgery is required then will reverse INR. We will repeat INR in a.m., please place patient on DVT prophylaxis if it falls below 2. Continue insulin 70/30 subcu but hold tonight's dose as patient will be n.p.o. from midnight Sliding scale insulin consult Dr. Mendez To reevaluate vascularization and recent stent Continue blood pressure medications Continue inhalers Hemoglobin A1C, 3 weeks ago was 7.5, LDL, 3 weeks ago was 57 Patient will need PT/OT after any surgical procedure Offered the patient the nicotine patch and he said what he will think about Resuscitation Status VTE Prophylaxis Will order VTE Prophylaxis: Yes
--- NOTE | 2018-01-12 15:14 | DIAGNOSTIC IMAGING REPORT ---
ULTRASOUND LEFT LOWER EXTREMITY ARTERIAL; ANKLE-BRACHIAL INDICES CLINICAL HISTORY: Black toes. COMPARISON STUDY: CT lower extremity runoff dated 12/16/2017. TECHNIQUE: Real-time, grayscale, and color Doppler sonography of the arteries of the left lower extremity is performed from the inguinal crease to the foot. Ankle-brachial indices were attempted. FINDINGS: Ankle-brachial indices: Ankle-brachial indices were attempted. Pressures in the posterior tibial and dorsalis pedis arteries bilaterally were greater than 255. The patient declined further assessment due to discomfort. Left lower extremity: There is advanced atherosclerotic plaque seen throughout the arteries of the left lower extremity. The common femoral artery is patent with normal triphasic arterial waveforms. Velocities in the left common femoral artery measure up to 75 cm/s. The profunda femoris artery is patent with velocities measuring up to 106 cm/s. A stent is present in the mid to distal superficial femoral artery and extending into the popliteal artery. The stent appears patent. Velocities within the proximal superficial femoral artery measure up to 171 cm/s. Velocities in the midportion measure up to 226 cm/s, and velocities distally measure up to 147 cm/s. Arterial waveforms are biphasic. There are biphasic waveforms in the popliteal artery with velocities measuring up to 155 cm/s. The anterior tibial and peroneal arteries appear patent to the calf. No flow is shown within the midportion of the posterior tibial artery, possibly related to dense atherosclerotic calcification. Velocities in the calf vessels measure up to 56 cm/s. The dorsalis pedis artery is patent with velocities measuring up to 32 cm/s. IMPRESSION: 1. Advanced atherosclerotic disease is present within the arteries of the left lower extremity. 2. A stent is present in the mid to distal superficial femoral artery and extending into the popliteal artery. The stent appears patent. 3. No flow was shown within the midportion of the posterior tibial artery, possibly related to densely calcified plaque. The calf arteries are otherwise patent as imaged. See above for velocity measurements. 4. Ankle-brachial indices could not be assessed. Dictated: 01/12/2018 2:49 PM Transcribed: 01/12/2018 3:14 PM [email or web address] Electronically signed by: Ankush Osorio M.D. 01/12/2018 3:26 PM Dictated Date/Time: 01/12/2018 2:49 PM
--- NOTE | 2018-01-12 15:24 | EMERGENCY ROOM VISIT NOTE ---
History Report prepared by Kimo: Demarcus Mix Under the Supervision of: Dr. Ajit Carter M.D. First contact with patient: 09:17 Chief Complaint: FOOT PAIN Stated Complaint: LEFT FOOT PAIN History of Present Illness The patient is a 57 year old male who presents to the Emergency Room with complaints of constant left foot pain that began recently. Patient states that there was drainage coming from his toes. Patient was discharged on December 22 due to gangrene and osteomyelitis of his left 5th metatarsal toe. Patient was found to have peripheral artery disease and a stent was performed. Patient was discharged on Augmentin. He states that the surgeon now wants to remove his 4th toe. Pertinent past medical history includes Diabetes for over 30 years. He states he uses insulin injections to control his diabetes. Patient adds that the injury to his toes began when he hit a "bunch of screws". Patient states that he has chronic knee pain. Pt denies LOC, headache, fevers, chills, diaphoresis, visual changes, neck pain, chest pain, breathing difficulties, nausea, vomiting, abdominal pain, back pain, melena, hematochezia, urinary symptoms, numbness, weakness, lymphadenopathy, rash, or other complaints. Source of History: patient Onset: Recent Position: toe(s) (4th toe on left foot) Timing: constant Modifying Factors (Relieving): other (None) Review of Systems See HPI for pertinent positives and negatives. A total of ten systems were reviewed and were otherwise negative. Past Medical & Surgical Medical Problems: (1) COPD (chronic obstructive pulmonary disease) (2) Diabetes mellitus (3) Gangrene of left foot (4) Hypertension (5) PVD (peripheral vascular disease) Family History Cancer Diabetes mellitus Hypertension Social History Smoking Status: Current Every Day Smoker Drug Use: none Marital Status: single Housing Status: other Occupation Status: other Current/Historical Medications Scheduled Acetaminophen (Tylenol), 1,000 MG PO TID Aspirin (Aspirin EC Low Dose), 81 MG PO DAILY Ciclesonide (Alvesco), 1 PUFF INH BID Cilostazol (Pletal), 100 MG PO BID Clopidogrel (Plavix), 75 MG PO DAILY Diclofenac Sod (Voltaren), 4 APPLN EXT Q6H Emollient Ointment (Hydrophor), 1 DOSE TOP BID Hydrochlorothiazide (Hctz), 25 MG PO QAM Insulin Human Isophan/Regular (Humulin 70/30), 25 UNITS SC QAM Insulin Human Isophan/Regular (Humulin 70/30), 30 UNITS SC QPM Irbesartan (Irbesartan), 1 TAB PO DAILY Meloxicam (Mobic), 7.5 MG PO HS Nortriptyline (Pamelor), 25 MG PO HS Rosuvastatin Calcium (Crestor), 1 TAB PO DAILY Sennosides-Docusate Sodium (Senokot S), 1 TAB PO BID Warfarin Sod (Coumadin), 10 MG PO HS Scheduled PRN Levalbuterol Tartrate (Levalbuterol Tartrate Hfa), 45 MCG INH TID PRN for PRN Polyethylene (Miralax), 17 GM PO DAILY PRN for Constipation Allergies Coded Allergies: Red Beet Powder (Verified Allergy, Intermediate, Beets - swells up, 12/17/17 ) NO KNOWN DRUG ALLERGIES (Verified Allergy, Unknown, ., 12/14/17) Physical Exam Vital Signs Date Time Temp Pulse Resp B/P (MAP) Pulse Ox O2 Delivery O2 Flow Rate FiO2 01/12/18 14:28 36.7 79 18 154/79 100 Room Air 01/12/18 13:08 76 18 137/91 100 Room Air 01/12/18 11:19 85 18 119/77 100 Room Air 01/12/18 09:01 37.0 78 18 175/115 100 Room Air Physical Exam GENERAL: Awake, alert, well-appearing, in no distress HENT: Normocephalic, atraumatic. Oropharynx unremarkable. EYES: Normal conjunctiva. Sclera non-icteric. NECK: Supple. No nuchal rigidity. FROM. No masses. RESPIRATORY: Clear to auscultation. No wheezes. No rales. Normal respiratory effort. CARDIAC: Normal rate. Normal rhythm. No murmurs. No rubs. Extremities warm and well perfused. Pulses equal. No JVD. GI: Soft, non-distended. No tenderness to palpation. No rebound or guarding. No masses. RECTAL: Deferred. MUSCULOSKELETAL: Atraumatic. Chest examination reveals no tenderness. The back is symmetrical on inspection without obvious abnormality. There is no CVA tenderness to palpation. No joint edema. LOWER EXTREMITIES: Left foot surgery site is tender, moist, and showed scant drainage. Left fifth toe is surgically absent. Healing ulcers noted on the sole of the foot. Black appearance and tenderness to the 4th toe. Calves are equal size bilaterally and non-tender. No edema. NEURO: Normal sensorium. No sensory or motor deficits noted. SKIN: No rash or jaundice noted. Medical Decision & Procedures ER Provider Diagnostic Interpretation: Radiology results as stated below per my review and radiologist interpretation: LEFT FOOT 3 VIEWS CLINICAL HISTORY: Left foot pain. Drainage. Recent fifth toe amputation. FINDINGS: 3 views of the left foot are compared to study dated 12/14/2017. The skeletal structures are heterogeneously osteopenic. No acute fracture is seen. There as been interval amputation of the fifth toe at the level of the distal metatarsal shaft. Again seen postoperative change from fusion at the first interphalangeal joint with a cortical lag screw transfixing the joint. The orthopedic hardware appears intact. Chronic posttraumatic deformity is seen in the distal shaft of the third and fourth metatarsals. No bony erosion or periostitis is identified. Pes planus is observed. Degenerative spurring is seen along the dorsal aspect of the tarsal bones. Mild soft tissue edema is seen throughout the foot. There is atherosclerotic calcification of the regional arteries. IMPRESSION: 1. Soft tissue swelling with no acute bony abnormality identified. 2. Osteopenia with degenerative, chronic posttraumatic, and postoperative changes as above. Electronically signed by: Ankush Osorio M.D. 01/12/2018 10:40 AM Laboratory Results 01/12/18 09:34 Red Blood Count 4.51, Mean Corpuscular Volume 87.1, Mean Corpuscular Hemoglobin 30.6, Mean Corpuscular Hemoglobin Concent 35.1, Mean Platelet Volume 9.4, Neutrophils (%) (Auto) 62.8, Lymphocytes (%) (Auto) 24.1, Monocytes (%) (Auto) 8.3, Eosinophils (%) (Auto) 4.2, Basophils (%) (Auto) 0.3, Neutrophils # (Auto) 4.32, Lymphocytes # (Auto) 1.66, Monocytes # (Auto) 0.57, Eosinophils # (Auto) 0.29, Basophils # (Auto) 0.02 01/12/18 09:34 Test 01/12/18 09:34 01/12/18 09:40 White Blood Count 6.88 K/uL (4.8-10.8) Red Blood Count 4.51 M/uL (4.7-6.1) Hemoglobin 13.8 g/dL (14.0-18.0) Hematocrit 39.3 % (42-52) Mean Corpuscular Volume 87.1 fL (80-100) Mean Corpuscular Hemoglobin 30.6 pg (25-34) Mean Corpuscular Hemoglobin Concent 35.1 g/dl (32-36) Platelet Count 186 K/uL (130-400) Mean Platelet Volume 9.4 fL (7.4-10.4) Neutrophils (%) (Auto) 62.8 % Lymphocytes (%) (Auto) 24.1 % Monocytes (%) (Auto) 8.3 % Eosinophils (%) (Auto) 4.2 % Basophils (%) (Auto) 0.3 % Neutrophils # (Auto) 4.32 K/uL (1.4-6.5) Lymphocytes # (Auto) 1.66 K/uL (1.2-3.4) Monocytes # (Auto) 0.57 K/uL (0.11-0.59) Eosinophils # (Auto) 0.29 K/uL (0-0.5) Basophils # (Auto) 0.02 K/uL (0-0.2) RDW Standard Deviation 46.8 fL (36.4-46.3) RDW Coefficient of Variation 14.6 % (11.5-14.5) Immature Granulocyte % (Auto) 0.3 % Immature Granulocyte # (Auto) 0.02 K/uL (0.00-0.02) Erythrocyte Sedimentation Rate 85 mm/hr (0-14) Prothrombin Time 25.7 SECONDS (9.0-12.0) Prothromb Time International Ratio 2.5 (0.9-1.1) Activated Partial Thromboplast Time 37.6 SECONDS (21.0-31.0) Partial Thromboplastin Ratio 1.4 Anion Gap 5.0 mmol/L (3-11) Est Creatinine Clear Calc Drug Dose 92.5 ml/min Estimated GFR () 110.0 Estimated GFR (Non- 94.9 BUN/Creatinine Ratio 12.3 (10-20) Calcium Level 9.2 mg/dl (8.5-10.1) Magnesium Level 1.5 mg/dl (1.8-2.4) Total Bilirubin 0.4 mg/dl (0.2-1) Direct Bilirubin 0.1 mg/dl (0-0.2) Aspartate Amino Transf (AST/SGOT) 17 U/L (15-37) Alanine Aminotransferase (ALT/SGPT) 42 U/L (12-78) Alkaline Phosphatase 96 U/L (45-117) Total Protein 8.5 gm/dl (6.4-8.2) Albumin 3.4 gm/dl (3.4-5.0) Thyroid Stimulating Hormone (TSH) 0.808 uIu/ml (0.300-4.500) Bedside Lactic Acid Venous 1.68 mmol/L (0.90-1.70) Laboratory results reviewed by me Medications Administered Medications (Trade) Dose Ordered Sig/Ivelisse Route Start Time Stop Time Status Last Admin Dose Admin Ertapenem 1 gm/ Sodium Chloride 50 ml @ 100 mls/hr ONE ONCE IV 01/12/18 12:30 01/12/18 12:59 DC 01/12/18 12:31 100 MLS/HR ED Course 0945: The patient was evaluated in room A2. A complete history and physical exam was performed. 1212: I talked to Dr. Garcia and put into a call to vascular surgery. 1230: Ertapenem 1gm/Sodium Chloride 50 ml @ 100 mls/hr IV 1238: I reassessed the patient who is resting comfortably. 1343: Upon reexamination, the patient will be further evaluated. I discussed the test results and treatment plan with Dr. Calvillo. The patient will be evaluated for further management. Medical Decision Triage Nursing notes reviewed. The patient's presentation and history were concerning for possible ischemia of the foot and wound infection. Etiologies such as ischemia, infection, trauma, idiopathic, as well as others were entertained. The patient was evaluated. He had some drainage from the surgical site and had tenderness. X-ray imaging did not reveal any findings to suggest necrotizing fasciitis. The patient has an ischemic appearance to the left fourth toe. Blood work was obtained and was unremarkable. The patient was given a dose of IV Invanz. Consultation was made with his orthopedic surgeon, Dr. Garcia. I also discussed the case with his head of visual merchandising Dr. Mendez. The patient will be brought into the hospital under the medicine service and further testing will be done. A arterial duplex was ordered for the patient's lower extremity. He was reassessed and was comfortable. He was evaluated by the hospitalist service in the ER for further management. Medication Reconcilliation Current Medication List: was personally reviewed by me Blood Pressure Screening Patient's blood pressure: Elevated blood pressure Blood pressure disposition: Referred to PCP Consults Time Called: 1210 Consulting Physician: Dr. Garcia - KRISHNA Returned Call: 1212 Discussed the patient's case. Dr. Garcia suggests IV antibiotics and medical admission to the the progressive results. Additional Consults: Time Called: 1215 Consulted Physician: Dr. Andrea Pereira [facility] Inventricular [employer] Applications Specialist Returned Call: 1216 Additional Comments: Discussed the patient's case. The patient will be evaluated for further treatment and disposition. Impression Primary Impression: Left foot infection Additional Impression: Ischemic left 4th toe Scribe Attestation The scribe's documentation has been prepared under my direction and personally reviewed by me in its entirety. I confirm that the note above accurately reflects all work, treatment, procedures, and medical decision making performed by me. Departure Information Dispostion Being Evaluated By Hospitalist Referrals Ashleigh ONTIVEROS (PCP) Forms HOME CARE DOCUMENTATION FORM, IMPORTANT VISIT INFORMATION Patient Instructions My [facility] Problem Qualifiers
[2018-01-12 16:30] VITALS: BP 182/88; PULSE 85; TEMP 37; O2SAT 96
[2018-01-12] MEDS ORDERED: NURSING VERBAL MED ORDER ONE (18:00)
[2018-01-12] MEDS: SODIUM CHLORIDE 0.9% 1000ML 1,000 ML IV SCH (18:30)
[2018-01-12] MEDS: IMIPENEM/CILASTATIN IV 500 MG in DEXTROSE 5% 100ML 100 ML IV SCH ×2 (18:30→23:26)
[2018-01-12] MEDS: DICLOFENAC SOD 1% GEL 100 GM TUBE EXT SCH ×2 (18:32→23:45)
[2018-01-12] MEDS: LACTOBACILLUS ACIDOPHILUS (FLORANEX) TAB PO SCH (18:35)
[2018-01-12] MEDS: MAGNESIUM OXIDE 400 MG TAB PO SCH (18:35)
[2018-01-12] MEDS: TRAMADOL HCL 50 MG TAB PO PRN (18:40)
[2018-01-12] MEDS ORDERED: VANCOMYCIN IV 2,000 MG in SODIUM CHLORIDE 0.9% 500ML 500 ML IV SCH (19:00)
[2018-01-12] MEDS: CILOSTAZOL 100 MG TAB PO SCH (19:58)
[2018-01-12] MEDS: NORTRIPTYLINE HCL 25 MG CAP PO SCH (19:58)
[2018-01-12] MEDS: ACETAMINOPHEN 500 MG TAB PO SCH (19:59)
[2018-01-12] MEDS: DOCUSATE SODIUM/SENNA 50/8.6MG TAB PO SCH (19:59)
[2018-01-12 20:00] VITALS: O2SAT 96
[2018-01-12] MEDS: HYDROCHLOROTHIAZIDE 25 MG TAB PO SCH (20:05)
[2018-01-12 20:30] VITALS: BP 182/88; PULSE 85; TEMP 37; O2SAT 96; BMI 27.2
[2018-01-12] MEDS ORDERED: MELOXICAM 7.5 MG TAB PO SCH (21:00)
--- NOTE | 2018-01-12 21:09 | Pharmacy Progress Note ---
Pharmacy Antibiotic Consult Date of Service: Jan 12, 2018. Pharmacy Dosing Scope Pharmacy is consulted to initiate vancomycin IV dosing therapy, order appropriate labs and adjust drug dose/frequency. Subjective The patient is a 57 year old male admitted on Jan 12, 2018 at 14:51 with left foot/left 4th toe infection, possible dry gangrene. Diabetic pt with hx of osteo , recent 5th toe amputation. Objective Height (Feet): 5 Height (Inches): 9.00 Weight (Kilograms): 83.700 Lab Results (24hrs): Test 01/12/18 09:34 01/12/18 09:40 01/12/18 17:21 01/12/18 20:27 White Blood Count 6.88 K/uL (4.8-10.8) Red Blood Count 4.51 M/uL (4.7-6.1) Hemoglobin 13.8 g/dL (14.0-18.0) Hematocrit 39.3 % (42-52) Mean Corpuscular Volume 87.1 fL (80-100) Mean Corpuscular Hemoglobin 30.6 pg (25-34) Mean Corpuscular Hemoglobin Concent 35.1 g/dl (32-36) Platelet Count 186 K/uL (130-400) Mean Platelet Volume 9.4 fL (7.4-10.4) Neutrophils (%) (Auto) 62.8 % Lymphocytes (%) (Auto) 24.1 % Monocytes (%) (Auto) 8.3 % Eosinophils (%) (Auto) 4.2 % Basophils (%) (Auto) 0.3 % Neutrophils # (Auto) 4.32 K/uL (1.4-6.5) Lymphocytes # (Auto) 1.66 K/uL (1.2-3.4) Monocytes # (Auto) 0.57 K/uL (0.11-0.59) Eosinophils # (Auto) 0.29 K/uL (0-0.5) Basophils # (Auto) 0.02 K/uL (0-0.2) RDW Standard Deviation 46.8 fL (36.4-46.3) RDW Coefficient of Variation 14.6 % (11.5-14.5) Immature Granulocyte % (Auto) 0.3 % Immature Granulocyte # (Auto) 0.02 K/uL (0.00-0.02) Erythrocyte Sedimentation Rate 85 mm/hr (0-14) Prothrombin Time 25.7 SECONDS (9.0-12.0) Prothromb Time International Ratio 2.5 (0.9-1.1) Activated Partial Thromboplast Time 37.6 SECONDS (21.0-31.0) Partial Thromboplastin Ratio 1.4 Sodium Level 136 mmol/L (136-145) Potassium Level 3.9 mmol/L (3.5-5.1) Chloride Level 100 mmol/L (98-107) Carbon Dioxide Level 31 mmol/L (21-32) Anion Gap 5.0 mmol/L (3-11) Blood Urea Nitrogen 11 mg/dl (7-18) Creatinine 0.86 mg/dl (0.60-1.40) Est Creatinine Clear Calc Drug Dose 92.5 ml/min Estimated GFR () 110.0 Estimated GFR (Non- 94.9 BUN/Creatinine Ratio 12.3 (10-20) Random Glucose 221 mg/dl (70-99) Calcium Level 9.2 mg/dl (8.5-10.1) Magnesium Level 1.5 mg/dl (1.8-2.4) Total Bilirubin 0.4 mg/dl (0.2-1) Direct Bilirubin 0.1 mg/dl (0-0.2) Aspartate Amino Transf (AST/SGOT) 17 U/L (15-37) Alanine Aminotransferase (ALT/SGPT) 42 U/L (12-78) Alkaline Phosphatase 96 U/L (45-117) C-Reactive Protein 0.32 mg/dl (0-0.29) Total Protein 8.5 gm/dl (6.4-8.2) Albumin 3.4 gm/dl (3.4-5.0) Thyroid Stimulating Hormone (TSH) 0.808 uIu/ml (0.300-4.500) Bedside Lactic Acid Venous 1.68 mmol/L (0.90-1.70) Bedside Glucose 81 mg/dl (70-99) 208 mg/dl (70-99) Micro Results: Blood cx x 2 and drainage from wound are pending. Recent Pertinent Medications Primaxin 500mg IV q 6h also ordered. Assessment & Plan Vancomycin: Loading dose: 2000mg mg IV X 1 dose (~24mg/kg) then: 1250 mg IV every 10 hours. Goal trough level estimate: between 15 - 20 mcg/mL. Peak and trough or random level has been ordered for: 01/14 prior to 0200 dose. Pharmacy will continue to follow and will adjust dose/frequency as necessary. Thank you
[2018-01-12] MEDS: INSULIN ASPART 100 UNITS/ML 3 ML PEN SC SCH (21:36)
[2018-01-12] MEDS: HYDROPHOR OINT 100 GM JAR EXT SCH (21:37)
[2018-01-12 23:40] VITALS: BP 147/69; PULSE 82; TEMP 36.8; O2SAT 97
[2018-01-13] VITALS (8 sets, daily range): BP systolic 148–173; BP diastolic 70–91; PULSE 72–94; TEMP 36.7–36.8; O2SAT 96–100; Ht 175.3 cm; Wt 86.7 kg
[2018-01-13] MEDS: IMIPENEM/CILASTATIN IV 500 MG in DEXTROSE 5% 100ML 100 ML IV SCH ×3 (05:42→18:49)
[2018-01-13 05:55] LABS: BASO % 0.3 %; BASO ABS # 0.02 K/uL (0-0.2); EOS % 4.6 %; EOS ABS # 0.31 K/uL (0-0.5); HEMATOCRIT 34.4 % (42-52); HEMOGLOBIN 12.1 g/dL (14.0-18.0); IG# 0.02 K/uL (0.00-0.02); LYMPH % 31.3 %; LYMPH ABS # 2.12 K/uL (1.2-3.4); MEAN CELL VOLUME 86.4 fL (80-100); MEAN CORPUSCULAR HEMOGLOBIN 30.4 pg (25-34); MEAN CORPUSCULAR HGB CONC 35.2 g/dl (32-36); MEAN PLATELET VOLUME 9.2 fL (7.4-10.4); MONO % 8.9 %; NEUT % 54.6 %; PLATELET COUNT 154 K/uL (130-400); RED CELL DISTRIBUTION WIDTH CV 14.5 % (11.5-14.5); RED CELL DISTRIBUTION WIDTH SD 45.7 fL (36.4-46.3); WHITE BLOOD COUNT 6.77 K/uL (4.8-10.8)
[2018-01-13] MEDS: DICLOFENAC SOD 1% GEL 100 GM TUBE EXT SCH ×3 (06:00→17:13)
[2018-01-13 06:06] LABS: INR 1.9 (0.9-1.1)
[2018-01-13 06:25] LABS: ALBUMIN 2.9 gm/dl (3.4-5.0); CALCIUM 8.6 mg/dl (8.5-10.1); CREATININE 0.83 mg/dl (0.60-1.40); POTASSIUM 4.3 mmol/L (3.5-5.1)
[2018-01-13 06:28] LABS: TOTAL PROTEIN 7.1 gm/dl (6.4-8.2)
[2018-01-13] MEDS: VANCOMYCIN IV 1,250 MG in SODIUM CHLORIDE 0.9% 250ML 250 ML IV SCH ×2 (06:40→15:57)
[2018-01-13] MEDS: INSULIN 70% ASPART PROTAMINE/30% ASPART SC SCH ×2 (07:30→17:11)
[2018-01-13] MEDS: LACTOBACILLUS ACIDOPHILUS (FLORANEX) TAB PO SCH ×3 (08:05→15:53)
[2018-01-13] MEDS: MAGNESIUM SULFATE 1GM / D5W 100 ML IV SCH ×2 (08:05→09:22)
[2018-01-13] MEDS: IRBESARTAN 150 MG TAB PO SCH (08:06)
[2018-01-13] MEDS: CLOPIDOGREL BISULFATE 75 MG TAB PO SCH (08:06)
[2018-01-13] MEDS: ROSUVASTATIN CALCIUM 20 MG TAB PO SCH (08:06)
[2018-01-13] MEDS: ASPIRIN 81 MG ECTAB PO SCH (08:06)
[2018-01-13] MEDS: DOCUSATE SODIUM/SENNA 50/8.6MG TAB PO SCH ×2 (08:07→20:42)
[2018-01-13] MEDS: ACETAMINOPHEN 500 MG TAB PO SCH ×3 (08:07→20:43)
[2018-01-13] MEDS: HYDROPHOR OINT 100 GM JAR EXT SCH ×2 (08:08→20:46)
[2018-01-13] MEDS: INSULIN ASPART 100 UNITS/ML 3 ML PEN SC SCH ×4 (08:10→20:44)
--- NOTE | 2018-01-13 08:28 | Hospitalist Progress Note ---
Hospitalist Progress Note Date of Service Jan 13, 2018. (Fransisca Pritchett PA-C) Subjective Pt evaluation today including: conversation w/ patient, physical exam, chart review, lab review, review of studies, conversation w/ business travel consultant (Orthopedics) Pain: None PO Intake: NPO Voiding: no voiding problems The patient was seen and examined this morning. Pt reports doing well today and that he "isn't in a hurry for surgery at this point". Pt reports no associated pain with the left foot, nor drainage or increased redness. He notes that he has been compliant with no weight bearing to the left foot since his surgical procedure. Pt denies any fever, chills or sweat. Orthopedics discussed plan at bedside and will have Dr. Radha rascon later this afternoon, no plan for surgery today. Pt admits to smoking at least 1/2 ppd cigarettes since age 8, and has no intention of cessation. Nicotine patch was offered but he declines at this time. Constitutional: No fever, No chills, No sweats Eyes: No redness, No diplopia ENT: No nasal symptoms, No trouble swallowing Respiratory: + cough, No sputum, No shortness of breath, No dyspnea on exertion Cardiovascular: No chest pain, No palpitations Abdomen: No pain, No nausea, No vomiting, No diarrhea, No constipation Musculoskeletal: + see HPI, No joint pain, No swelling Male : No dysuria Neurologic: No weakness, No numbness/tingling Psychiatric: No depression symptoms, No anxiety Skin: No rash, No itch (Fransisca Pritchett, JUVENTINO) Objective Vital Signs Date Time Temp Pulse Resp B/P (MAP) Pulse Ox O2 Delivery O2 Flow Rate FiO2 01/13/18 07:28 36.8 84 18 164/79 (107) 97 Room Air 01/13/18 04:05 97 Room Air 01/13/18 03:38 36.7 72 18 155/70 (98) 99 Room Air 01/13/18 00:00 97 Room Air 01/12/18 23:40 36.8 82 16 147/69 (95) 97 Room Air 01/12/18 20:30 37.0 85 20 182/88 96 Room Air 01/12/18 20:00 96 Room Air 01/12/18 16:30 37.0 85 20 182/88 (119) 96 Room Air 01/12/18 16:13 83 188/79 97 01/12/18 15:25 81 20 187/94 100 Room Air 01/12/18 14:28 36.7 79 18 154/79 100 Room Air 01/12/18 13:08 76 18 137/91 100 Room Air 01/12/18 11:19 85 18 119/77 100 Room Air 01/12/18 09:01 37.0 78 18 175/115 100 Room Air (Fransisca Pritchett, ANDRYC) Physical Exam General Appearance: WD/WN, no apparent distress, + pertinent finding ( ) Eyes: PERRL, EOMI ENT: hearing grossly normal, pharynx normal, + pertinent finding (MMM, poor dentition) Respiratory/Chest: lungs clear, no respiratory distress, no accessory muscle use, + wheezing (few expiratory throughout), + pertinent finding (on RA) Cardiovascular: regular rate, rhythm, no murmur Abdomen: normal bowel sounds, non tender, soft Extremities: non-tender, no pedal edema, no calf tenderness, + pertinent finding (LLE with lateral surgical site appears dry, no drainage, surrounding darkened skin region, + dehiscense of sutures s/p 5th toe amputation. RLE with multiple ulcerations on great toe, and multiple metatarsal heads with serosanginous drainage. No surrounding erythema or edema.) Neurologic/Psychiatric: alert, normal mood/affect, oriented x 3 Skin: normal color, warm/dry, + pertinent finding (see Extremity exam.) (Fransisca Pritchett, ANDRYC) Laboratory Results Last 24 Hours Test 01/12/18 09:34 01/12/18 09:40 01/12/18 17:21 01/12/18 20:27 White Blood Count 6.88 K/uL Red Blood Count 4.51 M/uL Hemoglobin 13.8 g/dL Hematocrit 39.3 % Mean Corpuscular Volume 87.1 fL Mean Corpuscular Hemoglobin 30.6 pg Mean Corpuscular Hemoglobin Concent 35.1 g/dl Platelet Count 186 K/uL Mean Platelet Volume 9.4 fL Neutrophils (%) (Auto) 62.8 % Lymphocytes (%) (Auto) 24.1 % Monocytes (%) (Auto) 8.3 % Eosinophils (%) (Auto) 4.2 % Basophils (%) (Auto) 0.3 % Neutrophils # (Auto) 4.32 K/uL Lymphocytes # (Auto) 1.66 K/uL Monocytes # (Auto) 0.57 K/uL Eosinophils # (Auto) 0.29 K/uL Basophils # (Auto) 0.02 K/uL RDW Standard Deviation 46.8 fL RDW Coefficient of Variation 14.6 % Immature Granulocyte % (Auto) 0.3 % Immature Granulocyte # (Auto) 0.02 K/uL Erythrocyte Sedimentation Rate 85 mm/hr Prothrombin Time 25.7 SECONDS Prothromb Time International Ratio 2.5 Activated Partial Thromboplast Time 37.6 SECONDS Partial Thromboplastin Ratio 1.4 Sodium Level 136 mmol/L Potassium Level 3.9 mmol/L Chloride Level 100 mmol/L Carbon Dioxide Level 31 mmol/L Anion Gap 5.0 mmol/L Blood Urea Nitrogen 11 mg/dl Creatinine 0.86 mg/dl Est Creatinine Clear Calc Drug Dose 92.5 ml/min Estimated GFR () 110.0 Estimated GFR (Non- 94.9 BUN/Creatinine Ratio 12.3 Random Glucose 221 mg/dl Calcium Level 9.2 mg/dl Magnesium Level 1.5 mg/dl Total Bilirubin 0.4 mg/dl Direct Bilirubin 0.1 mg/dl Aspartate Amino Transf (AST/SGOT) 17 U/L Alanine Aminotransferase (ALT/SGPT) 42 U/L Alkaline Phosphatase 96 U/L C-Reactive Protein 0.32 mg/dl Total Protein 8.5 gm/dl Albumin 3.4 gm/dl Thyroid Stimulating Hormone (TSH) 0.808 uIu/ml Bedside Lactic Acid Venous 1.68 mmol/L Bedside Glucose 81 mg/dl 208 mg/dl Test 01/13/18 05:43 01/13/18 06:53 White Blood Count 6.77 K/uL Red Blood Count 3.98 M/uL Hemoglobin 12.1 g/dL Hematocrit 34.4 % Mean Corpuscular Volume 86.4 fL Mean Corpuscular Hemoglobin 30.4 pg Mean Corpuscular Hemoglobin Concent 35.2 g/dl Platelet Count 154 K/uL Mean Platelet Volume 9.2 fL Neutrophils (%) (Auto) 54.6 % Lymphocytes (%) (Auto) 31.3 % Monocytes (%) (Auto) 8.9 % Eosinophils (%) (Auto) 4.6 % Basophils (%) (Auto) 0.3 % Neutrophils # (Auto) 3.70 K/uL Lymphocytes # (Auto) 2.12 K/uL Monocytes # (Auto) 0.60 K/uL Eosinophils # (Auto) 0.31 K/uL Basophils # (Auto) 0.02 K/uL RDW Standard Deviation 45.7 fL RDW Coefficient of Variation 14.5 % Immature Granulocyte % (Auto) 0.3 % Immature Granulocyte # (Auto) 0.02 K/uL Prothrombin Time 19.2 SECONDS Prothromb Time International Ratio 1.9 Sodium Level 136 mmol/L Potassium Level 4.3 mmol/L Chloride Level 101 mmol/L Carbon Dioxide Level 30 mmol/L Anion Gap 5.0 mmol/L Blood Urea Nitrogen 12 mg/dl Creatinine 0.83 mg/dl Est Creatinine Clear Calc Drug Dose 95.9 ml/min Estimated GFR () 111.6 Estimated GFR (Non- 96.3 BUN/Creatinine Ratio 14.3 Random Glucose 152 mg/dl Lactic Acid Level 0.8 mmol/L Calcium Level 8.6 mg/dl Magnesium Level 1.5 mg/dl Total Bilirubin 0.5 mg/dl Aspartate Amino Transf (AST/SGOT) 19 U/L Alanine Aminotransferase (ALT/SGPT) 35 U/L Alkaline Phosphatase 83 U/L Total Protein 7.1 gm/dl Albumin 2.9 gm/dl Globulin 4.2 gm/dl Albumin/Globulin Ratio 0.7 Bedside Glucose 179 mg/dl (Fransisca Pritchett, PARasta) Assessment and Plan 57 yo M with pmhx of DMII on insulin, htn, copd, PAD s/p recent SFA HERMINIA stent , DVT in 2009 currently on coumadin, CAD, tobbaco dependence and recent fifth toe / 5th metatarsal head amputation for OM. [facility] with Left fourth toe discoloration and discharge from the previous wound on his left foot. 5th metatarsal head amp for OM with surgical wound dehiscence and infection Left fourth toe discoloration possible dry gangrene - Ortho on board- Dr. Garcia, will continue aspirin and Plavix due to the recent stent and SFA, will Place Coumadin on hold but will not reverse INR at this point Possible surgery tomorrow, none planned for today so will allow diet. - ID on board- appreciate recs: continue empiric antibiotics with imipenem ( started 01/12) at this time pending cultures. - Repeat INR= 1.9 - Will need PT/OT after surg - currently NWB to LLE Hypomagnesemia - Replaced this morning w/ 1 g IV DMII on insulin - Continue insulin 70/30 subcu but hold tonight's dose as patient will be n.p.o. from midnight - ISS with accuchecks - Hemoglobin A1C= 7.5 about 3 weeks ago Essential hypertension CAD PAD s/p recent SFA HERMINIA stent DVT in 2009 currently on coumadin - Cardiology consult- Dr. Mendez To reevaluate vascularization and recent stent - Continue asa 81 mg, plavix, pletal 100 mg BID, HCTZ 25 mg QAM Copd not in exacerbation tobbacco dependence - Stable - Cessation encouraged at bedside - pt refuses nicotine patch today. - cont inhalers DVT ppx: teds, scds, hold chemical anticoagulation in light of possible surgery CODE: FULL Disposition: From [facility], hi there after surgical procedure which may be scheduled for tomorrow. (Fransisca Pritchett PA-C) Reviewed: Pt Seen/Exam by Me (Laurita Box MD) History Physician Purchasing Clerk supervision Note: I interviewed and examined the patient. Discussed with CARY Pritchett and agree with findings and plan as documented in the note. Any exceptions or clarifications are listed here: Patient reports some pain in the left foot. No diarrhea. Vitals reviewed, telemetry with normal sinus rhythm, some PACs and bigeminy Gen: AAOx3, NAD HEENT: anicteric sclerae, EOMI CV: RRR with some ectopy, no mgr nl S1S2 Pulm: Diminished breath sounds throughout, no wcr Ext: no edema, left foot with dressing in place, fourth toe with dry gangrene, previous incision site is slightly open, no drainage This patient is a 57-year-old male with a history of recent left fifth toe gangrene with osteomyelitis status post amputation, severe PAD status post left SFA drug-eluting balloon angioplasty with stent, DM 2, COPD, HTN, CAD, history of DVT on long-term anticoagulation, dyslipidemia, and tobacco abuse/current smoker, here with probable wound infection of previous amputation site, and fourth toe on the left foot with dry gangrene. ESR is elevated at 85. No evidence for osteomyelitis on x-ray of the foot. -Continue on imipenem and vancomycin as per infectious disease consultation -Check ESR and CRP in the morning -Appreciate orthopedics consult-may end up needing trans-metatarsal amputation -Appreciate cardiology consultation-stent is patent and has severe small vessel peripheral arterial disease more distally that cannot be intervened upon -As per previous discharge instructions, he was to only be on Plavix along with his Coumadin for 30 days, and then switched to aspirin 81 mg daily along with Coumadin and stop the Plavix-this is in an effort to avoid triple therapy -However, as Coumadin on hold for possible surgery, will go ahead and continue aspirin and Plavix together now -Okay to continue insulin this evening for hyperglycemia Documented By: Laurita Box (Laurita Box MD)
[2018-01-13] MEDS: CILOSTAZOL 100 MG TAB PO SCH ×2 (09:55→20:43)
[2018-01-13] MEDS: HYDROCHLOROTHIAZIDE 25 MG TAB PO SCH (09:55)
[2018-01-13] MEDS: MAGNESIUM OXIDE 400 MG TAB PO SCH (09:55)
--- NOTE | 2018-01-13 10:52 | Progress Note ---
Progress Note Date of Service Jan 13, 2018. Progress Note ID Consult Dictated #[id number] A/P: 1. Gangrene foot -Continue abx, await surgical plan -follow cultures, thank you
--- NOTE | 2018-01-13 11:07 | INFECT. DISEASE CONSULTATION ---
DATE OF CONSULTATION: 01/13/2018 HISTORY OF PRESENT ILLNESS: This is a 57-year-old gentleman who was admitted from a local retirement secondary to worsening wound gangrene. He recently had a fifth toe metatarsal amputation for underlying infection and a stent was placed 3 weeks ago in the left lower extremity. Apparently he was discharged on Plavix and aspirin, but has not been taking his aspirin as prescribed. He was readmitted with discoloration of the fourth toe and drainage from the wound. He has had significant wound dehiscence. Currently, there is no drainage on my examination. He denies any fevers or chills. He denies any pain in the foot. He denies any bleeding or drainage. He denies any trauma to the area. He has not been on antibiotics. Blood cultures were obtained and the urine are pending. He does not have a leukocytosis; however, his sed rate is elevated at 85. He has been afebrile since admission. He was placed empirically on vancomycin and imipenem and he is tolerating these. A wound culture was obtained in the ER and has rare GPCs. I did speak with orthopedic surgery and he is currently n.p.o. for either debridement or potential amputation. His remaining review of systems is unremarkable. PAST MEDICAL HISTORY: Significant for COPD, type 2 diabetes, gangrene, hypertension, and peripheral vascular disease. PAST SURGICAL HISTORY: Significant for partial foot amputation and recent stenting. FAMILY HISTORY: Noncontributory. SOCIAL HISTORY: Significant for daily tobacco use. He currently is incarcerated. ALLERGIES: He has no known drug allergies. CURRENT MEDICATIONS: Insulin, hydrochlorothiazide, Crestor, Avapro, aspirin, Plavix, vancomycin, Tylenol, Pletal, nortriptyline, Senokot, Voltaren gel, magnesium, imipenem, Ultram, Floranex, Xopenex, MiraLax, Maalox, milk of magnesia, Ambien. PHYSICAL EXAMINATION: VITAL SIGNS: He is afebrile, pulse 84, respiratory rate 18, blood pressure 164/79, oxygen saturation is 97% on room air. GENERAL: He is awake, alert and oriented x3. He is in no acute distress. HEENT: Mucous membranes are moist. Extraocular muscles are intact. HEART: Regular. LUNGS: Clear. ABDOMEN: Soft. There is no edema. EXTREMITIES: There are significant gangrenous changes of the left foot. There is a wound dehiscence, but no bleeding or drainage. There is no warmth or tenderness to palpation. LABORATORY STUDIES: CBC: White blood cell count 6.7, hemoglobin 12.1, platelets 154, sed rate 85. Chemistry panel: Sodium 136, potassium 4.3, chloride 101, bicarbonate 30, BUN 12, creatinine 0.8, glucose 179. LFTs within normal limits. CRP is 0.3. Wound culture is growing coagulase negative staph. Blood cultures are pending. IMAGING: As above. Foot x-ray did not show osteomyelitis. Lower extremity ultrasound did show a patent stent, but there was no flow in the mid portion of the posterior tibial artery. ABIs could not be calculated. ASSESSMENT AND PLAN: Gangrenous foot. He will continue on empiric antibiotics pending additional surgical plan. We will follow along with you. Thank you for this consultation.
[2018-01-13] MEDS ORDERED: VANCOMYCIN TROUGH ONE (11:30)
[2018-01-13] MEDS: SODIUM CHLORIDE 0.9% 1000ML 1,000 ML IV SCH (13:47)
[2018-01-13] MEDS ORDERED: HydrALAZINE HCL 20 MG/ML VIAL IV. PRN (18:45)
--- NOTE | 2018-01-13 19:22 | ORTHOPEDIC CONSULTATION ---
DATE OF CONSULTATION: 01/13/2018 HISTORY OF PRESENT ILLNESS: This is a 57-year-old inmate who was recently seen for fifth toe gangrene with amputation of the fifth toe and also a superficial femoral artery stenting and angioplasty performed by Dr. Marti on his last hospital admission. Patient was seen in the office last week and incision was noted to be stable with sutures intact, minimal edema and patient stated that he was compliant with his nonweightbearing; however, he had worsening symptoms related to his left foot and was then seen to the Emergency Department this past week and admitted to the hospitalist service. Patient was noted to have left fourth toe discoloration and discharge from the lateral side of the distal left foot. He denies fevers or chills. He has some bloody discharge coming from the wound and he was admitted to the hospital for IV antibiotics. Patient was on aspirin and Plavix; however, the patient has not been taking his aspirin as directed. He has been taking his Coumadin as directed. PAST MEDICAL HISTORY: COPD, peripheral vascular disease, diabetes mellitus type 2, gangrene of the left foot, gangrene of the toe of left foot, hypertension, chronic tobacco use. PAST SURGICAL HISTORY: Left fifth toe amputation and implantation of drug-eluting stent and superficial femoral artery performed approximately 3 weeks ago. ALLERGIES: RED BEET POWDER AND NO KNOWN DRUG ALLERGIES. MEDICATIONS: Please note the extensive list provided in the medical record. SOCIAL HISTORY: Current daily smoker. Denies drug use or alcohol use. Single and he is currently an inmate. 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 He is alert and oriented x3. Speech is clear and fluent. Affect is appropriate. EXTREMITIES: Examination of the lower extremities demonstrates dry skin of bilateral lower extremities. The pedal pulses are not palpable, bilateral feet. Feet are slightly warm. Left foot demonstrates sutures intact, lateral fifth toe amputation, minor separation of the suture line is evident; however, overall the wound appears intact. There is no active discharge, drainage, or odor of the left foot. The left fourth toe demonstrates discoloration and a firm distal pulp consistent with tissue necrosis. Hypertrophic calluses are noted in bilateral feet. He has diminished sensation bilateral feet. Range of motion of the ankles appears normal, strength is 4+/5 bilateral lower extremities. He has a flexed position of his left knee. Radiograph of the left foot was reviewed noting soft tissue swelling, osteopenia, status post amputation of the fifth toe, stable hardware of the first toe with previous fusion. LABORATORIES: Reviewed. IMPRESSION: 1. Left fourth toe early gangrene. 2. Cellulitis, left foot. 3. Peripheral vascular disease, left lower extremity. RECOMMENDATIONS: Continue IV antibiotics. Patient at this time is not eager to proceed with any type of further amputation. He is agreed to continue IV antibiotics and reassess in 24-48 hours. My suspicion however is that the patient will need likely amputation of the fourth toe, possible transmetatarsal amputation. Thanks for the opportunity to consult in the care of this patient.
[2018-01-13] MEDS: NORTRIPTYLINE HCL 25 MG CAP PO SCH (20:42)
--- NOTE | 2018-01-13 21:39 | Cardiology Consultation ---
Cardiology Consultation Date of Consultation: Jan 13, 2018. Attending Physician: Isauro Reason for Consultation: Peripheral arterial disease Pt evaluation today including: conversation w/ patient, physical exam, chart review, lab review, review of studies, review of inpatient medication list, conversation w/ attending History of Present Illness Mr. Palma is a 57-year-old prisoner with a long history of insulin-dependent diabetes, hypertension, dyslipidemia, COPD, prior DVT on anticoagulation, ongoing tobacco abuse and peripheral arterial disease post endovascular intervention with CASE MANAGEMENT COORDINATOR with drug-eluting balloon to distal left SFA 12/18/2017 and subsequent left 5th toe amputation who returns to [facility] yesterday in the setting of gangrenous digits on his left foot and draining ulceration. Patient followed up with Dr. Garcia who did his initial amputation post hospitalization. He reports that 4th digit has been draining for some time. Denies any significant lower extremity pain. Denies any fevers or chills. Has been taking aspirin, Plavix, Coumadin without significant bleeding. Upon arrival yesterday was afebrile. Was started on broad-spectrum IV antibiotics. Underwent lower extremity arterial duplex which showed patent left distal SFA and occluded midportion of CASE MANAGEMENT COORDINATOR with remaining tibial vessels patent. Past Medical/Surgical History PAST MEDICAL HISTORY: 1. Diabetes, longstanding, on insulin. 2. Hypertension, difficult to control. 3. Dyslipidemia. 4. Prior hammertoe surgery. 5. Questionable COPD. 6. Questionable coronary artery disease. 7. History of possible left lower extremity DVT in 2009 on anticoagulation. 8. Peripheral arterial disease -- post endovascular 12/18/2017 Summary: 1. Left lower extremity with occluded distal SFA and single vessel distal runoff (occluded PT/AT). 2. Right lower extremity with mild to moderate distal SFA/popliteal disease and two vessel distal runoff with occluded PT. 3. Successful CASE MANAGEMENT COORDINATOR with drug-eluting balloon to left distal SFA artery (5.0 x 120 [employer] BARBARA) Family History Cancer Diabetes mellitus Hypertension Social History Smoking Status: Current Some Day Smoker History of Alcohol Use: No Review of Systems Respiratory: + cough, No sputum, No shortness of breath, No dyspnea on exertion Cardiac: No chest pain, No palpitations All Other Systems: Reviewed and Negative Allergies Coded Allergies: Red Beet Powder (Verified Allergy, Intermediate, Beets - swells up, 12/17/17 ) NO KNOWN DRUG ALLERGIES (Verified Allergy, Unknown, ., 12/14/17) Medications Current Inpatient Medications Medications (Trade) Dose Ordered Sig/Ivelisse Route Start Time Stop Time Status Last Admin Dose Admin Acetaminophen (Tylenol Tab) 1,000 mg TID PO 01/12/18 21:00 02/11/18 20:59 01/13/18 13:48 1,000 MG Cilostazol (Pletal Tab) 100 mg BID PO 01/12/18 21:00 02/11/18 20:59 01/13/18 09:55 100 MG Diclofenac Sodium (Voltaren 1% Top Gel) 4 appln Q6H EXT 01/12/18 18:00 02/11/18 17:59 01/13/18 17:13 4 APPLN Emollient Ointment (Hydrophor Oint) 1 gm BID EXT 01/12/18 21:00 02/11/18 20:59 01/13/18 08:08 1 GM Hydrochlorothiazide (Hydrochlorothiazide Tab) 25 mg QAM PO 01/13/18 09:00 02/12/18 08:59 01/13/18 09:55 25 MG Insulin Aspart Prota 70%/Aspart 30% (novoLOG MIX 70/ 30) 25 units QDB SC 01/13/18 07:30 02/12/18 07:29 Insulin Aspart Prota 70%/Aspart 30% (novoLOG MIX 70/ 30) 30 units QDD SC 01/13/18 18:00 02/12/18 17:59 01/13/18 17:11 30 UNITS Levalbuterol (Xopenex Hfa Inhaler) 1 puffs TID PRN INH 01/12/18 14:00 02/11/18 13:59 Nortriptyline HCl (Pamelor Cap) 25 mg HS PO 01/12/18 21:00 02/11/18 20:59 01/12/18 19:58 25 MG Polyethylene (Miralax Powder Packet) 17 gm DAILY PRN PO 01/12/18 14:00 02/11/18 13:59 Rosuvastatin Calcium (Crestor Tab) 40 mg DAILY PO 01/13/18 09:00 02/12/18 08:59 01/13/18 08:06 40 MG Senna/Docusate Sodium (Senokot S Tab) 1 tab BID PO 01/12/18 21:00 02/11/18 20:59 01/13/18 08:07 1 TAB Miscellaneous Information (Order Awaiting Action) 1 ea QS N/A 01/12/18 18:00 02/11/18 17:59 Irbesartan (Avapro Tab) 300 mg DAILY PO 01/13/18 09:00 02/12/18 08:59 01/13/18 08:06 300 MG Magnesium Oxide (Mag-Ox Tab) 400 mg QAM PO 01/12/18 18:00 02/11/18 17:59 01/13/18 09:55 400 MG Imipenem/ Cilastatin Sodium 500 mg/Dextrose 110 ml @ 100 mls/hr Q6H IV 01/12/18 18:00 01/22/18 17:59 01/13/18 12:14 100 MLS/HR Vancomycin HCl 1250 mg/Sodium Chloride 275 ml @ 125 mls/hr Q10H IV 01/13/18 06:00 01/23/18 05:59 01/13/18 15:57 125 MLS/HR Miscellaneous Information (Consult) 1 ea UD PRN N/A 01/12/18 14:00 02/11/18 13:59 Lactobacillus Acidophilus (Floranex Tab) 4 tab TIDM PO 01/12/18 16:45 02/11/18 17:59 01/13/18 15:53 4 TAB Sodium Chloride 1,000 ml @ 50 mls/hr Q20H IV 01/12/18 17:30 02/11/18 17:29 01/13/18 13:47 50 MLS/HR Acetaminophen (Tylenol Tab) 650 mg Q4H PRN PO 01/12/18 14:00 02/11/18 13:59 Future Hold Al Hydrox/Mg Hydrox/Simethicone (Maalox Max Susp) 15 ml Q4H PRN PO 01/12/18 14:00 02/11/18 13:59 Magnesium Hydroxide (Milk Of Magnesia Susp) 30 ml Q12H PRN PO 01/12/18 14:00 02/11/18 13:59 Zolpidem Tartrate (Ambien Tab) 5 mg HSZ PRN PO 01/12/18 14:00 02/11/18 13:59 Ondansetron HCl (Zofran Inj) 4 mg Q6H PRN IV 01/12/18 14:00 02/11/18 13:59 Insulin Aspart (novoLOG ASPART) SLIDING SCALE If C... ACHS SC 01/12/18 16:15 02/11/18 16:14 01/13/18 17:10 7 UNITS Glucose (Glucose 40% Gel) 15-30 GRAMS 15 GRAMS... UD PRN PO 01/12/18 14:00 02/11/18 13:59 Glucose (Glucose Chew Tab) 4-8 Tablets 4 Tabl... UD PRN PO 01/12/18 14:00 02/11/18 13:59 Dextrose (Dextrose 50% 50ML Syringe) 25-50ML OF 50% DW IV FOR... UD PRN IV 01/12/18 14:00 02/11/18 13:59 Glucagon (Glucagon Inj) 1 mg UD PRN SQ 01/12/18 14:00 02/11/18 13:59 Aspirin (Ecotrin Tab) 81 mg DAILY PO 01/13/18 09:00 02/12/18 08:59 01/13/18 08:06 81 MG Clopidogrel Bisulfate (plAVix TAB) 75 mg DAILY PO 01/13/18 09:00 02/12/18 08:59 01/13/18 08:06 75 MG Tramadol HCl (Ultram Tab) 50 mg Q6H PRN PO 01/12/18 18:00 02/11/18 17:59 01/12/18 18:40 50 MG Physical Exam Vital Signs Past 12 Hours Date Time Temp Pulse Resp B/P (MAP) Pulse Ox O2 Delivery O2 Flow Rate FiO2 01/13/18 16:01 36.8 82 16 173/78 (109) 100 Room Air 01/13/18 16:00 Room Air 01/13/18 12:00 Room Air 01/13/18 11:28 36.7 74 19 157/72 (100) 96 Room Air 01/13/18 08:00 Room Air 01/13/18 07:28 36.8 84 18 164/79 (107) 97 Room Air General: Comfortable, no acute distress Eyes: Sclerae anicteric, extraocular movements intact HENT: Oropharynx clear mucous membranes moist Neck: Normal carotid upstrokes, no bruits. No JVD. Lungs: Clear to auscultation bilaterally, no rhonchi or wheezes Cardiac: Regular rate and rhythm, no murmurs, rubs or gallops. Abdomen: Soft, nontender, nondistended, positive bowel sounds. Neuro: Nonfocal Psych: Alert orient x3, normal affect and mood Extremities/Vascular: -- 2+ radial bilaterally -- 2+ popliteal bilaterally -- 2 + DP on right; PT nonpalpable -- nonpalpable DP/PT pulses on left -- sutures in place over 5th toe amputation site with intact wound. Fourth toe gangrenous with no open ulceration 1st through 3rd also with findings suggestive of dry gangrene. Mid foot warm. Data Laboratory Results: Last 24 Hours Test 01/12/18 20:27 01/13/18 05:43 01/13/18 06:53 01/13/18 11:25 Bedside Glucose 208 mg/dl 179 mg/dl 179 mg/dl White Blood Count 6.77 K/uL Red Blood Count 3.98 M/uL Hemoglobin 12.1 g/dL Hematocrit 34.4 % Mean Corpuscular Volume 86.4 fL Mean Corpuscular Hemoglobin 30.4 pg Mean Corpuscular Hemoglobin Concent 35.2 g/dl Platelet Count 154 K/uL Mean Platelet Volume 9.2 fL Neutrophils (%) (Auto) 54.6 % Lymphocytes (%) (Auto) 31.3 % Monocytes (%) (Auto) 8.9 % Eosinophils (%) (Auto) 4.6 % Basophils (%) (Auto) 0.3 % Neutrophils # (Auto) 3.70 K/uL Lymphocytes # (Auto) 2.12 K/uL Monocytes # (Auto) 0.60 K/uL Eosinophils # (Auto) 0.31 K/uL Basophils # (Auto) 0.02 K/uL RDW Standard Deviation 45.7 fL RDW Coefficient of Variation 14.5 % Immature Granulocyte % (Auto) 0.3 % Immature Granulocyte # (Auto) 0.02 K/uL Prothrombin Time 19.2 SECONDS Prothromb Time International Ratio 1.9 Sodium Level 136 mmol/L Potassium Level 4.3 mmol/L Chloride Level 101 mmol/L Carbon Dioxide Level 30 mmol/L Anion Gap 5.0 mmol/L Blood Urea Nitrogen 12 mg/dl Creatinine 0.83 mg/dl Est Creatinine Clear Calc Drug Dose 95.9 ml/min Estimated GFR () 111.6 Estimated GFR (Non- 96.3 BUN/Creatinine Ratio 14.3 Random Glucose 152 mg/dl Lactic Acid Level 0.8 mmol/L Calcium Level 8.6 mg/dl Magnesium Level 1.5 mg/dl Total Bilirubin 0.5 mg/dl Aspartate Amino Transf (AST/SGOT) 19 U/L Alanine Aminotransferase (ALT/SGPT) 35 U/L Alkaline Phosphatase 83 U/L Total Protein 7.1 gm/dl Albumin 2.9 gm/dl Globulin 4.2 gm/dl Albumin/Globulin Ratio 0.7 Test 01/13/18 16:20 Bedside Glucose 198 mg/dl Lower extremity arterial duplex--patent left distal SFA, occluded mid CASE MANAGEMENT COORDINATOR with remaining tibial vessels patent Assessment & Plan 1. Left lower extremity CAD--post CASE MANAGEMENT COORDINATOR to distal SFA 2. Left 4th toe gangrene 3. Left lower extremity cellulitis 4. Insulin-dependent diabetes 5. Ongoing tobacco abuse 6. History of prior DVT on long-term anticoagulation 7. Hypertension Patient returned to [facility] in the setting of 4th digit gangrene and apparent cellulitis. Have reviewed lower extremity arterial duplex obtained on admission and previously intervened upon distal SFA appears patent. Tibial vessel flow appears unchanged from angiogram obtained at time of intervention at which time had direct in-line flow via peroneal artery and reconstitution of distal AT and PT arteries. At this time do not feel patient has further revascularization options. Prior angiograms suggest adequate tissue perfusion to the level of the hindfoot/ midfoot with distal wound healing limited by severe diffuse pedal artery/small vessel disease. From a vascular standpoint recommend holding clopidogrel, anticoagulation in preparation for surgical amputation per Dr. Garcia. Otherwise no change to current antihypertensives, statin therapy.
[2018-01-14] VITALS (7 sets, daily range): BP systolic 128–169; BP diastolic 70–95; PULSE 70–94; TEMP 36.6–36.9; O2SAT 92–100
[2018-01-14] MEDS: IMIPENEM/CILASTATIN IV 500 MG in DEXTROSE 5% 100ML 100 ML IV SCH ×2 (00:30→05:52)
[2018-01-14] MEDS: TRAMADOL HCL 50 MG TAB PO PRN ×2 (00:30→21:25)
[2018-01-14] MEDS: DICLOFENAC SOD 1% GEL 100 GM TUBE EXT SCH ×5 (00:31→23:55)
[2018-01-14] MEDS ORDERED: VANCOMYCIN TROUGH ONE (01:30)
[2018-01-14] MEDS: VANCOMYCIN IV 1,250 MG in SODIUM CHLORIDE 0.9% 250ML 250 ML IV SCH ×3 (02:12→21:29)
[2018-01-14 07:08] LABS: BASO % 0.3 %; BASO ABS # 0.02 K/uL (0-0.2); EOS % 5.5 %; EOS ABS # 0.35 K/uL (0-0.5); HEMATOCRIT 36.5 % (42-52); HEMOGLOBIN 12.8 g/dL (14.0-18.0); IG# 0.01 K/uL (0.00-0.02); LYMPH % 30.9 %; LYMPH ABS # 1.98 K/uL (1.2-3.4); MEAN CELL VOLUME 86.7 fL (80-100); MEAN CORPUSCULAR HEMOGLOBIN 30.4 pg (25-34); MEAN CORPUSCULAR HGB CONC 35.1 g/dl (32-36); MEAN PLATELET VOLUME 9.4 fL (7.4-10.4); MONO % 9.2 %; MONO ABS # 0.59 K/uL (0.11-0.59); NEUT % 53.9 %; NEUT ABS # 3.45 K/uL (1.4-6.5); PLATELET COUNT 156 K/uL (130-400); RED CELL DISTRIBUTION WIDTH CV 14.5 % (11.5-14.5); RED CELL DISTRIBUTION WIDTH SD 45.4 fL (36.4-46.3)
[2018-01-14 07:15] LABS: INR 1.2 (0.9-1.1)
[2018-01-14 07:46] LABS: CREATININE 0.99 mg/dl (0.60-1.40); POTASSIUM 4.4 mmol/L (3.5-5.1)
[2018-01-14] MEDS: DOCUSATE SODIUM/SENNA 50/8.6MG TAB PO SCH ×2 (07:56→21:27)
[2018-01-14] MEDS: ROSUVASTATIN CALCIUM 20 MG TAB PO SCH (07:57)
[2018-01-14] MEDS: CLOPIDOGREL BISULFATE 75 MG TAB PO SCH (07:57)
[2018-01-14] MEDS: HYDROCHLOROTHIAZIDE 25 MG TAB PO SCH (07:57)
[2018-01-14] MEDS: MAGNESIUM OXIDE 400 MG TAB PO SCH (07:57)
[2018-01-14] MEDS: CILOSTAZOL 100 MG TAB PO SCH ×2 (07:57→21:28)
[2018-01-14] MEDS: ASPIRIN 81 MG ECTAB PO SCH (07:57)
[2018-01-14] MEDS: IRBESARTAN 150 MG TAB PO SCH (07:58)
[2018-01-14] MEDS: LACTOBACILLUS ACIDOPHILUS (FLORANEX) TAB PO SCH ×4 (07:58→17:45)
[2018-01-14] MEDS: ACETAMINOPHEN 500 MG TAB PO SCH ×3 (07:59→21:27)
[2018-01-14] MEDS: HYDROPHOR OINT 100 GM JAR EXT SCH ×2 (07:59→21:29)
[2018-01-14] MEDS: INSULIN ASPART 100 UNITS/ML 3 ML PEN SC SCH ×5 (08:05→21:36)
[2018-01-14] MEDS: INSULIN 70% ASPART PROTAMINE/30% ASPART SC SCH ×3 (08:06→19:58)
--- NOTE | 2018-01-14 13:04 | Hospitalist Progress Note ---
Hospitalist Progress Note Date of Service January 14, 2018. (Fransisca Pritchett PA-C) Subjective Pt evaluation today including: conversation w/ patient, physical exam, chart review, lab review, review of studies, conversation w/ car sales consultant (ortho) Pain: minimal L foot pain PO Intake: good Voiding: no voiding problems The patient was seen and examined this morning. Pt reports doing well today, he denies fever, chills or sweats. Pt is hesitant for surgery in general, although understands our plan to use IV abx for another [address] Garcia to determine if will do 4th toe amp vs. metatarsal amputation. Additional Comments: Constitutional: No fever, No chills, No sweats Eyes: No redness, No diplopia ENT: No nasal symptoms, No trouble swallowing Respiratory: + cough, No sputum, No shortness of breath, No dyspnea on exertion Cardiovascular: No chest pain, No palpitations Abdomen: No pain, No nausea, No vomiting, No diarrhea, No constipation Musculoskeletal: + see HPI, No joint pain, No swelling Male : No dysuria Neurologic: No weakness, No numbness/tingling Psychiatric: No depression symptoms, No anxiety Skin: No rash, No itch (Fransisca Pritchett PA-C) Objective Vital Signs Date Time Temp Pulse Resp B/P (MAP) Pulse Ox O2 Delivery O2 Flow Rate FiO2 01/14/18 11:02 36.7 90 20 155/70 (98) 100 01/14/18 08:00 Room Air 01/14/18 06:27 36.8 90 17 153/86 (108) 97 Room Air 01/14/18 04:27 36.6 87 17 169/95 (119) 98 Room Air 01/14/18 04:00 Room Air 01/14/18 00:01 Room Air 01/13/18 23:39 36.8 94 18 159/91 (113) 99 Room Air 01/13/18 20:01 36.7 86 17 148/90 (109) 97 Room Air 01/13/18 20:00 Room Air 01/13/18 16:01 36.8 82 16 173/78 (109) 100 Room Air 01/13/18 16:00 Room Air (Filipowicz,Fransisca G., PA-C) Physical Exam Notes: General Appearance: WD/WN, no apparent distress, + pertinent finding ( ) Eyes: PERRL, EOMI ENT: hearing grossly normal, pharynx normal, + pertinent finding (MMM, poor dentition) Respiratory/Chest: lungs clear, no respiratory distress, no accessory muscle use, + wheezing (few faint expiratory throughout), + pertinent finding (on RA) Cardiovascular: regular rate, rhythm, no murmur Abdomen: normal bowel sounds, non tender, soft Extremities: non-tender, no pedal edema, no calf tenderness, + pertinent finding (LLE with lateral surgical site appears dry, no drainage, surrounding darkened skin region, + dehiscence of sutures s/p 5th toe amputation. RLE with multiple ulcerations on great toe, and multiple metatarsal heads with serosanginous drainage. No surrounding erythema or edema.) Neurologic/Psychiatric: alert, normal mood/affect, oriented x 3 Skin: normal color, warm/dry, + pertinent finding (see Extremity exam.) (Fransisca Pritchett, ANDRYC) Laboratory Results Last 24 Hours Test 01/13/18 16:20 01/13/18 19:15 01/13/18 20:38 01/14/18 06:47 Bedside Glucose 198 mg/dl 77 mg/dl Erythrocyte Sedimentation Rate 39 mm/hr 54 mm/hr White Blood Count 6.40 K/uL Red Blood Count 4.21 M/uL Hemoglobin 12.8 g/dL Hematocrit 36.5 % Mean Corpuscular Volume 86.7 fL Mean Corpuscular Hemoglobin 30.4 pg Mean Corpuscular Hemoglobin Concent 35.1 g/dl Platelet Count 156 K/uL Mean Platelet Volume 9.4 fL Neutrophils (%) (Auto) 53.9 % Lymphocytes (%) (Auto) 30.9 % Monocytes (%) (Auto) 9.2 % Eosinophils (%) (Auto) 5.5 % Basophils (%) (Auto) 0.3 % Neutrophils # (Auto) 3.45 K/uL Lymphocytes # (Auto) 1.98 K/uL Monocytes # (Auto) 0.59 K/uL Eosinophils # (Auto) 0.35 K/uL Basophils # (Auto) 0.02 K/uL RDW Standard Deviation 45.4 fL RDW Coefficient of Variation 14.5 % Immature Granulocyte % (Auto) 0.2 % Immature Granulocyte # (Auto) 0.01 K/uL Prothrombin Time 12.6 SECONDS Prothromb Time International Ratio 1.2 Sodium Level 134 mmol/L Potassium Level 4.4 mmol/L Chloride Level 100 mmol/L Carbon Dioxide Level 28 mmol/L Anion Gap 6.0 mmol/L Blood Urea Nitrogen 15 mg/dl Creatinine 0.99 mg/dl Est Creatinine Clear Calc Drug Dose 87.6 ml/min Estimated GFR () 96.2 Estimated GFR (Non- 83.0 BUN/Creatinine Ratio 15.0 Random Glucose 249 mg/dl Calcium Level 9.0 mg/dl C-Reactive Protein 0.67 mg/dl Test 01/14/18 07:19 01/14/18 11:21 01/14/18 11:59 Bedside Glucose 234 mg/dl 185 mg/dl Vancomycin Level Trough 19.8 mcg/ml (Fransisca Pritchett, PARasta) Assessment and Plan 57 yo M with pmhx of DMII on insulin, htn, copd, PAD s/p recent SFA HERMINIA stent , DVT in 2009 currently on coumadin, CAD, tobbaco dependence and recent fifth toe / 5th metatarsal head amputation for OM. Presents from [facility] with Left fourth toe discoloration and discharge from the previous wound on his left foot. 5th metatarsal head amp for OM with surgical wound dehiscence and infection Coag neg Staph + wound culture Left fourth toe discoloration possible dry gangrene - Ortho on board- Dr. Garcia, will continue aspirin and Plavix due to the recent stent and SFA, will Place Coumadin on hold but will not reverse INR at this point - coumadin and asa to resume after possible surgical procedure and stop plavix as this will be approximately 1 month out since sten to the SFA. - Possible surgery tomorrow, none planned for today so will allow diet. - ID on board- appreciate recs: dc imipenum and continue vanc as Coag neg staph growing in wound culture. - Repeat INR= 1.9 - Will need PT/OT after surg - currently NWB to LLE HTN -BP remains slightly elevated, will add on metoprolol 12.5 mg BID Hypomagnesemia - Replaced this morning w/ 1 g IV DMII on insulin - Continue insulin 70/30 subcu- 25 U with breakfast and 30 U with dinner - ISS with accuchecks - Hemoglobin A1C= 7.5 about 3 weeks ago Essential hypertension CAD PAD s/p recent SFA with drug-eluting balloon by Dr. Mendez DVT in 2009 currently on coumadin - Cardiology consult- Dr. Mendez - no further intervention for vascularization- pt does not have a stent - continue asa alone at this time, STOP plavix now, and plan to transition to asa + coumadin after possible surgery - Continue asa 81 mg, plavix, pletal 100 mg BID, HCTZ 25 mg QAM Copd not in exacerbation tobacco dependence - Stable - Cessation encouraged at bedside - pt refuses nicotine patch today. - cont inhalers DVT ppx: teds, scds, asa 81 mg alone currently. CODE: FULL Disposition: From [facility], mi there after surgical procedure which may be scheduled for tomorrow. Will make NPO except meds tonight. Transfer off tele to med surg today. (Fransisca Pritchett PA-C) Reviewed: Pt Seen/Exam by Me (Laurita Box MD) History Physician Golf Course Designer supervision Note: I interviewed and examined the patient. Discussed with CARY Pritchett and agree with findings and plan as documented in the note. Any exceptions or clarifications are listed here: Pt concerned that he is to have amputation tomorrow and no one told him about it. This is because RN informed him he was made nPO after midnight. Pt was not seen by Ortho today and plan was to reassess tomorrow. I explained that the NPO order is just in case he ends up needing surgery tomorrow, but certainly the Orthopedic Surgeon would discuss it with him prior to any procedure. Vitals reviewed, telemetry w/ NSR, some bigeminy, PACs Gen: AAOx3, NAD HEENT: anicteric sclerae, EOMI CV: RRR with some ectopy, no mgr nl S1S2 Pulm: Diminished breath sounds throughout, no wcr Ext: no edema, left foot with dressing in place, fourth toe with dry gangrene, previous incision site is slightly open, no drainage This patient is a 57-year-old male with a history of recent left fifth toe gangrene with osteomyelitis status post amputation, severe PAD status post left SFA drug-eluting balloon angioplasty, DM 2, COPD, HTN, CAD, history of DVT on long-term anticoagulation, dyslipidemia, and tobacco abuse/current smoker, here with probable wound infection of previous amputation site, and fourth toe on the left foot with dry gangrene. ESR is elevated at 85 on admission and now decreased to 54 with IV abx. No evidence for osteomyelitis on x-ray of the foot. Wound cx with Coag neg Staph, Imipenem stopped by ID -Continue on vancomycin as per infectious disease consultation -follow ESR and CRP periodically -Appreciate orthopedics consult-may end up needing trans-metatarsal amputation, is NPO after midnight just in case of surgery tomorrow -Appreciate cardiology consultation-stent is patent and has severe small vessel peripheral arterial disease more distally that cannot be intervened upon -continue ASA only as above, restart coumadin after surgery if performed, consider bridging Lovenox if no surgery planned given h/o DVT - starting metoprolol for elevated BPs Documented By: Laurita Box (Laurita Box MD)
--- NOTE | 2018-01-14 15:02 | Pharmacy Progress Note ---
Pharmacy Abx Dose Short Note Date of Service January 14, 2018. Assessment & Plan Assessment 57 year old male receiving Vancomycin for treatment of L. foot infection Day # 3 of antimicrobial therapy. Plan Vancomycin * Trough level of 19.8 mcg/mL is therapeutic. Level was drawn at 1159. Medication was started at 1138. Verified timing with nursing and lab but would expect higher level if truly drawn while medication infusing. * Continue dose of 1250 mg IV every 10 hours * Goal trough level for 15 to 20 mcg/mL * Trough level ordered for: 01/15/18 @ 0730 to recheck level since lab draw was while medication was infusing. Pharmacy will continue to follow and will adjust dose/frequency as necessary. Thank you.
--- NOTE | 2018-01-14 15:03 | Progress Note ---
Subjective Date of Service: January 14, 2018. Subjective remains on IV abx, imipenem stopped, no gnr found. surgery following, pt deciding. afebrile. blood cultures negative to date. Problem List Medical Problems: (1) Gangrene of left foot Status: Acute (2) Gangrene of toe of left foot Status: Acute (3) Left foot infection Status: Acute Objective Vital Signs Date Time Temp Pulse Resp B/P (MAP) Pulse Ox O2 Delivery O2 Flow Rate FiO2 01/14/18 12:00 Room Air 01/14/18 11:02 36.7 90 20 155/70 (98) 100 01/14/18 08:00 Room Air 01/14/18 06:27 36.8 90 17 153/86 (108) 97 Room Air 01/14/18 04:27 36.6 87 17 169/95 (119) 98 Room Air 01/14/18 04:00 Room Air 01/14/18 00:01 Room Air 01/13/18 23:39 36.8 94 18 159/91 (113) 99 Room Air 01/13/18 20:01 36.7 86 17 148/90 (109) 97 Room Air 01/13/18 20:00 Room Air 01/13/18 16:01 36.8 82 16 173/78 (109) 100 Room Air 01/13/18 16:00 Room Air Laboratory Results Item Value Date Time Blood Culture - Preliminary Resulted 01/12/18 0934 Blood NO GROWTH TO DATE. Blood Culture - Preliminary Resulted 01/12/18 0930 Blood NO GROWTH TO DATE. Last 24 Hours Test 01/13/18 16:20 01/13/18 19:15 01/13/18 20:38 01/14/18 06:47 Bedside Glucose 198 mg/dl 77 mg/dl Erythrocyte Sedimentation Rate 39 mm/hr 54 mm/hr White Blood Count 6.40 K/uL Red Blood Count 4.21 M/uL Hemoglobin 12.8 g/dL Hematocrit 36.5 % Mean Corpuscular Volume 86.7 fL Mean Corpuscular Hemoglobin 30.4 pg Mean Corpuscular Hemoglobin Concent 35.1 g/dl Platelet Count 156 K/uL Mean Platelet Volume 9.4 fL Neutrophils (%) (Auto) 53.9 % Lymphocytes (%) (Auto) 30.9 % Monocytes (%) (Auto) 9.2 % Eosinophils (%) (Auto) 5.5 % Basophils (%) (Auto) 0.3 % Neutrophils # (Auto) 3.45 K/uL Lymphocytes # (Auto) 1.98 K/uL Monocytes # (Auto) 0.59 K/uL Eosinophils # (Auto) 0.35 K/uL Basophils # (Auto) 0.02 K/uL RDW Standard Deviation 45.4 fL RDW Coefficient of Variation 14.5 % Immature Granulocyte % (Auto) 0.2 % Immature Granulocyte # (Auto) 0.01 K/uL Prothrombin Time 12.6 SECONDS Prothromb Time International Ratio 1.2 Sodium Level 134 mmol/L Potassium Level 4.4 mmol/L Chloride Level 100 mmol/L Carbon Dioxide Level 28 mmol/L Anion Gap 6.0 mmol/L Blood Urea Nitrogen 15 mg/dl Creatinine 0.99 mg/dl Est Creatinine Clear Calc Drug Dose 87.6 ml/min Estimated GFR () 96.2 Estimated GFR (Non- 83.0 BUN/Creatinine Ratio 15.0 Random Glucose 249 mg/dl Calcium Level 9.0 mg/dl C-Reactive Protein 0.67 mg/dl Test 01/14/18 07:19 01/14/18 11:21 01/14/18 11:59 Bedside Glucose 234 mg/dl 185 mg/dl Vancomycin Level Trough 19.8 mcg/ml Assessment and Plan (1) Gangrene of left foot Assessment & Plan: suspect he will require surgery for cure as vascular supply poor. continue abx pending pt decision.
[2018-01-14] MEDS: METOPROLOL TARTRATE 25 MG TAB PO SCH ×2 (17:16→21:00)
[2018-01-14] MEDS: NORTRIPTYLINE HCL 25 MG CAP PO SCH (21:28)
[2018-01-15] MEDS ORDERED: NURSING VERBAL MED ORDER ONE ×2 (02:00→14:45)
[2018-01-15] MEDS: DICLOFENAC SOD 1% GEL 100 GM TUBE EXT SCH ×3 (05:49→19:04)
[2018-01-15] MEDS: INSULIN ASPART 100 UNITS/ML 3 ML PEN SC SCH ×4 (05:49→22:16)
[2018-01-15 07:28] VITALS: BP 142/80; PULSE 84; TEMP 36.8; O2SAT 97
[2018-01-15] MEDS ORDERED: VANCOMYCIN TROUGH ONE (07:30)
[2018-01-15 07:51] LABS: HEMATOCRIT 37.1 % (42-52); HEMOGLOBIN 12.9 g/dL (14.0-18.0); MEAN CELL VOLUME 86.1 fL (80-100); MEAN CORPUSCULAR HEMOGLOBIN 29.9 pg (25-34); MEAN CORPUSCULAR HGB CONC 34.8 g/dl (32-36); MEAN PLATELET VOLUME 9.2 fL (7.4-10.4); PLATELET COUNT 140 K/uL (130-400); RED CELL DISTRIBUTION WIDTH CV 14.4 % (11.5-14.5); RED CELL DISTRIBUTION WIDTH SD 45.3 fL (36.4-46.3); WHITE BLOOD COUNT 6.68 K/uL (4.8-10.8)
[2018-01-15] MEDS: LACTOBACILLUS ACIDOPHILUS (FLORANEX) TAB PO SCH ×3 (08:18→19:03)
[2018-01-15 08:19] LABS: CALCIUM 8.8 mg/dl (8.5-10.1); CREATININE 1.04 mg/dl (0.60-1.40); POTASSIUM 4.3 mmol/L (3.5-5.1)
[2018-01-15] MEDS: VANCOMYCIN IV 1,250 MG in SODIUM CHLORIDE 0.9% 250ML 250 ML IV SCH ×2 (08:19→22:17)
[2018-01-15] MEDS: METOPROLOL TARTRATE 25 MG TAB PO SCH ×2 (08:55→22:01)
[2018-01-15] MEDS: ASPIRIN 81 MG ECTAB PO SCH (08:55)
[2018-01-15] MEDS: IRBESARTAN 150 MG TAB PO SCH (08:55)
[2018-01-15] MEDS: ROSUVASTATIN CALCIUM 20 MG TAB PO SCH (08:55)
[2018-01-15] MEDS: DOCUSATE SODIUM/SENNA 50/8.6MG TAB PO SCH ×2 (08:55→22:01)
[2018-01-15] MEDS: HYDROPHOR OINT 100 GM JAR EXT SCH ×2 (08:56→22:00)
[2018-01-15] MEDS: ACETAMINOPHEN 500 MG TAB PO SCH ×3 (08:57→22:01)
[2018-01-15] MEDS: CILOSTAZOL 100 MG TAB PO SCH ×2 (08:57→22:01)
[2018-01-15] MEDS: MAGNESIUM OXIDE 400 MG TAB PO SCH (08:57)
[2018-01-15] MEDS: HYDROCHLOROTHIAZIDE 25 MG TAB PO SCH (08:58)
--- NOTE | 2018-01-15 11:42 | Hospitalist Progress Note ---
Hospitalist Progress Note Date of Service January 15, 2018. (Fransisca Pritchett PA-C) Subjective Pt evaluation today including: conversation w/ patient, physical exam, chart review, lab review, review of studies Pain: Minimal left foot pain PO Intake: NPO Voiding: no voiding problems The patient was seen and examined this morning. Pt reports doing well this morning, he has minimal left foot pain around the incision site but denies acute pain. He has not had any fever, chills or sweats. Pt denies any other acute issues and is awaiting word on possible surgery. He is content at this time with antibiotics. If no surgery today then will allow a diet. Additional Comments: Constitutional: No fever, No chills, No sweats Respiratory: + cough, No sputum, No shortness of breath, No dyspnea on exertion Cardiovascular: No chest pain, No palpitations Abdomen: No pain, No nausea, No vomiting, No diarrhea, No constipation Musculoskeletal: + see HPI, No joint pain, No swelling Male : No dysuria Neurologic: No weakness, No numbness/tingling Psychiatric: No depression symptoms, No anxiety Skin: No rash, No itch (Fransisca Pritchett PA-C) Objective Vital Signs Date Time Temp Pulse Resp B/P (MAP) Pulse Ox O2 Delivery O2 Flow Rate FiO2 01/15/18 08:00 Room Air 01/15/18 07:28 36.8 84 18 142/80 (100) 97 Room Air 01/14/18 23:58 Room Air 01/14/18 22:59 36.8 70 18 169/72 (104) 92 Room Air 01/14/18 21:24 94 150/86 (107) 01/14/18 16:40 Room Air 01/14/18 16:00 36.9 89 19 96 01/14/18 15:32 36.9 89 19 128/70 (89) 96 Room Air 01/14/18 15:30 Room Air 01/14/18 12:00 Room Air (Fransisca Pritchett PA-C) Physical Exam Notes: General Appearance: WD/WN, no apparent distress, + pertinent finding ( ) Eyes: PERRL, EOMI ENT: hearing grossly normal, pharynx normal, + pertinent finding (MMM, poor dentition) Respiratory/Chest: lungs clear, no respiratory distress, no accessory muscle use, + wheezing (few faint expiratory throughout), + pertinent finding (on RA) Cardiovascular: regular rate, rhythm, no murmur Abdomen: normal bowel sounds, non tender, soft Extremities: non-tender, no pedal edema, no calf tenderness, + pertinent finding (LLE wrapped in kerlix dressing, c/d/i, +callouses over the RLE foot) Neurologic/Psychiatric: alert, normal mood/affect, oriented x 3 Skin: normal color, warm/dry, + pertinent finding (see Extremity exam.) (Fransisca Pritchett PA-C) Laboratory Results Last 24 Hours Test 01/14/18 11:59 01/14/18 16:27 01/14/18 20:39 01/15/18 05:41 Vancomycin Level Trough 19.8 mcg/ml Bedside Glucose 87 mg/dl 168 mg/dl 69 mg/dl Test 01/15/18 06:15 01/15/18 07:41 Bedside Glucose 127 mg/dl White Blood Count 6.68 K/uL Red Blood Count 4.31 M/uL Hemoglobin 12.9 g/dL Hematocrit 37.1 % Mean Corpuscular Volume 86.1 fL Mean Corpuscular Hemoglobin 29.9 pg Mean Corpuscular Hemoglobin Concent 34.8 g/dl RDW Standard Deviation 45.3 fL RDW Coefficient of Variation 14.4 % Platelet Count 140 K/uL Mean Platelet Volume 9.2 fL Sodium Level 137 mmol/L Potassium Level 4.3 mmol/L Chloride Level 103 mmol/L Carbon Dioxide Level 30 mmol/L Anion Gap 4.0 mmol/L Blood Urea Nitrogen 21 mg/dl Creatinine 1.04 mg/dl Est Creatinine Clear Calc Drug Dose 83.4 ml/min Estimated GFR () 90.7 Estimated GFR (Non- 78.2 BUN/Creatinine Ratio 20.0 Random Glucose 123 mg/dl Calcium Level 8.8 mg/dl Vancomycin Level Trough 19.0 mcg/ml (Fransisca Pritchett PA-C) Assessment and Plan 57 yo M with pmhx of DMII on insulin, htn, copd, PAD s/p recent SFA HERMINIA stent , DVT in 2009 currently on coumadin, CAD, tobbaco dependence and recent fifth toe / 5th metatarsal head amputation for OM. Presents from [facility] facility with Left fourth toe discoloration and discharge from the previous wound on his left foot. 5th metatarsal head amp for OM with surgical wound dehiscence and infection Coag neg Staph + wound culture Left fourth toe discoloration possible dry gangrene - Ortho on board- Dr. Garcia, will continue aspirin and Plavix due to the recent stent and SFA, will Place Coumadin on hold but will not reverse INR at this point - coumadin and asa to resume after possible surgical procedure and stop plavix as this will be approximately 1 month out since balloon angio to the SFA. - Pt is an add on for surgery later today - Currently NPO - ID on board- appreciate recs: dc imipenum on 01/14: continue vanc (started 01/11 ) as Coag neg staph growing in wound culture. - Repeat INR= 1.2 today - Will need PT/OT after surg - currently NWB to LLE HTN -BP remains slightly elevated today in 140s-150s but slightly improved compared to yesterday - started metoprolol 12.5 mg BID on 01/14 - continue today and follow BPs to determine if needs increase. Hypomagnesemia - Replaced this morning w/ 1 g IV DMII on insulin - Continue insulin 70/30 subcu- HOLD this mornings dose as NPO and cover with ISS - normal regimen 25 U with breakfast and 30 U with dinner - ISS with accuchecks - Hemoglobin A1C= 7.5 about 3 weeks ago Essential hypertension CAD PAD s/p recent SFA with drug-eluting balloon by Dr. Mendez DVT in 2009 currently on coumadin - Cardiology consult- Dr. Mendez - no further intervention for vascularization- pt does not have a stent - continue asa alone at this time, STOP plavix now, and plan to transition to asa + coumadin after possible surgery - Continue asa 81 mg, plavix, pletal 100 mg BID, HCTZ 25 mg QAM Copd not in exacerbation tobacco dependence - Stable - Cessation encouraged at bedside - pt refuses nicotine patch today. - cont inhalers DVT ppx: teds, scds, asa 81 mg alone currently. CODE: FULL Disposition: From [facility] institution, dc there after surgical procedure. (Fransisca Pritchett, JUVENTINO) Attending Attestation - Pt seen/examined, chart reviewed, care plan d/w CARY Pritchett. I agree w/ the godfrey components of her documentation. Pt w/ no complaints during the visit. No diarrhea, cp, dyspnea. VSS, no fever gen - nad neck - no JVD heart - RRR lungs - CTA b/l abd - soft ext - left foot wrapped in dressing; 5th toe absent; digits 1-4 dark/black in color with 4th toe having early necrosis; DP and pos tib pulses <1+; right foot pulses 1+ A/P: Concern of early gangrene left 4th toe. Recent left fifth toe amputation as well as amputation of metatarsal head. PAD with recent intervention to left femoral artery but continued poor blow flow distally in the foot. NPO after MN. Likely to OR tomorrow. DM with hypoglycemia - continue 70/30 as is; change novolog correction and carb ratio (too tight at this time leading to hypoglycemia) Yuriy DONATO MD (Chandler Donato MD)
--- NOTE | 2018-01-15 13:29 | Pharmacy Progress Note ---
Pharmacy Abx Dose Short Note Date of Service January 15, 2018. Assessment & Plan Item Value Date Time Vancomycin Level Trough 19.0 mcg/ml 01/15/18 0741 Vancomycin Level Trough 19.8 mcg/ml 01/14/18 1159 Creatinine 1.04 mg/dl 01/15/18 0741 Est Creatinine Clear Calc Drug Dose 83.4 ml/min 01/15/18 0741 Creatinine 0.86 mg/dl 01/12/18 0934 Est Creatinine Clear Calc Drug Dose 92.5 ml/min 01/12/18 0934 Assessment 57 year old male receiving VANC-IV for treatment of left toe infection/dry gangrene. * Day # 4 of antimicrobial therapy (as in-patient). Pertinent PMH: Incarcerated, diabetes, COPD, hx osteomyelitis Plan From past ADM (December 2017), pt on Vanc 1250mg IV q 10-14 hours depending on renal function. Vancomycin * Trough level of 19.0 mcg/mL is therapeutic. As Vanc continues to reach Css and renal function on slight rise, will extend dosing interval. * Change maintenance dose to VANC 1250mg IV every 12 hours * Goal trough level: 15 to 20 mcg/mL * Recheck VANC Trough @ Css prior to 01/17/18 1000 dose Pharmacy will continue to follow and will adjust dose/frequency as necessary. Thank you.
--- NOTE | 2018-01-15 14:03 | Progress Note ---
Subjective Date of Service: January 15, 2018. Subjective for OR today, blood cultures remain negative, afebrile. tolerating vanco. wound with hairspring adjuster, no sensitivities done. Problem List Medical Problems: (1) Gangrene of left foot Status: Acute (2) Gangrene of toe of left foot Status: Acute (3) Left foot infection Status: Acute Objective Vital Signs Date Time Temp Pulse Resp B/P (MAP) Pulse Ox O2 Delivery O2 Flow Rate FiO2 01/15/18 08:00 Room Air 01/15/18 07:28 36.8 84 18 142/80 (100) 97 Room Air 01/14/18 23:58 Room Air 01/14/18 22:59 36.8 70 18 169/72 (104) 92 Room Air 01/14/18 21:24 94 150/86 (107) 01/14/18 16:40 Room Air 01/14/18 16:00 36.9 89 19 96 01/14/18 15:32 36.9 89 19 128/70 (89) 96 Room Air 01/14/18 15:30 Room Air Laboratory Results Last 24 Hours Test 01/14/18 16:27 01/14/18 20:39 01/15/18 05:41 01/15/18 06:15 Bedside Glucose 87 mg/dl 168 mg/dl 69 mg/dl 127 mg/dl Test 01/15/18 07:41 White Blood Count 6.68 K/uL Red Blood Count 4.31 M/uL Hemoglobin 12.9 g/dL Hematocrit 37.1 % Mean Corpuscular Volume 86.1 fL Mean Corpuscular Hemoglobin 29.9 pg Mean Corpuscular Hemoglobin Concent 34.8 g/dl RDW Standard Deviation 45.3 fL RDW Coefficient of Variation 14.4 % Platelet Count 140 K/uL Mean Platelet Volume 9.2 fL Sodium Level 137 mmol/L Potassium Level 4.3 mmol/L Chloride Level 103 mmol/L Carbon Dioxide Level 30 mmol/L Anion Gap 4.0 mmol/L Blood Urea Nitrogen 21 mg/dl Creatinine 1.04 mg/dl Est Creatinine Clear Calc Drug Dose 83.4 ml/min Estimated GFR () 90.7 Estimated GFR (Non- 78.2 BUN/Creatinine Ratio 20.0 Random Glucose 123 mg/dl Calcium Level 8.8 mg/dl Vancomycin Level Trough 19.0 mcg/ml Assessment and Plan (1) Gangrene of left foot Assessment & Plan: await OR findings, abx and duration will depend on extent of debridement, doubt significant abx delivery with underlying vascular disease. follow cultures.
[2018-01-15 15:19] VITALS: BP 142/66; PULSE 91; TEMP 37.4; O2SAT 95
--- NOTE | 2018-01-15 16:33 | Orthopedic Progress Note ---
Orthopedic Progress Note Date of Service January 15, 2018. Subjective Additional Notes: No new complaints. States he's having less pain in the foot today. Objective calves soft nontender, A&O x3 dressing removed. 4th painful with movement and palpation. Surgical wound at 5 th toe amp site looks a little better. No overt drainage. No odor. Redressed. Date Time Temp Pulse Resp B/P (MAP) Pulse Ox O2 Delivery O2 Flow Rate FiO2 01/15/18 15:19 37.4 91 18 142/66 (91) 95 Room Air 01/15/18 08:00 Room Air 01/15/18 07:28 36.8 84 18 142/80 (100) 97 Room Air 01/14/18 23:58 Room Air 01/14/18 22:59 36.8 70 18 169/72 (104) 92 Room Air 01/14/18 21:24 94 150/86 (107) 01/14/18 16:40 Room Air Laboratory Results 24 Hours: Test 01/15/18 07:41 Hematocrit 37.1 % Hemoglobin 12.9 g/dL Assessment & Plan Assessment: Left 4th toe gangrene s/p 5th toe amputation cellulitis PAD Plan: Plan for 4th toe amputation. Possibly tomorrow with Dr Kendrick Will make NPO after midnight
[2018-01-15] MEDS: TRAMADOL HCL 50 MG TAB PO PRN (16:40)
[2018-01-15] MEDS: INSULIN 70% ASPART PROTAMINE/30% ASPART SC SCH (19:00)
[2018-01-15] MEDS: NORTRIPTYLINE HCL 25 MG CAP PO SCH (22:01)
[2018-01-16] VITALS (8 sets, daily range): BP systolic 110–160; BP diastolic 72–88; PULSE 18–92; TEMP 36.6–36.9; O2SAT 93–100
[2018-01-16] MEDS: DICLOFENAC SOD 1% GEL 100 GM TUBE EXT SCH ×4 (00:45→19:10)
[2018-01-16] MEDS ORDERED: NURSING DECISION MEDICATION ORDER SCH ×2 (02:15→18:00)
[2018-01-16] MEDS: INSULIN ASPART 100 UNITS/ML 3 ML PEN SC SCH ×4 (05:48→22:41)
[2018-01-16] MEDS: DOCUSATE SODIUM/SENNA 50/8.6MG TAB PO SCH ×2 (08:50→22:47)
[2018-01-16] MEDS: ROSUVASTATIN CALCIUM 20 MG TAB PO SCH (08:51)
[2018-01-16] MEDS: LACTOBACILLUS ACIDOPHILUS (FLORANEX) TAB PO SCH ×3 (08:51→19:10)
[2018-01-16] MEDS: ACETAMINOPHEN 500 MG TAB PO SCH ×3 (08:51→22:20)
[2018-01-16] MEDS: MAGNESIUM OXIDE 400 MG TAB PO SCH (08:51)
[2018-01-16] MEDS: CILOSTAZOL 100 MG TAB PO SCH ×2 (08:51→22:22)
[2018-01-16] MEDS: IRBESARTAN 150 MG TAB PO SCH (08:52)
[2018-01-16] MEDS: ASPIRIN 81 MG ECTAB PO SCH (08:52)
[2018-01-16] MEDS: HYDROCHLOROTHIAZIDE 25 MG TAB PO SCH (08:52)
[2018-01-16] MEDS: METOPROLOL TARTRATE 25 MG TAB PO SCH ×2 (08:52→22:23)
[2018-01-16] MEDS: HYDROPHOR OINT 100 GM JAR EXT SCH ×2 (08:53→21:00)
[2018-01-16] MEDS: VANCOMYCIN IV 1,250 MG in SODIUM CHLORIDE 0.9% 250ML 250 ML IV SCH ×2 (10:42→22:44)
--- NOTE | 2018-01-16 13:29 | Progress Note ---
Subjective Date of Service: January 16, 2018. Subjective pt in OR, continues on vanco. blood cultures negative, afebrile. tolerating abx. Problem List Medical Problems: (1) Gangrene of left foot Status: Acute (2) Gangrene of toe of left foot Status: Acute (3) Left foot infection Status: Acute Objective Vital Signs Date Time Temp Pulse Resp B/P (MAP) Pulse Ox O2 Delivery O2 Flow Rate FiO2 01/16/18 08:30 Room Air 01/16/18 07:23 36.7 87 18 150/77 (101) 97 Room Air 01/16/18 00:42 Room Air 01/16/18 00:00 36.9 78 18 117/75 (89) 93 Room Air 01/15/18 15:19 37.4 91 18 142/66 (91) 95 Room Air 01/15/18 15:15 Room Air Laboratory Results Item Value Date Time Gram Stain - Final Complete 01/12/18 1042 Drainage-Deep Foot Left Blood Culture - Preliminary Resulted 01/12/18 0934 Blood NO GROWTH TO DATE. Blood Culture - Preliminary Resulted 01/12/18 0930 Blood NO GROWTH TO DATE. Last 24 Hours Test 01/15/18 17:06 01/15/18 21:07 01/16/18 05:47 01/16/18 11:58 Bedside Glucose 291 mg/dl 154 mg/dl 112 mg/dl 151 mg/dl Assessment and Plan (1) Gangrene of left foot Assessment & Plan: await OR findings, abx and duration will depend on extent of debridement, doubt significant abx delivery with underlying vascular disease. follow cultures.
[2018-01-16] MEDS ORDERED: BACITRACIN 50000 UNIT VIAL ONE (13:39)
--- NOTE | 2018-01-16 13:42 | History & Physical Bridge Note ---
H&P Re-Evaluation Bridge Note: I have examined the patient, reviewed the History & Physical and in the interval since the performance of the History & Physical I have noted the following changes of clinical significance: No changes noted
--- NOTE | 2018-01-16 13:43 | Hospitalist Progress Note ---
Hospitalist Progress Note Date of Service January 16, 2018. (Fransisca Pritchett PA-C) Subjective Pt evaluation today including: conversation w/ patient, physical exam, chart review, lab review, review of studies Pain: None PO Intake: NPO Voiding: no voiding problems The patient was seen and examined this morning. Pt reports doing ok. He has no acute complaints. Awaiting surgery this afternoon. Additional Comments: Constitutional: No fever, No chills, No sweats Respiratory: Minimal cough, no sputum No shortness of breath, No dyspnea on exertion Cardiovascular: No chest pain, No palpitations Abdomen: No pain, No nausea, No vomiting, No diarrhea, No constipation Musculoskeletal: + see HPI, No joint pain, No swelling Male : No dysuria Neurologic: No weakness, No numbness/tingling Psychiatric: No depression symptoms, No anxiety Skin: No rash, No itch (Fransisca Pritchett PA-C) Objective Vital Signs Date Time Temp Pulse Resp B/P (MAP) Pulse Ox O2 Delivery O2 Flow Rate FiO2 01/16/18 08:30 Room Air 01/16/18 07:23 36.7 87 18 150/77 (101) 97 Room Air 01/16/18 00:42 Room Air 01/16/18 00:00 36.9 78 18 117/75 (89) 93 Room Air 01/15/18 15:19 37.4 91 18 142/66 (91) 95 Room Air 01/15/18 15:15 Room Air (Fransisca Pritchett PA-C) Physical Exam Notes: General Appearance: WD/WN, no apparent distress, + pertinent finding ( ) Eyes: PERRL, EOMI ENT: hearing grossly normal, pharynx normal, + pertinent finding (MMM, poor dentition) Respiratory/Chest: lungs clear, no respiratory distress, no accessory muscle use, no adventitious breath sounds + pertinent finding (on RA) Cardiovascular: regular rate, rhythm, no murmur Abdomen: normal bowel sounds, non tender, soft Extremities: non-tender, no pedal edema, no calf tenderness, + pertinent finding (LLE wrapped in kerlix dressing, c/d/i, +callouses over the RLE foot) Neurologic/Psychiatric: alert, normal mood/affect, oriented x 3 Skin: normal color, warm/dry, + pertinent finding (see Extremity exam.) (Fransisca Pritchett PA-C) Laboratory Results Last 24 Hours Test 01/15/18 17:06 01/15/18 21:07 01/16/18 05:47 01/16/18 11:58 Bedside Glucose 291 mg/dl 154 mg/dl 112 mg/dl 151 mg/dl (Fransisca Pritchett PA-C) Assessment and Plan 57 yo M with pmhx of DMII on insulin, htn, copd, PAD s/p recent SFA HERMINIA stent , DVT in 2009 currently on coumadin, CAD, tobbaco dependence and recent fifth toe / 5th metatarsal head amputation for OM. Presents from [facility] with Left fourth toe discoloration and discharge from the previous wound on his left foot. 5th metatarsal head amp for OM with surgical wound dehiscence and infection Coag neg Staph + wound culture Left fourth toe discoloration possible dry gangrene - Ortho on board- Dr. Garcia, will continue aspirin and Plavix due to the recent stent and SFA, will Place Coumadin on hold but will not reverse INR at this point - coumadin and asa to resume after possible surgical procedure and stop plavix as this will be approximately 1 month out since balloon angio to the SFA. - Pt scheduled for surgery later today - Currently NPO - Dr. Kendrick - ID on board- appreciate recs: dc imipenum on 01/14: continue vanc (started 01/11 ) as Coag neg staph growing in wound culture. - Repeat INR= 1.2 today - Will need PT/OT after surg - currently NWB to LLE HTN -BP remains slightly elevated today in 150s but slightly improved overall - may be elevated in anticipation of surgery - started metoprolol 12.5 mg BID on 01/14 - continue today and follow BPs to determine if needs increase after surgery Hypomagnesemia - resolved, follow with am prp DMII on insulin - Continue insulin 70/30 subcu- HOLD this mornings dose as NPO and cover with ISS - normal regimen 25 U with breakfast and 30 U with dinner - ISS with accuchecks - Hemoglobin A1C= 7.5 about 3 weeks ago Essential hypertension CAD PAD s/p recent SFA with drug-eluting balloon by Dr. Mendez DVT in 2009 currently on coumadin - Cardiology consult- Dr. Mendez - no further intervention for vascularization- pt does not have a stent - continue asa alone at this time, STOP plavix now, and plan to transition to asa + coumadin after possible surgery - Continue asa 81 mg, plavix, pletal 100 mg BID, HCTZ 25 mg QAM Copd not in exacerbation tobacco dependence - Stable - Cessation encouraged at bedside - pt refuses nicotine patch- doing well without cigarettes/no withdrawal. - cont inhalers DVT ppx: teds, scds, asa 81 mg alone currently. CODE: FULL Disposition: From [facility], dc there after surgical procedure. Pt has 4-8 year sentence, scheduled for a mandate hearing in the near future to determine if he will be released soon. Has been there 4 yrs. (Fransisca Pritchett PA-C) Attending Attestation - Pt seen/examined, chart reviewed, care plan d/w CARY Pritchett. I agree w/ the godfrey components of her documentation. I saw the patient post-op. He offered no complaints of chest pain, dyspnea, abd pain, nausea. Reported pain in left ankle - stated "I think the bandage is too tight." VSS, no fever gen - nad neck - no JVD heart - RRR lungs - CTA b/l abd - soft ext - left foot wrapped in dressing and then PANTERA wrap; pulses difficult to feel due to the dressings; he was tender to touch over the left ankle w/ palpation A/P: Gangrene left 4th toe s/p amputation today. Superimposed coag negative staph infection of toe. Recent left fifth toe amputation as well as amputation of left 5th metatarsal head. PAD with recent intervention to left femoral artery but continued poor blow flow distally in the foot. Remains on vanco for gangrene, left 4th toe. Defer to ID but since toe is now gone...can we change to oral doxycycline or bactrim at discharge? other plans per Ms. Pritchett's documentation. Hypomagnesemia - replaced, recheck level in am. Yuriy DONATO MD (Chandler Donato MD)
[2018-01-16] MEDS ORDERED: LIDOCAINE HCL 2% 2 ML VIAL (20MG/ML) ONE (13:51)
[2018-01-16] MEDS ORDERED: PROPOFOL IV EMULSION 10 MG/ML 20 ML VIAL ONE (13:51)
[2018-01-16] MEDS ORDERED: DEXAMETHASONE SOD INJ 4 MG/ML VIAL ONE (13:51)
[2018-01-16] MEDS ORDERED: ONDANSETRON INJ 2 MG/ML 2 ML VIAL ONE (13:51)
[2018-01-16] MEDS ORDERED: MIDAZOLAM HCL 1 MG/ML 2ML VIAL ONE (13:51)
[2018-01-16] MEDS ORDERED: FENTANYL CITRATE INJ 50 MCG/1 ML 2 ML VIAL ONE ×2 (13:52→14:49)
--- NOTE | 2018-01-16 14:44 | [facility] Post Operative Brief Note ---
Immediate Operative Summary Operative Date January 16, 2018. Pre-Operative Diagnosis Left Foot Necrotic 4th Toe Post-Operative Diagnosis same as preop Procedure(s) Performed Left 4th Amputation Toe Surgeon Dr. Phillip Kendrick Head Of Operation And Logistics Surgeon(s) none Estimated Blood Loss 20ML Findings Consistent with Post-Op Diagnosis Specimens Permanent Solution: A.) Left 4th Toe Anesthesia Type General Complication(s) none Disposition Accompanied Pt To Recover: no Disposition: Recovery Room / PACU
[2018-01-16] MEDS ORDERED: ATROPINE SULFATE 0.1 MG/ML 5ML SYR IV PRN (14:45)
[2018-01-16] MEDS ORDERED: FENTANYL CITRATE INJ 50 MCG/1 ML 2 ML VIAL IV PRN (14:45)
[2018-01-16] MEDS ORDERED: EpHEDrine SULFATE INJ 50 MG/ML AMP IV PRN (14:45)
[2018-01-16] MEDS ORDERED: ONDANSETRON INJ 2 MG/ML 2 ML VIAL IV PRN (14:45)
[2018-01-16] MEDS ORDERED: PROMETHAZINE HCL INJ 6.25 MG in SODIUM CHLORIDE 0.9% 50ML 50 ML IV PRN (14:45)
[2018-01-16] MEDS ORDERED: METOPROLOL TARTRATE 1 MG/ML VIAL ONE (14:56)
[2018-01-16] MEDS ORDERED: NURSING VERBAL MED ORDER ONE ×3 (14:58→18:15)
--- NOTE | 2018-01-16 15:27 | Anesthesiology Progress Note ---
Anesthesia Post Op Note Date & Time January 16, 2018 at 15:27 Vital Signs Pain Intensity: 4 Vital Signs Past 12 Hours Date Time Temp Pulse Resp B/P (MAP) Pulse Ox O2 Delivery O2 Flow Rate FiO2 01/16/18 15:20 36.4 98 16 134/83 99 Nasal Cannula 2 01/16/18 15:10 98 16 149/91 99 Nasal Cannula 2 01/16/18 15:01 117 171/97 01/16/18 15:00 90 16 133/81 100 Nasal Cannula 2 01/16/18 14:50 117 16 171/97 100 Oxymask 10 01/16/18 14:40 118 16 182/112 100 Oxymask 10 01/16/18 14:34 37.0 114 16 123/86 99 Oxymask 10 01/16/18 08:30 Room Air 01/16/18 07:23 36.7 87 18 150/77 (101) 97 Room Air Notes Mental Status: alert / awake / arousable, participated in evaluation Pt Amnestic to Procedure: Yes Nausea / Vomiting: adequately controlled Pain: adequately controlled Airway Patency, RR, SpO2: stable & adequate BP & HR: stable & adequate Hydration State: stable & adequate Anesthetic Complications: no major complications apparent
[2018-01-16] MEDS: TRAMADOL HCL 50 MG TAB PO PRN ×2 (15:43→22:19)
--- NOTE | 2018-01-16 15:56 | OPERATIVE REPORT ---
DATE OF OPERATION: 01/16/2018 PREOPERATIVE DIAGNOSIS: Gangrenous fourth toe, left foot. POSTOPERATIVE DIAGNOSIS: Gangrenous fourth toe, left foot. PROCEDURE: Disarticulation fourth toe, left foot. SURGEON: Phillip Kendrick MD ANESTHESIA: General. COMPLICATIONS: None. DESCRIPTION OF PROCEDURE: Following induction of adequate general anesthesia, the patient's left leg was prepped and draped in usual sterile manner. An Esmarch was used as an ankle tourniquet. The fish mouth incision was made over the proximal phalanx of the fourth toe. Subperiosteal dissection was taken down to the metatarsophalangeal joint which was disarticulated. There was no purulence or necrotic debris noted at this joint. The wound was irrigated with a bulb syringe and closed with 3-0 nylon simple sutures. Sterile dressing of Adaptic, 4 x 4s, Kerlix and a 4-inch Donal was applied. The patient tolerated the procedure well. I attest to the content of the Intraoperative Record and any orders documented therein. Any exceptions are noted below. [email or web address]
[2018-01-16] MEDS: HYDROCODONE/ACETAMIN 5/325MG TAB PO PRN (18:37)
[2018-01-16] MEDS: INSULIN 70% ASPART PROTAMINE/30% ASPART SC SCH (19:14)
[2018-01-16] MEDS: NORTRIPTYLINE HCL 25 MG CAP PO SCH (22:22)
[2018-01-17] MEDS: DICLOFENAC SOD 1% GEL 100 GM TUBE EXT SCH ×5 (00:28→23:27)
[2018-01-17] MEDS: HYDROCODONE/ACETAMIN 5/325MG TAB PO PRN ×3 (00:30→23:26)
[2018-01-17 06:49] LABS: BASO % 0.1 %; BASO ABS # 0.01 K/uL (0-0.2); EOS % 4.5 %; EOS ABS # 0.34 K/uL (0-0.5); HEMATOCRIT 34.2 % (42-52); HEMOGLOBIN 11.9 g/dL (14.0-18.0); IG# 0.02 K/uL (0.00-0.02); LYMPH % 21.2 %; MEAN CELL VOLUME 86.6 fL (80-100); MEAN CORPUSCULAR HEMOGLOBIN 30.1 pg (25-34); MEAN CORPUSCULAR HGB CONC 34.8 g/dl (32-36); MEAN PLATELET VOLUME 9.6 fL (7.4-10.4); MONO % 9.7 %; MONO ABS # 0.73 K/uL (0.11-0.59); NEUT % 64.2 %; NEUT ABS # 4.86 K/uL (1.4-6.5); PLATELET COUNT 150 K/uL (130-400); RED CELL DISTRIBUTION WIDTH CV 14.5 % (11.5-14.5); RED CELL DISTRIBUTION WIDTH SD 45.8 fL (36.4-46.3); WHITE BLOOD COUNT 7.56 K/uL (4.8-10.8)
[2018-01-17 07:22] LABS: CALCIUM 9.4 mg/dl (8.5-10.1); CREATININE 1.03 mg/dl (0.60-1.40)
[2018-01-17 07:47] VITALS: BP 119/77; PULSE 80; TEMP 36.5; O2SAT 96
--- NOTE | 2018-01-17 08:05 | Anesthesiology Progress Note ---
Anesthesia Post Op Note Date & Time January 17, 2018 at 08:05 Vital Signs Vital Signs Past 12 Hours Date Time Temp Pulse Resp B/P (MAP) Pulse Ox O2 Delivery O2 Flow Rate FiO2 01/17/18 07:47 36.5 80 16 119/77 (91) 96 Room Air 01/17/18 00:28 Room Air 01/16/18 23:45 36.7 64 16 110/74 (86) 95 Room Air Notes Mental Status: alert / awake / arousable, participated in evaluation Pt Amnestic to Procedure: Yes Nausea / Vomiting: adequately controlled Pain: adequately controlled Airway Patency, RR, SpO2: stable & adequate BP & HR: stable & adequate Hydration State: stable & adequate Anesthetic Complications: no major complications apparent
--- NOTE | 2018-01-17 08:09 | Orthopedic Progress Note ---
Orthopedic Progress Note Date of Service January 17, 2018. Subjective Post OP Day: 1 Reports: feeling well, Denies: complaints Objective calves soft nontender, dressing C/D/I, A&O x3 Date Time Temp Pulse Resp B/P (MAP) Pulse Ox O2 Delivery O2 Flow Rate FiO2 01/17/18 07:47 36.5 80 16 119/77 (91) 96 Room Air 01/17/18 00:28 Room Air 01/16/18 23:45 36.7 64 16 110/74 (86) 95 Room Air 01/16/18 19:05 36.7 85 18 110/72 (85) 98 01/16/18 18:15 36.7 89 18 157/77 (103) 93 01/16/18 16:37 36.8 92 18 137/83 (101) 95 01/16/18 16:09 36.6 82 18 150/84 (106) 100 01/16/18 15:35 36.7 87 18 160/88 (112) 97 Room Air 01/16/18 15:35 97 Room Air 01/16/18 15:35 Room Air 01/16/18 15:20 36.4 98 16 134/83 99 Nasal Cannula 2 01/16/18 15:10 98 16 149/91 99 Nasal Cannula 2 01/16/18 15:01 117 171/97 01/16/18 15:00 90 16 133/81 100 Nasal Cannula 2 01/16/18 14:50 117 16 171/97 100 Oxymask 10 01/16/18 14:40 118 16 182/112 100 Oxymask 10 01/16/18 14:34 37.0 114 16 123/86 99 Oxymask 10 01/16/18 08:30 Room Air Laboratory Results 24 Hours: Test 01/17/18 05:59 White Blood Count 7.56 K/uL Red Blood Count 3.95 M/uL Hemoglobin 11.9 g/dL Hematocrit 34.2 % Mean Corpuscular Volume 86.6 fL Mean Corpuscular Hemoglobin 30.1 pg Mean Corpuscular Hemoglobin Concent 34.8 g/dl Platelet Count 150 K/uL Mean Platelet Volume 9.6 fL Neutrophils (%) (Auto) 64.2 % Lymphocytes (%) (Auto) 21.2 % Monocytes (%) (Auto) 9.7 % Eosinophils (%) (Auto) 4.5 % Basophils (%) (Auto) 0.1 % Neutrophils # (Auto) 4.86 K/uL Lymphocytes # (Auto) 1.60 K/uL Monocytes # (Auto) 0.73 K/uL Eosinophils # (Auto) 0.34 K/uL Basophils # (Auto) 0.01 K/uL Assessment & Plan Assessment: POD 1 s/p Left 4th toe amputation Left 4th toe gangrene s/p 5th toe amputation cellulitis PAD Plan for dressing change tomorrow and likely dc Plan: Possible D/C tomorrow Cont IV anbx Inhouse Planning Pain Management: Sophie Palacios
[2018-01-17] MEDS: IRBESARTAN 150 MG TAB PO SCH (08:39)
[2018-01-17] MEDS: CILOSTAZOL 100 MG TAB PO SCH ×2 (08:39→21:38)
[2018-01-17] MEDS: ASPIRIN 81 MG ECTAB PO SCH (08:39)
[2018-01-17] MEDS: MAGNESIUM OXIDE 400 MG TAB PO SCH (08:39)
[2018-01-17] MEDS: DOCUSATE SODIUM/SENNA 50/8.6MG TAB PO SCH ×2 (08:40→21:39)
[2018-01-17] MEDS: ROSUVASTATIN CALCIUM 20 MG TAB PO SCH (08:40)
[2018-01-17] MEDS: HYDROCHLOROTHIAZIDE 25 MG TAB PO SCH (08:40)
[2018-01-17] MEDS: HYDROPHOR OINT 100 GM JAR EXT SCH ×2 (08:41→21:38)
[2018-01-17] MEDS ORDERED: VANCOMYCIN TROUGH ONE (09:30)
[2018-01-17] MEDS: LACTOBACILLUS ACIDOPHILUS (FLORANEX) TAB PO SCH ×3 (09:31→18:11)
[2018-01-17] MEDS: METOPROLOL TARTRATE 25 MG TAB PO SCH ×2 (09:32→21:43)
[2018-01-17] MEDS: INSULIN ASPART 100 UNITS/ML 3 ML PEN SC SCH ×4 (09:36→21:53)
[2018-01-17] MEDS: VANCOMYCIN IV 1,250 MG in SODIUM CHLORIDE 0.9% 250ML 250 ML IV SCH ×2 (10:35→21:37)
[2018-01-17] MEDS ORDERED: ULT50X PO (12:18)
[2018-01-17] MEDS ORDERED: ONDA4TAB10 SL (12:18)
[2018-01-17] MEDS ORDERED: LCTX PO (12:18)
[2018-01-17] MEDS ORDERED: DOXY-300 PO (12:18)
[2018-01-17] MEDS ORDERED: LPR25 PO (12:18)
--- NOTE | 2018-01-17 12:32 | Discharge Instructions ---
Discharge Instructions Date of Service January 17, 2018. Admission Reason for Admission: Gangrene Of Left Foot Discharge Discharge Diagnosis / Problem: Gangrene of Left 4th toe Discharge Goals Goal(s): Decrease discomfort, Improve function, Increase independence, Improve disease control Activity Recommendations Activity Level: Up Ad Renata Weightbearing Status: Left partial (heel weight bearing only as tolerated) Lifting Limitations: none Exercise/Sports Limitations: none . Additional Information Patient informed of condition: Yes Advance Directives: No DNR: No Level of Care: Acute Rehab Communicable Disease: No Prognosis: Stable Instructions / Follow-Up Instructions / Follow-Up You were admitted to [facility] with Left 4th toe gangrene and cellulitis and diagnosed with the same. You underwent amputation of the left 4th toe. You were treated with IV antibiotics, fluids and and were evaluated by orthopedics. 01/16/18 - underwent Left 4th toe amputation by Dr. Kendrick. Follow instructions as per orthopedics in the security sales consultant recommendations below Continue taking the oral antibiotic as prescribed. Medications: Continue taking doxycycline 100 mg twice daily x 28 days. Finish course of antibiotics on 02/14/18. Take lactobacillus to promote good gut [place] while being on doxycycline. You have been given zofran for nausea if needed as doxycycline has possible side effect of gastrointestinal upset. Pain medication has been prescribed for a short course - after this use tylenol as needed. Metoprolol 12.5 mg twice daily has been added to your regimen for elevated blood pressure. Have your blood pressure checked daily x 1 week and have PCP at the [facility] follow up. Continue taking your other medications as prescribed. Appointments: Follow up with PCP within 1 week. Follow up with orthopedics within 1 week (Dr Berny Garcia - [facility]). Follow up with wound nurse for dressing change within 24 hours after discharge. Labs - 1. check fingerstick blood sugars 4x's a day (before meals and at bedtime) 2. check BMP and magnesium level in 4-5 days Current Hospital Diet Patient's current hospital diet: Diabetes Type 1 Diet Discharge Diet Recommended Diet: Diabetes Type 1 Diet Procedures Procedures Performed: Left 4th Amputation Toe Pending Studies Studies pending at discharge: no Physician Orders On Transfer Dressing Changes: daily for 5 days (to left foot), then every other day thereafter POLST Discussion: Not Applicable Laboratory Results Hemoglobin A1c Test 12/22/17 06:10 Range/Units Estimated Average Glucose 169 mg/dl Hemoglobin A1c 7.5 H 4.5-5.6 % Lipid Panel Test 12/19/17 06:32 Range/Units Triglycerides Level 42 0-150 mg/dl Cholesterol Level 127 0-200 mg/dl HDL Cholesterol 62 mg/dl Cholesterol/HDL Ratio 2.0 LDL Cholesterol, Calculated 57 mg/dl Medical Emergencies . Who to Call and When: Medical Emergencies: If at any time you feel your situation is an emergency, please call 911 immediately. . Non-Emergent Contact Non-Emergency issues call your: Primary Care Provider Call Non-Emergent contact if: you have a fever, temperature is above 100.5, your pain is not controlled, your pain is worsening, your pain is unusual for you, your pain is concerning you, you have any medication questions other concerns with your health. Call 911 or go directly to the Emergency Department if you experience any of the following: Chest pain, chest tightness, shortness of breath, abdominal pain , lightheadedness, dizziness, gastrointestinal bleeding, or have any other concerns regarding your health. . Past History Medical & Surgical History: (1) Left foot infection (2) Gangrene of left foot (3) Diabetes mellitus (4) PVD (peripheral vascular disease) (5) Hypertension (6) COPD (chronic obstructive pulmonary disease) . "Provider Documentation" section prepared by Paris Pritchett. . Track Machine Operator Repairer Recommendations Track Machine Operator Repairer Recommendations: ACTIVITY RECOMMENDATIONS: Limitations: Heel weight bearing only if able to tolerate. SPECIAL CARE INSTRUCTIONS: * Keep dressing clean and dry * Some drainage onto the dressing is normal and is no cause for alarm. * Some swelling is natural especially after walking. * When resting, keep your foot elevated above the level of your heart. * You can shower if you have a waterproof covering over the dressing. * Call [facility] if you notice: -Increased drainage -Fever over 101 degrees F -Severe constant pain BANDAGE: * Leave bandage/cast in place unless otherwise directed. * Dressing changes starting daily for first 5 days, then every other day FOLLOW UP VISIT WITH DR. GARCIA If appointment is not already scheduled: Please call [facility] after you get home today to schedule a follow-up appointment for [address] Garcia at . Core Measure Problem Core Measures: None [place] Drug Monitoring Program Search Results: no issues identified
--- NOTE | 2018-01-17 13:02 | Consultant Recommendations ---
Engineering Research Manager Recommendations Date of Service January 17, 2018. Engineering Research Manager Recommendations ACTIVITY RECOMMENDATIONS: Limitations: Heel weight bearing only if able to tolerate. SPECIAL CARE INSTRUCTIONS: * Keep dressing clean and dry * Some drainage onto the dressing is normal and is no cause for alarm. * Some swelling is natural especially after walking. * When resting, keep your foot elevated above the level of your heart. * You can shower if you have a waterproof covering over the dressing. * Call [facility] if you notice: -Increased drainage -Fever over 101 degrees F -Severe constant pain BANDAGE: * Leave bandage/cast in place unless otherwise directed. * Dressing changes starting daily for first 5 days, then every other day FOLLOW UP VISIT WITH DR. GLEZ If appointment is not already scheduled: Please call [facility] after you get home today to schedule a follow-up appointment for [address] Glez at .
--- NOTE | 2018-01-17 13:08 | Pharmacy Progress Note ---
Pharmacy Abx Dose Short Note Date of Service January 17, 2018. Assessment & Plan Assessment 57 year old male receiving Vancomycin IV for treatment of left foot cellulitis, gangrene * POD # 1 s/p left 4th toe amputation and s/p previous amputation of left 5th toe * Day # 6 of antimicrobial therapy this admission SPEC #: [id number] SÁNCHEZ: 01/12/18 STATUS: COMP REQ #: [id number] RECD: 01/12/18 [facility] DR: Raul,Ajit Chandler MD SOURCE: DRAIN-DEEP ENTR: 01/12/[address]: Ashleigh ONTIVEROS SPDESC: FOOT LEFT ORDERED: DEP WND CUL/SMR COMMENTS: Has Specimen Been Obtained/Collected? Y Procedure Result Verified Site GRAM STAIN Final 01/13/18-732 RESULT FEW WBCs SEEN RARE GRAM POSITIVE COCCI DEEP WOUND CULTURE Final 01/15/18-1148 Organism 1 COAG NEG STAPHYLOCOCCUS QUANITY FEW SENS NO SENSITIVITY TO FOLLOW Plan Continue Vancomycin for CONS cellulitis with gangrene of left 4th and 5th toe * Trough level of 18.6 mcg/mL is therapeutic * Continue dose of 1250 mg IV every 12 hours * Goal trough level: 15 to 20 mcg/mL * No further trough levels have been ordered per patient is expected to be discharged on 01/18 Pharmacy will continue to follow and will adjust dose/frequency as necessary. Thank you.
[2018-01-17 13:25] VITALS: BP 119/77; PULSE 80; TEMP 36.5; O2SAT 96
--- NOTE | 2018-01-17 14:15 | Hospitalist Progress Note ---
Hospitalist Progress Note Date of Service January 17, 2018. (Fransisca Pritchett PA-C) Subjective Pt evaluation today including: conversation w/ patient, physical exam, chart review, lab review, review of studies, conversation w/ consultant electronics Pain: Minimal left foot pain PO Intake: Good Voiding: no voiding problems The patient was seen and examined this morning. Pt reports doing well overall. minimal left foot pain, no numbness or tingling. Pt is requesting a knee brace for the L knee due to some chronic pain. He denies any other acute complaints. Additional Comments: Constitutional: No fever, No chills, No sweats Respiratory: Minimal cough, no sputum No shortness of breath, No dyspnea on exertion Cardiovascular: No chest pain, No palpitations Abdomen: No pain, No nausea, No vomiting, No diarrhea, No constipation Musculoskeletal: + see HPI, No joint pain, No swelling Male : No dysuria Neurologic: No weakness, No numbness/tingling Psychiatric: No depression symptoms, No anxiety Skin: No rash, No itch (Fransisca Pritchett, JUVENTINO) Objective Vital Signs Date Time Temp Pulse Resp B/P (MAP) Pulse Ox O2 Delivery O2 Flow Rate FiO2 01/17/18 13:25 36.5 80 16 96 Room Air 01/17/18 07:47 36.5 80 16 119/77 (91) 96 Room Air 01/17/18 07:30 Room Air 01/17/18 00:28 Room Air 01/16/18 23:45 36.7 64 16 110/74 (86) 95 Room Air 01/16/18 19:05 36.7 85 18 110/72 (85) 98 01/16/18 18:15 36.7 89 18 157/77 (103) 93 01/16/18 16:37 36.8 92 18 137/83 (101) 95 01/16/18 16:09 36.6 82 18 150/84 (106) 100 01/16/18 15:35 36.7 87 18 160/88 (112) 97 Room Air 01/16/18 15:35 97 Room Air 01/16/18 15:35 Room Air 01/16/18 15:20 36.4 98 16 134/83 99 Nasal Cannula 2 01/16/18 15:10 98 16 149/91 99 Nasal Cannula 2 01/16/18 15:01 117 171/97 01/16/18 15:00 90 16 133/81 100 Nasal Cannula 2 01/16/18 14:50 117 16 171/97 100 Oxymask 10 01/16/18 14:40 118 16 182/112 100 Oxymask 10 01/16/18 14:34 37.0 114 16 123/86 99 Oxymask 10 (Fransisca Pritchett PA-C) Physical Exam Notes: General Appearance: WD/WN, no apparent distress, + pertinent finding ( ) Eyes: PERRL, EOMI ENT: hearing grossly normal, pharynx normal, + pertinent finding (MMM, poor dentition) Respiratory/Chest: lungs clear, no respiratory distress, no accessory muscle use, no adventitious breath sounds + pertinent finding (on RA) Cardiovascular: regular rate, rhythm, no murmur Abdomen: normal bowel sounds, non tender, soft Extremities: non-tender, no pedal edema, no calf tenderness, + pertinent finding (LLE wrapped in kerlix and PANTERA dressing, c/d/i, +callouses over the RLE foot) Neurologic/Psychiatric: alert, normal mood/affect, oriented x 3 Skin: normal color, warm/dry, + pertinent finding (see Extremity exam.) (Fransisca Pritchett PA-C) Laboratory Results Last 24 Hours Test 01/16/18 15:08 01/16/18 17:13 01/16/18 20:04 01/17/18 05:59 Bedside Glucose 145 mg/dl 204 mg/dl 246 mg/dl White Blood Count 7.56 K/uL Red Blood Count 3.95 M/uL Hemoglobin 11.9 g/dL Hematocrit 34.2 % Mean Corpuscular Volume 86.6 fL Mean Corpuscular Hemoglobin 30.1 pg Mean Corpuscular Hemoglobin Concent 34.8 g/dl Platelet Count 150 K/uL Mean Platelet Volume 9.6 fL Neutrophils (%) (Auto) 64.2 % Lymphocytes (%) (Auto) 21.2 % Monocytes (%) (Auto) 9.7 % Eosinophils (%) (Auto) 4.5 % Basophils (%) (Auto) 0.1 % Neutrophils # (Auto) 4.86 K/uL Lymphocytes # (Auto) 1.60 K/uL Monocytes # (Auto) 0.73 K/uL Eosinophils # (Auto) 0.34 K/uL Basophils # (Auto) 0.01 K/uL RDW Standard Deviation 45.8 fL RDW Coefficient of Variation 14.5 % Immature Granulocyte % (Auto) 0.3 % Immature Granulocyte # (Auto) 0.02 K/uL Sodium Level 136 mmol/L Potassium Level 4.0 mmol/L Chloride Level 101 mmol/L Carbon Dioxide Level 31 mmol/L Anion Gap 4.0 mmol/L Blood Urea Nitrogen 21 mg/dl Creatinine 1.03 mg/dl Est Creatinine Clear Calc Drug Dose 84.2 ml/min Estimated GFR () 91.7 Estimated GFR (Non- 79.1 BUN/Creatinine Ratio 20.7 Random Glucose 61 mg/dl Calcium Level 9.4 mg/dl Magnesium Level 1.9 mg/dl Test 01/17/18 08:20 01/17/18 09:00 01/17/18 09:48 Bedside Glucose 69 mg/dl 86 mg/dl Vancomycin Level Trough 18.6 mcg/ml (Fransisca Pritchett, PARasta) Assessment and Plan 57 yo M with pmhx of DMII on insulin, htn, copd, PAD s/p recent SFA HERMINIA stent , DVT in 2009 currently on coumadin, CAD, tobbaco dependence and recent fifth toe / 5th metatarsal head amputation for OM. Presents from [facility] with Left fourth toe discoloration and discharge from the previous wound on his left foot. 5th metatarsal head amp for OM with surgical wound dehiscence and infection Coag neg Staph + wound culture Left fourth toe discoloration possible dry gangrene - sp Amputation of the L 4th toe on 01/16/18. - Ortho on board- Dr. Garcia, will continue aspirin and Plavix due to the recent stent and SFA, will Place Coumadin on hold but will not reverse INR at this point - coumadin and asa to resume after possible surgical procedure and stop plavix as this will be approximately 1 month out since balloon angio to the SFA. - Repeat INR= 1.2 today - ID on board- appreciate recs: dc imipenum on 01/14: continue vanc (started 01/11 ) as Coag neg staph growing in wound culture- will plan to send out on Doxycycline 100 mg BID x 4 week total. -Can weight bear partial to R heel as tolerated - planned to have initial dressing changed tomorrow morning by ortho team. HTN -BP remains slightly elevated today in 150s but slightly improved overall - may be elevated in anticipation of surgery - started metoprolol 12.5 mg BID on 01/14 - continue at time of discharge as Hypomagnesemia - resolved, follow with am prp DMII on insulin - Continue insulin 70/30 subcu- normal regimen 25 U with breakfast and 30 U with dinner - ISS with accuchecks - Hemoglobin A1C= 7.5 about 3 weeks ago Essential hypertension CAD PAD s/p recent SFA with drug-eluting balloon by Dr. Mendez DVT in 2009 currently on coumadin - Cardiology consult- Dr. Mendez - no further intervention for vascularization- pt does not have a stent - continue asa alone at this time, STOP plavix now, and plan to transition to asa + coumadin after possible surgery - Continue asa 81 mg, plavix, pletal 100 mg BID, HCTZ 25 mg QAM Copd not in exacerbation tobacco dependence - Stable - Cessation encouraged at bedside - pt refuses nicotine patch- doing well without cigarettes/no withdrawal. - cont inhalers DVT ppx: teds, scds, asa 81 mg alone currently. CODE: FULL Disposition: From [facility], [place] likely tomorrow. Pt has 4-8 year sentence, scheduled for a mandate hearing in the near future to determine if he will be released soon. Has been there 4 yrs. (Fransisca Pritchett PA-C) Attending Attestation - Pt seen/examined, chart reviewed, care plan d/w CARY Pritchett. I agree w/ the godfrey components of her documentation except it is partial weight bearing to LEFT heel. Pt feeling well today; offered no complaints. VSS, no fever gen - nad neck - no JVD heart - RRR lungs - CTA b/l abd - soft ext - left foot wrapped in dressing and PANTERA wrap; pulses 1+; nontender to palpation over any site A/P: Gangrene left 4th toe s/p amputation, POD #1. Superimposed coag negative staph infection of toe. Recent left fifth toe amputation as well as amputation of left 5th metatarsal head. PAD with recent intervention to left femoral artery but continued poor blow flow distally in the foot. Remains on vanco for gangrene, left 4th toe. d/c other IV abx. Tomorrow change to doxycycline 100mg po BID x 4 weeks. Other medical problems stable hopefully d/c to retirement tomorrow Yuriy DONATO MD (Chandler Donato MD)
[2018-01-17 14:52] VITALS: BP 122/72; PULSE 87; TEMP 36.6; O2SAT 94
[2018-01-17] MEDS: INSULIN 70% ASPART PROTAMINE/30% ASPART SC SCH (18:25)
[2018-01-17] MEDS ORDERED: NURSING VERBAL MED ORDER ONE (18:45)
[2018-01-17] MEDS: NORTRIPTYLINE HCL 25 MG CAP PO SCH (21:39)
[2018-01-17 21:41] VITALS: BP 159/63; PULSE 87
[2018-01-17 23:30] VITALS: BP 126/79; PULSE 73; TEMP 37.1; O2SAT 97
[2018-01-18] MEDS: DICLOFENAC SOD 1% GEL 100 GM TUBE EXT SCH ×2 (05:54→11:46)
[2018-01-18 08:34] VITALS: BP 158/80; PULSE 75; TEMP 36.6; O2SAT 96
--- NOTE | 2018-01-18 09:24 | Orthopedic Progress Note ---
Orthopedic Progress Note Date of Service January 18, 2018. Subjective Post OP Day: 2 Reports: feeling well, Denies: chest pain, SOB, nausea / vomiting, light headedness, calf pain Objective calves soft nontender, incision C/D/I, A&O x3, toes mobile INCISIONAL AREA CDI. NO DRAINAGE. Date Time Temp Pulse Resp B/P (MAP) Pulse Ox O2 Delivery O2 Flow Rate FiO2 01/18/18 08:34 36.6 75 16 158/80 (106) 96 Room Air 01/18/18 07:30 Room Air 01/17/18 23:30 37.1 73 18 126/79 (95) 97 Room Air 01/17/18 21:41 87 159/63 (95) 01/17/18 19:00 Room Air 01/17/18 14:52 36.6 87 16 122/72 (89) 94 01/17/18 13:25 36.5 80 16 96 Room Air Assessment & Plan Assessment: POD 2 s/p Left 4th toe amputation Left 4th toe gangrene s/p 5th toe amputation cellulitis PAD Plan for dressing change tomorrow and likely dc Plan: ORTHOPEDICALLY STABLE. CONTINUE DRESSING CHANGES/WOUND CARE. CONVERT IV ABX TO PO DOXY AND LIKELY DC TODAY ORTHO WILL SIGN OFF. FOLLOW UP IN 2 WEEKS. [id number] PATIENT REQUESTING KNEE BRACE FOR LEFT KNEE. WILL HAVE DR. GLEZ DISCUSS WITH PATIENT LATER TODAY. Inhouse Planning Pain Management: Sophie Palacios
--- NOTE | 2018-01-18 09:24 | Consultant Recommendations ---
Sandblasting Supervisor Recommendations Date of Service January 18, 2018. Sandblasting Supervisor Recommendations ACTIVITY RECOMMENDATIONS: Limitations: Heel weight bearing only if able to tolerate. SPECIAL CARE INSTRUCTIONS: * Keep dressing clean and dry * Some drainage onto the dressing is normal and is no cause for alarm. * Some swelling is natural especially after walking. * When resting, keep your foot elevated above the level of your heart. * You can shower if you have a waterproof covering over the dressing. * Call [facility] if you notice: -Increased drainage -Fever over 101 degrees F -Severe constant pain BANDAGE: * Leave bandage/cast in place unless otherwise directed. * Dressing changes starting daily for first 5 days, then every other day FOLLOW UP VISIT WITH DR. GLEZ If appointment is not already scheduled: Please call [facility] after you get home today to schedule a follow-up appointment for [address] Glez at .
[2018-01-18] MEDS: METOPROLOL TARTRATE 25 MG TAB PO SCH (09:26)
[2018-01-18] MEDS: IRBESARTAN 150 MG TAB PO SCH (09:26)
[2018-01-18] MEDS: ASPIRIN 81 MG ECTAB PO SCH (09:27)
[2018-01-18] MEDS: MAGNESIUM OXIDE 400 MG TAB PO SCH (09:27)
[2018-01-18] MEDS: ROSUVASTATIN CALCIUM 20 MG TAB PO SCH (09:27)
[2018-01-18] MEDS: HYDROCHLOROTHIAZIDE 25 MG TAB PO SCH (09:27)
[2018-01-18] MEDS: LACTOBACILLUS ACIDOPHILUS (FLORANEX) TAB PO SCH ×2 (09:28→12:58)
[2018-01-18] MEDS: CILOSTAZOL 100 MG TAB PO SCH (09:28)
[2018-01-18] MEDS: DOCUSATE SODIUM/SENNA 50/8.6MG TAB PO SCH (09:28)
[2018-01-18] MEDS: HYDROPHOR OINT 100 GM JAR EXT SCH (09:29)
[2018-01-18] MEDS: VANCOMYCIN IV 1,250 MG in SODIUM CHLORIDE 0.9% 250ML 250 ML IV SCH (09:29)
[2018-01-18] MEDS: INSULIN ASPART 100 UNITS/ML 3 ML PEN SC SCH ×3 (09:33→17:18)
[2018-01-18] MEDS ORDERED: ASPI-320 PO (13:49)
[2018-01-18] MEDS: HYDROCODONE/ACETAMIN 5/325MG TAB PO PRN (14:22)
[2018-01-18 15:49] VITALS: BP 156/85; PULSE 80; TEMP 36.8; O2SAT 93
[2018-01-18] MEDS: INSULIN 70% ASPART PROTAMINE/30% ASPART SC SCH (17:19)
--- NOTE | 2018-01-22 08:41 | Discharge Summary ---
Discharge Summary Date of Service January 21, 2018. 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 Type 2 Diabetes 2. Hypertension 3. Hyperlipidemia 4. Prior hammertoe surgery. 5. Questionable COPD. 6. Questionable coronary artery disease. 7. History of possible left lower extremity DVT in 2009 on anticoagulation. 8. Peripheral arterial disease -- post endovascular intervention - 12/18/2017 Summary: 1. Left lower extremity with occluded distal SFA and single vessel distal runoff (occluded PT/AT). 2. Right lower extremity with mild to moderate distal SFA/popliteal disease and two vessel distal runoff with occluded PT. 3. Successful [employer] with drug-eluting balloon to left distal SFA artery (5.0 x 120 Metronic BARBARA) 9. hypomagnesemia - resolved 10. tobacco dependence Procedures: 1. left leg arterial doppler - IMPRESSION: 1. Advanced atherosclerotic disease is present within the arteries of the left lower extremity. 2. A stent is present in the mid to distal superficial femoral artery and extending into the popliteal artery. The stent appears patent. 3. No flow was shown within the midportion of the posterior tibial artery, possibly related to densely calcified plaque. The calf arteries are otherwise patent as imaged. See above for velocity measurements. 4. Ankle-brachial indices could not be assessed. 2. amputation of LEFT 4th toe - Phillip Kendrick MD 3. left foot x-rays - IMPRESSION: 1. Soft tissue swelling with no acute bony abnormality identified. 2. Osteopenia with degenerative, chronic posttraumatic, and postoperative changes as above. Consultations: orthopedics infectious disease cardiology Medication Reconciliation New Medications: Doxycycline (Monohydrate) (Doxycycline) 100 Mg Cap 100 MG PO BID for 28 Days, #56 CAP Ondasetron Odt (Zofran Odt) 4 Mg Tab 4 MG SL Q6H PRN for Nausea, #30 TAB Lactobacillus Acidophilus (Floranex) 1 Tab Tab 4 TAB PO TIDM for 30 Days, #90 TAB Metoprolol Tartrate (Lopressor) 25 Mg Tab 12.5 MG PO BID for 30 Days, #30 TAB Tramadol HCl (Tramadol HCl) 50 Mg Tab 50 MG PO Q6H PRN for Pain for 3 Days, #12 TAB Changed Medications: Aspirin (Aspirin EC Low Dose) 81 Mg Ectab 81 MG PO DAILY for 30 Days, #30 TABS 11 Refills (Changed from: Refills: ; Removed Instructions) Continued Medications: Acetaminophen (Tylenol) 500 Mg Tab 1000 MG PO TID, TAB Ciclesonide (Alvesco) 160 Mcg/Act Aer 1 PUFF INH BID Diclofenac Sod (Voltaren) 100 Appln/100 Gm Gel 4 APPLN EXT Q6H for 7 Days apply to left knee as needed for pain Emollient Ointment (Hydrophor) 454 Gm Oint 1 DOSE TOP BID Hydrochlorothiazide (Hctz) 25 Mg Tab 25 MG PO QAM, TAB Insulin Human Isophan/Regular (Humulin 70/30) Inj 25 UNITS SC QAM Insulin Human Isophan/Regular (Humulin 70/30) Inj 30 UNITS SC QPM, VIAL Irbesartan (Irbesartan) 300 Mg Tab 1 TAB PO DAILY for 30 Days, #30 TAB 0 Refills Levalbuterol Tartrate (Levalbuterol Tartrate Hfa) 45 Mcg/Act Aer 45 MCG INH TID PRN for PRN Nortriptyline (Pamelor) 25 Mg Cap 25 MG PO HS, CAP CRUSH Polyethylene (Miralax) 17 Gm Pow 17 GM PO DAILY PRN for Constipation for 30 Days Rosuvastatin Calcium (Crestor) 40 Mg Tab 1 TAB PO DAILY, TAB Sennosides-Docusate Sodium (Senokot S) 1 Tab Tab 1 TAB PO BID for 30 Days, TAB Warfarin Sod (Coumadin) 10 Mg Tab 10 MG PO HS Discontinued Medications: Cilostazol (Pletal) 100 Mg Tab 100 MG PO BID, TAB Clopidogrel (Plavix) 75 Mg Tab 75 MG PO DAILY, TAB Meloxicam (Mobic) 7.5 Mg Tab 7.5 MG PO HS, TAB Referrals At Discharge Follow up Referrals: Orthopedics Referral - Within 1 Week with Pantera Garcia D.O. Discharge Exam Physical Exam: General Appearance: no apparent distress ENT: pharynx normal Neck: no JVD Respiratory/Chest: lungs clear, no respiratory distress, no accessory muscle use Cardiovascular: regular rate, rhythm, no gallop, no murmur Abdomen / GI: normal bowel sounds, non tender, soft, no organomegaly Extremities: + pedal edema, + pertinent finding (pulses left foot1+, right foot about 1-2+) Neurologic/Psychiatric: alert, oriented x 3 Skin: + rash (severe dystrophic toenails b/l ), + pertinent finding (left foot wrapped in dressing; dressing removed; prior 5th toe amputation site clean , intact; 4th toe amputation site clean with intact sutures; no drainage; no cellulitis; toes 1-3 intact with adequate cap refill) Hospital Course HISTORY OF PRESENT ILLNESS: 57yo man with PMH of T2DM on insulin, HTN, COPD, PAD s/p recent SFA HERMINIA stent, DVT in 2009 currently on coumadin, CAD, tobacco dependence and recent fifth toe / 5th metatarsal head amputation for osteomyelitis. Patient presented from [facility] with left fourth toe discoloration and discharge from the previous wound on his left foot. Patient denies any fever or chills, said that he only had some bloody discharge coming from the wound of his previous surgery, also appears to have some dehiscence. Patient went to the senior living nurse for wound change. He was told by the nurse of the senior living that his wound looks infected, with discharge, also there is a discoloration in his fourth toe. He was sent to the ED for further evaluation. 3 weeks ago he had a drug-eluting stent in his left SFA done by Dr. Freddy Mendez. He was supposed to be on aspirin and Plavix, patient stated that he ran out of his aspirin in senior living about a week ago. He has not been taking his aspirin. He thinks he has been taking his Plavix but is not sure. He also has been taking his Coumadin and his INR is therapeutic. HOSPITAL COURSE: The patient was treated for his left foot infection and gangrenous left 4th toe with broad-spectrum IV antibiotics initially. The antibiotics were de-escalated to IV vancomycin once his culture showed coagulative negative staph. He ultimately went to the OR with Dr. Phillip Kendrick who performed left 4th toe amputation. Post-op he did well with stable vitals and stable lab studies. Blood cultures remained negative while hospitalized. He was seen in consult by Infectious Disease who recommended another 4 weeks of oral doxycycline 100mg BID for the coagulative negative staph following his discharge. Since the patient had been on plavix for about 1 month s/p left leg stent this was discontinued and he will remain on aspirin indefinitely. He will also resume his coumadin at time of discharge for his prior history of DVT and INR should be repeated in about 5 days to ensure stability. Total Time Spent: Greater than 30 minutes This includes examination of the patient, discharge planning, medication reconciliation, and communication with other providers. Discharge Instructions Please refer to the electronic Patient Visit Report (Discharge Instructions) for additional information. Follow-Up see Dr. Kendrick or Dr. Garcia within 1 week see PCP within 1 week dressing changes daily to left foot, then every other day thereafter Additional Copies To Pantera Garcia D.O.; Jennifer. Laura D.O.; Phillip Kendrick M.D.; [place] [facility]
== END 2018-01-18 17:46 | disposition home or self-care (01) | DRG 256 ==
LOC: C.EDB 08:51 → C.2E 14:51 → EDBEDREQ 15:15 → ENRESERV 15:18 → EDBEDREQSVC 01-14 14:00 → ENRESERV 01-14 14:19 → C.MSN 01-14 16:55
PROVIDERS: ADMIT Internal Medicine; ATTEND Internal Medicine
PROC: 0Y6W0Z0 Detachment at Left 4th Toe, Complete, Open Approach (ICD-10-PCS; principal; 2018-01-16 14:15)
DX: E11.52 Type 2 diabetes mellitus with diabetic peripheral angiopathy with gangrene (principal); L03.116 Cellulitis of left lower limb; I73.9 Peripheral vascular disease, unspecified; J44.9 Chronic obstructive pulmonary disease, unspecified; I10 Essential (primary) hypertension; F17.200 Nicotine dependence, unspecified, uncomplicated; Z79.82 Long term (current) use of aspirin; Z79.01 Long term (current) use of anticoagulants; Z79.4 Long term (current) use of insulin; Z86.718 Personal history of other venous thrombosis and embolism; I25.10 Atherosclerotic heart disease of native coronary artery without angina pectoris; Z98.890 Other specified postprocedural states; Z89.422 Acquired absence of other left toe(s); E78.5 Hyperlipidemia, unspecified; B95.8 Unspecified staphylococcus as the cause of diseases classified elsewhere; E83.42 Hypomagnesemia